=== PATIENT | female | born 1955 | race Caucasian/White ===

== ENCOUNTER 2016-07-03 05:57 | Inpatient (IN) | payer OTHER, MEDICARE ==
[2016-07-03] MEDS ORDERED: ONDANSETRON 4 MG/2 ML VIAL IVPB ONE ×2 (07:27→09:47)
[2016-07-03] MEDS ORDERED: HYDROmorphone HCL CARPU-JECT 1 MG/1 ML DISP.SYRIN IVPB ONE ×2 (07:29→09:48)
[2016-07-03] MEDS ORDERED: SODIUM CHLORIDE 1,000 ML IV STA (07:29)
[2016-07-03] MEDS ORDERED: HYDROmorphone HCL CARPU-JECT 1 MG/1 ML DISP.SYRIN ONE ×2 (07:50→09:49)
[2016-07-03] MEDS ORDERED: ONDANSETRON 4 MG/2 ML VIAL ONE ×2 (07:51→09:49)
--- NOTE | 2016-07-03 08:03 | PDOC ---
History of Present Illness - General Chief Complaint: Pain Stated Complaint: ABD PAIN Time Seen by Provider: 07/03/16 07:15 History Source: Patient Exam Limitations: No Limitations - History of Present Illness Initial Comments: 07/03/16 07:58 61-year-old female with history of chronic pancreatitis secondary to pancreatic divisum complains of worsening diffuse abdominal pain for the past 2 days, constant, nonradiating, moderate to severe, with anorexia and nausea. Patient reports that she is intermittently suffering from constipation alternating with diarrhea. Pain is intermittently relieved by Lortab. Patient denies fever/chills /melena/bright red blood per rectum/dysuria/hematuria. Patient was seen and evaluated by her primary care physician who referred her to the ER for further management. REVIEW OF SYSTEMS CONSTITUTIONAL: No fever, no chills, no fatigue EYES: No visual changes ENT: No ear pain, no sore throat CARDIOVASCULAR: No chest pain, no palpitations RESPIRATORY: No cough, no SOB GI: + abdominal pain, + nausea, no vomiting, +constipation, + diarrhea GENITOURINARY: No dysuria, no frequency, no hematuria MUSKULOSKELETAL: No backpain, no joint pain, no myalgias SKIN: No rash NEURO: No headache EXAMINATION CONSTITUTIONAL: Alert and awake; in mild distress HEAD: Normocephalic; atraumatic EYES: PERRL; EOM intact; no scleral icterus; conjunctiva are pink ENMT: External appears normal; mm-dry NECK: Supple; non-tender; no cervical lymphadenopathy CARD: Normal S1, S2; no murmurs, rubs, or gallops RESP: Normal chest excursion with respiration; breath sounds clear and equal bilaterally; no wheezes, rhonchi, or rales ABD: Soft, non-distended; + diffuse tender in all 4 quadrants ; bowel sounds are decreased in all 4 quadrants; no palpable organomegaly, no CVA tenderness bilaterally; EXT: Normal ROM in all four extremities; non-tender to palpation; distal pulses intact SKIN: Warm, dry, no rash NEURO: No focal neurological deficiencies. Past History - Past Medical History Allergies/Adverse Reactions: Allergies Allergy/AdvReac Type Severity Reaction Status Date / Time morphine Allergy Itching Verified 07/03/16 06:20 Sulfa (Sulfonamide Allergy Verified 07/03/16 06:20 Antibiotics) Home Medications: Ambulatory Orders Alprazolam 1 mg PO BID 05/17/14 Citalopram Hydrobromide [Celexa -] 20 mg PO BID 05/17/14 Lipase/Protease/Amylase [Chuon Dr 36,000 Units Capsule] 1 each PO TIDCM Ondansetron HCl [Zofran] 4 mg PO Q6H PRN #90 tablet 05/19/14 Polyethylene Glycol 3350 [Miralax 119 gm Btl -] 17 gm PO BID PRN 04/30/16 Ranitidine [Zantac -] 150 mg PO BID 04/30/16 Pantoprazole Sodium [Protonix -] 40 mg PO DAILY #30 tablet.ec 05/05/16 Anemia: No Asthma: No Cancer: No Cardiac Disorders: No CVA: No COPD: No CHF: No Dementia: No Diabetes: Yes GI Disorders: Yes (Pancreatitis, PANCREATIC DIVISUM) Disorders: No HTN: No Hypercholesterolemia: No Liver Disease: No Psychiatric Problems: Yes (ANXIETY) Suicide Attempt (Hx): No Seizures: No Thyroid Disease: No - Surgical History Abdominal Surgery: Yes (LAP ENDOMETRIOSIS, Pancreatic Surgery ) Appendectomy: No Cardiac Surgery: No Cholecystectomy: Yes Lung Surgery: No Neurologic Surgery: No Orthopedic Surgery: Yes (LAMENECTOMY 2004) - Immunization History Immunization Up to Date: No - Psycho/Social/Smoking Cessation Hx Anxiety: No Suicidal Ideation: No Smoking Status: No Smoking History: Never smoked Have you smoked in the past 12 months: No Number of Cigarettes Smoked Daily: 0 Information on smoking cessation initiated: No 'Breaking Loose' booklet given: 04/15/13 Hx Alcohol Use: No Drug/Substance Use Hx: No Substance Use Type: None Hx Substance Use Treatment: No *Physical Exam - Vital Signs Last Vital Signs Temp Pulse Resp BP Pulse Ox 97.5 F L 81 19 139/87 100 07/03/16 06:13 07/03/16 06:13 07/03/16 06:13 07/03/16 06:13 07/03/16 06:13 ED Treatment Course - LABORATORY CBC & Chemistry Diagram: 07/03/16 07:46 07/03/16 07:46 - RADIOLOGY Radiology Studies Ordered: Category Date Time Status ABDOMEN & PELVIS CT WITH CONTR [CT] Stat CT Scan 07/03/16 07:29 Ordered - Medications Given in the ED: ED Medications Discontinued Medications Generic Name Dose Route Start Last Admin Trade Name Gurpreet PRN Reason Stop Dose Admin Hydromorphone HCl 1 mg 07/03/16 07:29 07/03/16 07:52 Dilaudid Injection - IVPB 07/03/16 07:30 1 mg ONCE ONE Administration Ondansetron HCl 4 mg 07/03/16 07:27 07/03/16 07:52 Zofran Injection IVPB 07/03/16 07:28 4 mg ONCE ONE Administration Medical Decision Making - Medical Decision Making 07/03/16 08:02 Patient 61-year-old female with history of chronic pancreatitis due to pancreatic divisum who presents with diffuse abdominal pain. Differential diagnoses includes chronic pancreatitis versus pseudocyst formation versus small bowel obstruction versus colitis versus acute gastroenteritis. Will hydrate, we'll administer antiemetics and parenteral pain medication. Will obtain CT that and pelvis with by mouth and IV contrast. Will reassess. 07/03/16 09:59 Patient reassessed. Patient is resting comfortably, complaining of mild discomfort only and minimal nausea. Repeat exam reveals diffuse mild tenderness. CBC is within normal limit. CMP reveals increased BUN to creatinine ratio, normal LFTs and lipase. Urinalysis is unremarkable. We'll continue to hydrate, we'll administer additional doses of antiemetics and pain medication. Awaiting CT of abdomen and pelvis. 07/03/16 12:06 CT of abdomen and pelvis reveals mild distention of small bowel loops in the left upper and left lower quadrants as well as thickening of the wall of distal left colon. Differential diagnoses includes ileus versus partial versus early SBO versus enteritis/colitis. At this time, patient will be admitted further evaluation and treatment as well as GI consultation. Will keep nothing by mouth. Will switch to D5 half-normal NS for maintenance hydration. *DC/Admit/Observation/Transfer Diagnosis at time of Disposition: Small bowel obstruction, Dehydration Abdominal pain Qualifiers: Abdominal location: generalized Qualified Code(s): R10.84 - Generalized abdominal pain - Discharge Dispostion Condition at time of disposition: Fair Admit: Yes
[2016-07-03 08:48] LABS: BASOPHIL 0.6 % (0-2.0); EOSINOPHIL 3.2 % (0-4.5); MCH 29.3 pg (25.7-33.7); MCHC 33.2 g/dl (32.0-36.0); MEAN CELL VOLUME 88.3 fl (80-96); MEAN PLT VOLUME 6.7 fl (7.5-11.1); NEUTROPHILS 47.3 % (42.8-82.8); PLATELET COUNT 262 K/MM3 (134-434); RDW 12.6 % (11.6-15.6); WHITE BLOOD COUNT 5.4 K/mm3 (4.0-10.0)
[2016-07-03 08:51] LABS: URINE APPEARANCE CLEAR; URINE BILIRUBIN NEGATIVE (NEGATIVE); URINE BLOOD NEGATIVE (NEGATIVE); URINE COLOR LTYELLOW; URINE GLUCOSE (UA) NEGATIVE (NEGATIVE); URINE KETONE NEGATIVE (NEGATIVE); URINE LEUK ESTERASE NEGATIVE (NEGATIVE); URINE NITRITE NEGATIVE (NEGATIVE); URINE PROTEIN NEGATIVE (NEGATIVE); URINE UROBILINOGEN NEGATIVE E.U./dl (0.2-1.0)
[2016-07-03 09:05] LABS: INR 1.08 (0.82-1.09); PROTHROMBIN TIME (PATIENT) 11.9 SEC (9.98-11.88)
[2016-07-03 09:31] LABS: ALBUMIN 4.1 g/dl (3.4-5.0); ALK PHOS 87 U/L (45-117); ANION GAP 8 (8-16); BILIRUBIN,TOTAL 0.5 mg/dL (0.2-1.0); CO2 31 mmol/L (21-32); CREATININE 0.6 mg/dL (0.55-1.02); GLUCOSE,RANDOM 70 mg/dL (74-106); SGPT/ALT 35 U/L (12-78); TOT PROT 7.6 g/dl (6.4-8.2)
[2016-07-03 09:35] LABS: SGOT/AST 41 U/L (15-37)
[2016-07-03] MEDS ORDERED: SODIUM CHLORIDE 500 ML IV STA (09:47)
[2016-07-03] MEDS: DEXTROSE 5%-0.45% SALINE 1,000 ML IV SCH (12:11)
[2016-07-03] MEDS ORDERED: LORazepam 1 MG TABLET PO ONE (12:34)
[2016-07-03] MEDS ORDERED: CITALOPRAM HYDROBROMIDE 10 MG TABLET (FP) PO ONE (12:34)
[2016-07-03] MEDS ORDERED: ALPRAZolam 2 MG TABLET PO ONE (12:36)
[2016-07-03] MEDS ORDERED: CITALOPRAM HYDROBROMIDE 10 MG TABLET (FP) ONE (12:38)
[2016-07-03] MEDS ORDERED: ALPRAZolam 2 MG TABLET ONE (12:38)
--- NOTE | 2016-07-03 13:24 | HP ---
Admitting History and Physical - Primary Care Physician PCP: Joellen Smith - Admission Chief Complaint: SBO History Source: Medical Record - Past Medical History Gastrointestinal: Yes: Pancreatitis, Other (chronic abd pain s/p multiple celiac blocks, PANCREATIC DIVISUM, S/P 3 PANCREATIC SURGICAL PROCEDURES TWO BY DR WOLFE AT [facility] , SEES PANCREATIC SURGEONS AT [facility], NEW DIAGNOSIS OF POSSIBLE ACHALASIAHAS MANOMETRY APPT IN MAY, HER PAIN CONTROL MD IS EVARISTO LOWRY. RECENTLY WENT OFF HER PRESCRIBED DIET DUE TO HOLIDAYS AND STARTED TO HAVE PAIN, DOES TAKE PANCREATIC ENZYMES ) Hepatobiliary: Yes: Other (S/P WHIPPLE) Psych: Yes: Anxiety, Depression Musculoskeletal: Yes: Other (h/o patella fracture). 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 Travel: No Home Medications - Allergies Allergies/Adverse Reactions: Allergies Allergy/AdvReac Type Severity Reaction Status Date / Time morphine Allergy Itching Verified 07/03/16 06:20 Sulfa (Sulfonamide Allergy Verified 07/03/16 06:20 Antibiotics) - Home Medications Home Medications: Ambulatory Orders Alprazolam 1 mg PO BID 05/17/14 Citalopram Hydrobromide [Celexa -] 20 mg PO BID 05/17/14 Lipase/Protease/Amylase [Reji Torres 36,000 Units Capsule] 1 each PO TIDCM Ondansetron HCl [Zofran] 4 mg PO Q6H PRN #90 tablet 05/19/14 Polyethylene Glycol 3350 [Miralax 119 gm Btl -] 17 gm PO BID PRN 04/30/16 Ranitidine [Zantac -] 150 mg PO BID 04/30/16 Pantoprazole Sodium [Protonix -] 40 mg PO DAILY #30 tablet.ec 05/05/16 Review of Systems - Review of Systems Constitutional: denies: Chills, Fever Cardiovascular: denies: Chest Pain Respiratory: denies: SOB Gastrointestinal: reports: Abdominal Pain, Nausea Physical Examination Vital Signs: Vital Signs Temperature 97.5 F L 07/03/16 06:13 Pulse Rate 18 L 07/03/16 12:04 Respiratory Rate 18 07/03/16 12:04 Blood Pressure 116/73 07/03/16 12:04 O2 Sat by Pulse Oximetry (%) 98 07/03/16 12:04 Findings/Remarks: C/O PAIN & ANXIETY -> WANTS HOME Rx RESTARTED Constitutional: Yes: Anxious Cardiovascular: Yes: Regular Rate and Rhythm, S1, S2 Respiratory: Yes: CTA Bilaterally Gastrointestinal: Yes: Soft. No: Normal Bowel Sounds (LOW? BS) Edema: No Imaging - Results Cat Scan: Report Reviewed Problem List - Problems (1) Abdominal pain Code(s): R10.9 - UNSPECIFIED ABDOMINAL PAIN Qualifiers: Abdominal location: generalized Qualified Code(s): R10.84 - Generalized abdominal pain (2) Chronic pancreatitis Code(s): K86.1 - OTHER CHRONIC PANCREATITIS (3) Dehydration Code(s): E86.0 - DEHYDRATION (4) Small bowel obstruction Code(s): K56.69 - OTHER INTESTINAL OBSTRUCTION (5) Depression Code(s): F32.9 - MAJOR DEPRESSIVE DISORDER, SINGLE EPISODE, UNSPECIFIED (6) Opioid dependence Code(s): F11.20 - OPIOID DEPENDENCE, UNCOMPLICATED Assessment/Plan 61-year-old female with history of chronic pancreatitis secondary to pancreatic divisum complains of worsening diffuse abdominal pain for the past 2 days, constant, nonradiating, moderate to severe, with anorexia and nausea. Patient reports that she is intermittently suffering from constipation alternating with diarrhea. Pain is intermittently relieved by Lortab. Patient denies fever/chills /melena/bright red blood per rectum/dysuria/hematuria. Patient was seen and evaluated by her primary care physician who referred her to the ER for further management. (1) Abdominal pain Code(s): R10.9 - UNSPECIFIED ABDOMINAL PAIN Qualifiers: Abdominal location: generalized Qualified Code(s): R10.84 - Generalized abdominal pain + H/O LAP ENDOMETRIOSIS, Pancreatic Surgery CTAP NOTED GI & GEN SURG CONSULTED NPO IVF DILAUDID (2) Chronic pancreatitis Code(s): K86.1 - OTHER CHRONIC PANCREATITIS LIPASE NEG (3) Dehydration Code(s): E86.0 - DEHYDRATION ON IVF (4) Small bowel obstruction Code(s): K56.69 - OTHER INTESTINAL OBSTRUCTION (5) Depression Code(s): F32.9 - MAJOR DEPRESSIVE DISORDER, SINGLE EPISODE, UNSPECIFIED BENZO RESTARTED (6) Opioid dependence Code(s): F11.20 - OPIOID DEPENDENCE, UNCOMPLICATED SA CESSATION ED GIVEN PASTOR MORAES
[2016-07-03] MEDS ORDERED: HYDROmorphone HCL CARPU-JECT 1 MG/1 ML DISP.SYRIN IVPB PRN (13:51)
[2016-07-03] MEDS: ONDANSETRON 4 MG/2 ML VIAL IVPB PRN ×2 (14:35→21:40)
[2016-07-03] MEDS: ALPRAZolam 2 MG TABLET PO SCH ×2 (14:40→22:28)
[2016-07-03] MEDS: PANTOPRAZOLE SODIUM 100 ML IVPB SCH (14:40)
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
[2016-07-03 15:13] VITALS: BMI 22.3
[2016-07-03] MEDS ORDERED: HYDROmorphone HCL CARPU-JECT 2 MG/1 ML DISP.SYRIN IVPB ONE (16:30)
[2016-07-03] MEDS: LIPASE/PROTEASE/AMYLASE 6,000 UNIT CAPSULE PO SCH (17:55)
[2016-07-03] MEDS: HYDROmorphone HCL CARPU-JECT 2 MG/1 ML DISP.SYRIN IVPB PRN (20:28)
[2016-07-03] MEDS: POLYETHYLENE GLYCOL 3350 119 GM BTL PO PRN (22:28)
[2016-07-03] MEDS: CITALOPRAM HYDROBROMIDE 20 MG TABLET (FP) PO SCH (22:28)
[2016-07-04] MEDS: HYDROmorphone HCL CARPU-JECT 2 MG/1 ML DISP.SYRIN IVPB PRN ×4 (04:02→21:40)
[2016-07-04 07:57] LABS: AMYLASE 83 U/L (25-115); C-REACTIVE PROTEIN < 0.3 MG/DL (0.00-0.3)
[2016-07-04 08:00] LABS: ALBUMIN 3.3 g/dl (3.4-5.0); ANION GAP 9 (8-16); CALCIUM 8.6 mg/dL (8.5-10.1); CO2 30 mmol/L (21-32); GLUCOSE,RANDOM 113 mg/dL (74-106)
[2016-07-04 08:02] LABS: ALK PHOS 77 U/L (45-117); BILIRUBIN,TOTAL 0.8 mg/dL (0.2-1.0); CREATININE 0.7 mg/dL (0.55-1.02); LDH 154 U/L (84-246); SGOT/AST 31 U/L (15-37); SGPT/ALT 34 U/L (12-78); TOT PROT 6.1 g/dl (6.4-8.2)
[2016-07-04 08:38] LABS: BASOPHIL 0.5 % (0-2.0); EOSINOPHIL 4.7 % (0-4.5); MCH 29.5 pg (25.7-33.7); MCHC 33.1 g/dl (32.0-36.0); MEAN CELL VOLUME 88.9 fl (80-96); MEAN PLT VOLUME 6.5 fl (7.5-11.1); NEUTROPHILS 47.9 % (42.8-82.8); PLATELET COUNT 214 K/MM3 (134-434); RDW 12.6 % (11.6-15.6); WHITE BLOOD COUNT 4.1 K/mm3 (4.0-10.0)
[2016-07-04] MEDS ORDERED: PT OWN MED DRAWER 7, Y5N ONE (09:29)
[2016-07-04] MEDS: CITALOPRAM HYDROBROMIDE 20 MG TABLET (FP) PO SCH ×2 (09:31→21:39)
[2016-07-04] MEDS: PANTOPRAZOLE SODIUM 100 ML IVPB SCH (09:31)
[2016-07-04] MEDS: ALPRAZolam 2 MG TABLET PO SCH ×2 (09:31→21:39)
[2016-07-04] MEDS: LIPASE/PROTEASE/AMYLASE 6,000 UNIT CAPSULE PO SCH ×4 (09:32→17:33)
[2016-07-04] MEDS: DEXTROSE 5%-0.45% SALINE 1,000 ML IV SCH ×3 (09:33→21:41)
[2016-07-04] MEDS: ONDANSETRON 4 MG/2 ML VIAL IVPB PRN ×2 (09:45→16:21)
--- NOTE | 2016-07-04 10:19 | PN ---
Progress Note, Physician - Current Medication List Current Medications: Active Medications Alprazolam (Xanax -) 1 mg PO BID [facility] Last Admin: 07/04/16 09:31 Dose: 1 mg Citalopram Hydrobromide (Celexa -) 20 mg PO BID [facility] Last Admin: 07/04/16 09:31 Dose: 20 mg Hydromorphone HCl (Dilaudid Injection -) 2 mg IVPB Q4H PRN PRN Reason: PAIN Last Admin: 07/04/16 09:45 Dose: 2 mg Dextrose/Sodium Chloride (D5-1/2ns -) 1,000 mls @ 125 mls/hr IV ASDIR [facility] Last Admin: 07/04/16 09:33 Dose: 125 mls/hr Pantoprazole Sodium (Protonix 40mg Ivpb (Pre-Docked)) 100 mls @ 200 mls/hr IVPB DAILY [facility] Last Admin: 07/04/16 09:31 Dose: 200 mls/hr Ondansetron HCl (Zofran Injection) 4 mg IVPB Q6H PRN PRN Reason: NAUSEA Last Admin: 07/04/16 09:45 Dose: 4 mg Pancrelipase (Creon Dr 6,000 Units Capsule) 6 cap PO TIDCM [facility] Last Admin: 07/04/16 09:35 Dose: Not Given Polyethylene Glycol (Miralax (For Daily Use) -) 17 gm PO BID PRN PRN Reason: CONSTIPATION Last Admin: 07/03/16 22:28 Dose: 17 grams - Objective Vital Signs: Vital Signs Temperature 98.5 F 07/04/16 06:46 Pulse Rate 68 07/04/16 06:46 Respiratory Rate 20 07/04/16 06:46 Blood Pressure 99/56 07/04/16 06:46 O2 Sat by Pulse Oximetry (%) 95 07/03/16 21:00 Cardiovascular: Yes: Regular Rate and Rhythm, S1, S2 Respiratory: Yes: CTA Bilaterally Gastrointestinal: Yes: Normal Bowel Sounds, Soft, Tenderness Edema: No Labs: CBC, BMP 07/04/16 06:15 07/04/16 06:15 INR, PTT INR 1.08 (0.82-1.09) 07/03/16 07:46 Problem List - Problems (1) Abdominal pain Code(s): R10.9 - UNSPECIFIED ABDOMINAL PAIN Qualifiers: Abdominal location: generalized Qualified Code(s): R10.84 - Generalized abdominal pain (2) Chronic pancreatitis Code(s): K86.1 - OTHER CHRONIC PANCREATITIS Qualifiers: Pancreatitis type: unspecified pancreatitis type Qualified Code(s): K86.1 - Other chronic pancreatitis (3) Dehydration Code(s): E86.0 - DEHYDRATION (4) Small bowel obstruction Code(s): K56.69 - OTHER INTESTINAL OBSTRUCTION (5) Depression Code(s): F32.9 - MAJOR DEPRESSIVE DISORDER, SINGLE EPISODE, UNSPECIFIED (6) Opioid dependence Code(s): F11.20 - OPIOID DEPENDENCE, UNCOMPLICATED Assessment/Plan 61-year-old female with history of chronic pancreatitis secondary to pancreatic divisum complains of worsening diffuse abdominal pain for the past 2 days, constant, nonradiating, moderate to severe, with anorexia and nausea. Patient reports that she is intermittently suffering from constipation alternating with diarrhea. Pain is intermittently relieved by Lortab. Patient denies fever/chills /melena/bright red blood per rectum/dysuria/hematuria. Patient was seen and evaluated by her primary care physician who referred her to the ER for further management. (1) Abdominal pain Code(s): R10.9 - UNSPECIFIED ABDOMINAL PAIN Qualifiers: Abdominal location: generalized Qualified Code(s): R10.84 - Generalized abdominal pain + H/O LAP ENDOMETRIOSIS, Pancreatic Surgery CTAP NOTED GI CONSULT NOTED -> F/U W/U GEN SURG CONSULTED NPO -> WILL TRY PO IVF DILAUDID (2) Chronic pancreatitis Code(s): K86.1 - OTHER CHRONIC PANCREATITIS LIPASE NEG (3) Dehydration Code(s): E86.0 - DEHYDRATION ON IVF (4) Small bowel obstruction Code(s): K56.69 - OTHER INTESTINAL OBSTRUCTION (5) Depression Code(s): F32.9 - MAJOR DEPRESSIVE DISORDER, SINGLE EPISODE, UNSPECIFIED BENZO RESTARTED (6) Opioid dependence Code(s): F11.20 - OPIOID DEPENDENCE, UNCOMPLICATED SA CESSATION ED GIVEN PASTOR MORAES
--- NOTE | 2016-07-04 15:21 | PN ---
GI Progress Note Subjective: GI NOte: No vomiting. Pain subsiding. Tolerating liquids but reluctant to try solids. FUA reveals no obstruction and CT contrast has reached the colon. - Objective Vital Signs: Vital Signs Temperature 98.1 F 07/04/16 14:35 Pulse Rate 68 07/04/16 14:35 Respiratory Rate 18 07/04/16 14:35 Blood Pressure 106/62 07/04/16 08:00 O2 Sat by Pulse Oximetry (%) 98 07/04/16 09:00 CBC,CMP WBC 4.1 K/mm3 (4.0-10.0) 07/04/16 06:15 RBC 4.55 M/mm3 (3.60-5.2) 07/04/16 06:15 Hgb 13.4 GM/dL (10.7-15.3) D 07/04/16 06:15 Hct 40.5 % (32.4-45.2) 07/04/16 06:15 MCV 88.9 fl (80-96) 07/04/16 06:15 MCHC 33.1 g/dl (32.0-36.0) 07/04/16 06:15 RDW 12.6 % (11.6-15.6) 07/04/16 06:15 Plt Count 214 K/MM3 (134-434) 07/04/16 06:15 MPV 6.5 fl (7.5-11.1) L 07/04/16 06:15 Neutrophils % 47.9 % (42.8-82.8) 07/04/16 06:15 Lymphocytes % 34.7 % (8-40) 07/04/16 06:15 Monocytes % 12.2 % (3.8-10.2) H 07/04/16 06:15 Eosinophils % 4.7 % (0-4.5) H 07/04/16 06:15 Basophils % 0.5 % (0-2.0) 07/04/16 06:15 Sodium 144 mmol/L (136-145) 07/04/16 06:15 Potassium 4.4 mmol/L (3.5-5.1) 07/04/16 06:15 Chloride 105 mmol/L (98-107) 07/04/16 06:15 Carbon Dioxide 30 mmol/L (21-32) 07/04/16 06:15 Anion Gap 9 (8-16) 07/04/16 06:15 BUN 11 mg/dL (7-18) D 07/04/16 06:15 Creatinine 0.7 mg/dL (0.55-1.02) 07/04/16 06:15 Creat Clearance w eGFR > 60 (>60) 07/04/16 06:15 Random Glucose 113 mg/dL (74-106) H D 07/04/16 06:15 Calcium 8.6 mg/dL (8.5-10.1) 07/04/16 06:15 Total Bilirubin 0.8 mg/dL (0.2-1.0) D 07/04/16 06:15 AST 31 U/L (15-37) D 07/04/16 06:15 ALT 34 U/L (12-78) 07/04/16 06:15 Alkaline Phosphatase 77 U/L (45-117) 07/04/16 06:15 LD Total 154 U/L (84-246) 07/04/16 06:15 C-Reactive Protein < 0.3 MG/DL (0.00-0.3) 07/04/16 06:15 Total Protein 6.1 g/dl (6.4-8.2) L 07/04/16 06:15 Albumin 3.3 g/dl (3.4-5.0) L 07/04/16 06:15 Total Amylase 83 U/L (25-115) 07/04/16 06:15 Lipase 159 U/L (73-393) 07/04/16 06:15 Constitutional: Calm ...Auscultate: Yes: Normoactive Bowel Sounds ...Palpate: Yes: Soft, Other (nontender today) Labs: CBC, BMP 07/04/16 06:15 07/04/16 06:15 INR, PTT INR 1.08 (0.82-1.09) 07/03/16 07:46 Assessment/Plan Will advance to full liquids. Enterography pending. Dr Chavira will return tomorrow. Problem List - Problems (1) Pancreas divisum Code(s): Q45.3 - OTH CONGENITAL MALFORMATIONS OF PANCREAS AND PANCREATIC DUCT (2) History of partial pancreatectomy Code(s): Z90.411 - ACQUIRED PARTIAL ABSENCE OF PANCREAS (3) Hx of colonoscopy with polypectomy Code(s): Z98.89 - OTHER SPECIFIED POSTPROCEDURAL STATES * DO NOT USE * (4) History of Clostridium difficile colitis Code(s): Z86.19 - PERSONAL HISTORY OF OTHER INFECTIOUS AND PARASITIC DISEASES (5) Diverticula of colon Code(s): K57.30 - DVRTCLOS OF LG INT W/O PERFORATION OR ABSCESS W/O BLEEDING (6) Endometriosis Code(s): N80.9 - ENDOMETRIOSIS, UNSPECIFIED (7) History of cholecystectomy Code(s): Z90.49 - ACQUIRED ABSENCE OF OTHER SPECIFIED PARTS OF DIGESTIVE TRACT (

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
[2016-07-04] MEDS: POLYETHYLENE GLYCOL 3350 119 GM BTL PO PRN (21:39)
[2016-07-05] MEDS: LORAZEPAM CARPU-JECT 2 MG/ML DISP.SYRIN IVPUSH PRN ×3 (00:20→21:30)
[2016-07-05] MEDS: HYDROmorphone HCL CARPU-JECT 2 MG/1 ML DISP.SYRIN IVPB PRN ×5 (02:14→22:20)
[2016-07-05] MEDS: ONDANSETRON 4 MG/2 ML VIAL IVPB PRN (05:36)
[2016-07-05 07:58] LABS: BASOPHIL 0.7 % (0-2.0); EOSINOPHIL 4.2 % (0-4.5); MCH 29.5 pg (25.7-33.7); MCHC 33.5 g/dl (32.0-36.0); MEAN CELL VOLUME 88.1 fl (80-96); MEAN PLT VOLUME 6.4 fl (7.5-11.1); NEUTROPHILS 45.2 % (42.8-82.8); PLATELET COUNT 206 K/MM3 (134-434); RDW 12.3 % (11.6-15.6); WHITE BLOOD COUNT 4.4 K/mm3 (4.0-10.0)
[2016-07-05] MEDS: LIPASE/PROTEASE/AMYLASE 6,000 UNIT CAPSULE PO SCH ×3 (08:29→17:33)
[2016-07-05 08:35] LABS: ALBUMIN 3.7 g/dl (3.4-5.0); ALK PHOS 77 U/L (45-117); ANION GAP 9 (8-16); BILIRUBIN,TOTAL 0.7 mg/dL (0.2-1.0); CO2 30 mmol/L (21-32); CREATININE 0.7 mg/dL (0.55-1.02); GLUCOSE,RANDOM 96 mg/dL (74-106); SGOT/AST 32 U/L (15-37); SGPT/ALT 35 U/L (12-78); TOT PROT 6.5 g/dl (6.4-8.2)
[2016-07-05] MEDS: CITALOPRAM HYDROBROMIDE 20 MG TABLET (FP) PO SCH ×3 (09:28→22:13)
[2016-07-05] MEDS: ALPRAZolam 2 MG TABLET PO SCH ×3 (09:28→22:13)
[2016-07-05] MEDS: PANTOPRAZOLE SODIUM 100 ML IVPB SCH (09:43)
[2016-07-05] MEDS ORDERED: PT OWN MED DRAWER 7, Y5N ONE ×2 (12:18→20:46)
--- NOTE | 2016-07-05 12:43 | PN ---
Progress Note, Physician Chief Complaint: patient seen and examined back from CT scan says abdominal pain slight better had BM today - Current Medication List Current Medications: Active Medications Alprazolam (Xanax -) 1 mg PO BID [facility] Last Admin: 07/05/16 12:20 Dose: 1 mg Citalopram Hydrobromide (Celexa -) 20 mg PO BID [facility] Last Admin: 07/05/16 12:19 Dose: 20 mg Hydromorphone HCl (Dilaudid Injection -) 2 mg IVPB Q4H PRN PRN Reason: PAIN Last Admin: 07/05/16 12:20 Dose: 2 mg Dextrose/Sodium Chloride (D5-1/2ns -) 1,000 mls @ 125 mls/hr IV ASDIR [facility] Last Admin: 07/04/16 21:41 Dose: 125 mls/hr Pantoprazole Sodium (Protonix 40mg Ivpb (Pre-Docked)) 100 mls @ 200 mls/hr IVPB DAILY [facility] Last Admin: 07/05/16 09:43 Dose: 200 mls/hr Lorazepam (Ativan Injection -) 1 mg IVPUSH Q6H PRN Last Admin: 07/05/16 10:14 Dose: 1 mg Ondansetron HCl (Zofran Injection) 4 mg IVPB Q6H PRN PRN Reason: NAUSEA Last Admin: 07/05/16 05:36 Dose: 4 mg Pancrelipase (Creon Dr 6,000 Units Capsule) 6 cap PO TIDCM [facility] Last Admin: 07/05/16 12:19 Dose: 6 cap Polyethylene Glycol (Miralax (For Daily Use) -) 17 gm PO BID PRN PRN Reason: CONSTIPATION Last Admin: 07/04/16 21:39 Dose: 17 grams - Objective Vital Signs: Vital Signs Temperature 98.4 F 07/05/16 09:00 Pulse Rate 68 07/05/16 09:00 Respiratory Rate 18 07/05/16 09:00 Blood Pressure 111/67 07/05/16 09:00 O2 Sat by Pulse Oximetry (%) 98 07/05/16 09:00 Constitutional: Yes: Calm Neck: Yes: Trachea Midline Cardiovascular: Yes: Regular Rate and Rhythm, S1, S2 Respiratory: Yes: CTA Bilaterally Gastrointestinal: Yes: Normal Bowel Sounds, Tenderness (epigastric region) Edema: No Neurological: Yes: Alert, Oriented Labs: CBC, BMP 07/05/16 06:05 07/05/16 06:05 INR, PTT INR 1.08 (0.82-1.09) 07/03/16 07:46 Problem List - Problems (1) Abdominal pain Assessment/Plan: CT ENTEROGRAphy done results pending % HIAA 24 hr urine collection in progress to rule out small bowel carcinoid tumor dr clark Code(s): R10.9 - UNSPECIFIED ABDOMINAL PAIN Qualifiers: Abdominal location: generalized Qualified Code(s): R10.84 - Generalized abdominal pain (2) Chronic pancreatitis Assessment/Plan: see above Code(s): K86.1 - OTHER CHRONIC PANCREATITIS Qualifiers: Pancreatitis type: unspecified pancreatitis type Qualified Code(s): K86.1 - Other chronic pancreatitis (3) Dysphagia Assessment/Plan: schedule for testing at [facility] for mamometry full liquid diet Code(s): R13.10 - DYSPHAGIA, UNSPECIFIED (4) Anxiety Assessment/Plan: xaanax Code(s): F41.9 - ANXIETY DISORDER, UNSPECIFIED
--- NOTE | 2016-07-05 15:12 | PN ---
Progress Note, Physician - Current Medication List Current Medications: Active Medications Alprazolam (Xanax -) 1 mg PO BID [facility] Last Admin: 07/05/16 12:20 Dose: 1 mg Citalopram Hydrobromide (Celexa -) 20 mg PO BID [facility] Last Admin: 07/05/16 12:19 Dose: 20 mg Hydromorphone HCl (Dilaudid Injection -) 2 mg IVPB Q4H PRN PRN Reason: PAIN Last Admin: 07/05/16 12:20 Dose: 2 mg Dextrose/Sodium Chloride (D5-1/2ns -) 1,000 mls @ 125 mls/hr IV ASDIR [facility] Last Admin: 07/04/16 21:41 Dose: 125 mls/hr Pantoprazole Sodium (Protonix 40mg Ivpb (Pre-Docked)) 100 mls @ 200 mls/hr IVPB DAILY [facility] Last Admin: 07/05/16 09:43 Dose: 200 mls/hr Lorazepam (Ativan Injection -) 1 mg IVPUSH Q6H PRN Last Admin: 07/05/16 10:14 Dose: 1 mg Ondansetron HCl (Zofran Injection) 4 mg IVPB Q6H PRN PRN Reason: NAUSEA Last Admin: 07/05/16 05:36 Dose: 4 mg Pancrelipase (Creon Dr 6,000 Units Capsule) 6 cap PO TIDCM [facility] Last Admin: 07/05/16 12:19 Dose: 6 cap Polyethylene Glycol (Miralax (For Daily Use) -) 17 gm PO BID PRN PRN Reason: CONSTIPATION Last Admin: 07/04/16 21:39 Dose: 17 grams - Objective Vital Signs: Vital Signs Temperature 97.4 F L 07/05/16 14:27 Pulse Rate 72 07/05/16 14:27 Respiratory Rate 18 07/05/16 14:27 Blood Pressure 90/46 07/05/16 14:27 O2 Sat by Pulse Oximetry (%) 98 07/05/16 09:00 Labs: CBC, BMP 07/05/16 06:05 07/05/16 06:05 INR, PTT INR 1.08 (0.82-1.09) 07/03/16 07:46 Problem List - Problems (1) Abdominal pain Code(s): R10.9 - UNSPECIFIED ABDOMINAL PAIN Qualifiers: Abdominal location: generalized Qualified Code(s): R10.84 - Generalized abdominal pain (2) Chronic pancreatitis Code(s): K86.1 - OTHER CHRONIC PANCREATITIS Qualifiers: Pancreatitis type: unspecified pancreatitis type Qualified Code(s): K86.1 - Other chronic pancreatitis (3) Depression Code(s): F32.9 - MAJOR DEPRESSIVE DISORDER, SINGLE EPISODE, UNSPECIFIED (4) 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 She says her midabdominal pain is more disabling than the hernia. She has plans for upper abdominal surgery in [place]. CT enterography , has not been reported. No intestinal obstruction seen. Ventral hernia, / incisional . Will follow.
[2016-07-05] MEDS: DEXTROSE 5%-0.45% SALINE 1,000 ML IV SCH (15:39)
--- NOTE | 2016-07-05 18:27 | PN ---
GI Progress Note Subjective: GASTROENTEROLOGY FEELS A LITTLE BETTER, TOLERATES FULL LIQUID, CT SCAN /ENTEROGRAPHY IS PENDING 24 HOUR URINE FOR 5 HIAA PENDING ( I BELIEVE THIS WAS DONE BEFORE) - Objective Vital Signs: Vital Signs Temperature 98.1 F 07/05/16 17:18 Pulse Rate 16 L 07/05/16 17:18 Respiratory Rate 16 07/05/16 17:18 Blood Pressure 113/67 07/05/16 17:18 O2 Sat by Pulse Oximetry (%) 98 07/05/16 09:00 Constitutional: Calm, Other (OVERSEDATED) Eyes: Yes: Conjunctiva Clear HENT: Yes: WNL Cardiovascular: Yes: WNL Respiratory: Yes: WNL Gastrointestinal Inspection: Yes: Distention, Other (SCARS) ...Auscultate: Yes: Hypoactive Bowel Sounds ...Palpate: Yes: Soft Extremities: Yes: WNL Labs: CBC, BMP 07/05/16 06:05 07/05/16 06:05 INR, PTT INR 1.08 (0.82-1.09) 07/03/16 07:46 Problem List - Problems (1) Small bowel obstruction Assessment/Plan: RESOLVING PARTIAL SBO: CT ENTREROGRAPHY PERFORMED BUT NOT REPORTED OF YET , AWAIT 24 HOUR URINE FOR 5 HIAA. Code(s): K56.69 - OTHER INTESTINAL OBSTRUCTION (2) Chronic pancreatitis Assessment/Plan: CONTINUE SAME Rx Code(s): K86.1 - OTHER CHRONIC PANCREATITIS Qualifiers: Pancreatitis type: unspecified pancreatitis type Qualified Code(s): K86.1 - Other chronic pancreatitis (3) Diabetes mellitus associated with pancreatic disease Code(s): E11.69 - TYPE 2 DIABETES MELLITUS WITH OTHER SPECIFIED COMPLICATION K86.9 - DISEASE OF PANCREAS, UNSPECIFIED (4) Dysphagia Assessment/Plan: FOR OUTPATIENT MANOMETRY Code(s): R13.10 - DYSPHAGIA, UNSPECIFIED (5) Endometriosis Code(s): N80.9 - ENDOMETRIOSIS, UNSPECIFIED (6) History of Clostridium difficile colitis Code(s): Z86.19 - PERSONAL HISTORY OF OTHER INFECTIOUS AND PARASITIC DISEASES (7) History of partial pancreatectomy Code(s): Z90.411 - ACQUIRED PARTIAL ABSENCE OF PANCREAS (8) History of peptic ulcer disease Code(s): Z87.11 - PERSONAL HISTORY OF PEPTIC ULCER DISEASE (9) Opioid dependence Code(s): F11.20 - OPIOID DEPENDENCE, UNCOMPLICATED (10) Pancreas divisum Code(s): Q45.3 - OTH CONGENITAL MALFORMATIONS OF PANCREAS AND PANCREATIC DUCT
[2016-07-06] MEDS: HYDROmorphone HCL CARPU-JECT 2 MG/1 ML DISP.SYRIN IVPB PRN ×5 (03:33→22:59)
[2016-07-06] MEDS ORDERED: PT OWN MED DRAWER 7, Y5N ONE (07:51)
[2016-07-06] MEDS: LIPASE/PROTEASE/AMYLASE 6,000 UNIT CAPSULE PO SCH ×3 (08:00→17:14)
[2016-07-06 08:24] LABS: ALBUMIN 3.6 g/dl (3.4-5.0); ANION GAP 10 (8-16); CALCIUM 8.9 mg/dL (8.5-10.1); CO2 30 mmol/L (21-32); CREATININE 0.8 mg/dL (0.55-1.02); GLUCOSE,RANDOM 121 mg/dL (74-106); SGOT/AST 31 U/L (15-37); SGPT/ALT 33 U/L (12-78)
[2016-07-06 08:25] LABS: ALK PHOS 80 U/L (45-117); BILIRUBIN,TOTAL 0.7 mg/dL (0.2-1.0); TOT PROT 6.4 g/dl (6.4-8.2)
[2016-07-06] MEDS: CITALOPRAM HYDROBROMIDE 20 MG TABLET (FP) PO SCH ×2 (09:12→22:25)
[2016-07-06] MEDS: ALPRAZolam 2 MG TABLET PO SCH ×2 (09:12→22:26)
[2016-07-06] MEDS: PANTOPRAZOLE SODIUM 100 ML IVPB SCH (09:12)
--- NOTE | 2016-07-06 10:10 | PN ---
Progress Note, Physician - Current Medication List Current Medications: Active Medications Alprazolam (Xanax -) 1 mg PO BID [facility] Last Admin: 07/06/16 09:12 Dose: 1 mg Citalopram Hydrobromide (Celexa -) 20 mg PO BID [facility] Last Admin: 07/06/16 09:12 Dose: 20 mg Hydromorphone HCl (Dilaudid Injection -) 2 mg IVPB Q4H PRN PRN Reason: PAIN Last Admin: 07/06/16 07:57 Dose: 2 mg Dextrose/Sodium Chloride (D5-1/2ns -) 1,000 mls @ 125 mls/hr IV ASDIR [facility] Last Admin: 07/05/16 15:39 Dose: 125 mls/hr Pantoprazole Sodium (Protonix 40mg Ivpb (Pre-Docked)) 100 mls @ 200 mls/hr IVPB DAILY [facility] Last Admin: 07/06/16 09:12 Dose: 200 mls/hr Lorazepam (Ativan Injection -) 1 mg IVPUSH Q6H PRN Last Admin: 07/05/16 21:30 Dose: 1 mg Ondansetron HCl (Zofran Injection) 4 mg IVPB Q6H PRN PRN Reason: NAUSEA Last Admin: 07/05/16 05:36 Dose: 4 mg Pancrelipase (Creon Dr 6,000 Units Capsule) 6 cap PO TIDCM [facility] Last Admin: 07/06/16 08:00 Dose: 6 cap Polyethylene Glycol (Miralax (For Daily Use) -) 17 gm PO BID PRN PRN Reason: CONSTIPATION Last Admin: 07/04/16 21:39 Dose: 17 grams - Objective Vital Signs: Vital Signs Temperature 97.7 F 07/06/16 06:50 Pulse Rate 70 07/06/16 06:50 Respiratory Rate 18 07/06/16 06:50 Blood Pressure 111/74 07/06/16 06:50 O2 Sat by Pulse Oximetry (%) 98 07/05/16 21:00 Labs: CBC, BMP 07/05/16 06:05 07/06/16 06:45 INR, PTT INR 1.08 (0.82-1.09) 07/03/16 07:46 Problem List - Problems (1) Abdominal pain Code(s): R10.9 - UNSPECIFIED ABDOMINAL PAIN Qualifiers: Abdominal location: generalized Qualified Code(s): R10.84 - Generalized abdominal pain (2) Chronic pancreatitis Code(s): K86.1 - OTHER CHRONIC PANCREATITIS Qualifiers: Pancreatitis type: unspecified pancreatitis type Qualified Code(s): K86.1 - Other chronic pancreatitis (3) Depression Code(s): F32.9 - MAJOR DEPRESSIVE DISORDER, SINGLE EPISODE, UNSPECIFIED (4) 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 CT enterrography, shows a loop of jejunum in left upper quadrant that is dilated, but not obstructed. "This is at the site of an anstamosis" Is the loop of bowel that ia anastamosed to the pancreas, ? Pu[place]ow procedure. Abdomen is soft , with ventral/incisional hernia. The vomiting may be due to her " achalasia" , she myla, she has had work up and is scheduled to have pneumatic dilatation of her distal esophagus. There is no acute abdominal process , that requires emegency surgery at this time..
--- NOTE | 2016-07-06 10:17 | PN ---
Progress Note, Physician - Current Medication List Current Medications: Active Medications Alprazolam (Xanax -) 1 mg PO BID [facility] Last Admin: 07/06/16 09:12 Dose: 1 mg Citalopram Hydrobromide (Celexa -) 20 mg PO BID [facility] Last Admin: 07/06/16 09:12 Dose: 20 mg Hydromorphone HCl (Dilaudid Injection -) 2 mg IVPB Q4H PRN PRN Reason: PAIN Last Admin: 07/06/16 07:57 Dose: 2 mg Dextrose/Sodium Chloride (D5-1/2ns -) 1,000 mls @ 125 mls/hr IV ASDIR [facility] Last Admin: 07/05/16 15:39 Dose: 125 mls/hr Pantoprazole Sodium (Protonix 40mg Ivpb (Pre-Docked)) 100 mls @ 200 mls/hr IVPB DAILY [facility] Last Admin: 07/06/16 09:12 Dose: 200 mls/hr Lorazepam (Ativan Injection -) 1 mg IVPUSH Q6H PRN Last Admin: 07/05/16 21:30 Dose: 1 mg Ondansetron HCl (Zofran Injection) 4 mg IVPB Q6H PRN PRN Reason: NAUSEA Last Admin: 07/05/16 05:36 Dose: 4 mg Pancrelipase (Creon Dr 6,000 Units Capsule) 6 cap PO TIDCM [facility] Last Admin: 07/06/16 08:00 Dose: 6 cap Polyethylene Glycol (Miralax (For Daily Use) -) 17 gm PO BID PRN PRN Reason: CONSTIPATION Last Admin: 07/04/16 21:39 Dose: 17 grams - Objective Vital Signs: Vital Signs Temperature 97.7 F 07/06/16 06:50 Pulse Rate 70 07/06/16 06:50 Respiratory Rate 18 07/06/16 06:50 Blood Pressure 111/74 07/06/16 06:50 O2 Sat by Pulse Oximetry (%) 98 07/05/16 21:00 Labs: CBC, BMP 07/05/16 06:05 07/06/16 06:45 INR, PTT INR 1.08 (0.82-1.09) 07/03/16 07:46 Problem List - Problems (1) Abdominal pain Code(s): R10.9 - UNSPECIFIED ABDOMINAL PAIN Qualifiers: Abdominal location: generalized Qualified Code(s): R10.84 - Generalized abdominal pain (2) Chronic pancreatitis Code(s): K86.1 - OTHER CHRONIC PANCREATITIS Qualifiers: Pancreatitis type: unspecified pancreatitis type Qualified Code(s): K86.1 - Other chronic pancreatitis (3) Depression Code(s): F32.9 - MAJOR DEPRESSIVE DISORDER, SINGLE EPISODE, UNSPECIFIED (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
--- NOTE | 2016-07-06 11:35 | PN ---
Progress Note, Physician History of Present Illness: nausea - Current Medication List Current Medications: Active Medications Alprazolam (Xanax -) 1 mg PO BID [facility] Last Admin: 07/06/16 09:12 Dose: 1 mg Citalopram Hydrobromide (Celexa -) 20 mg PO BID [facility] Last Admin: 07/06/16 09:12 Dose: 20 mg Hydromorphone HCl (Dilaudid Injection -) 2 mg IVPB Q4H PRN PRN Reason: PAIN Last Admin: 07/06/16 07:57 Dose: 2 mg Dextrose/Sodium Chloride (D5-1/2ns -) 1,000 mls @ 125 mls/hr IV ASDIR [facility] Last Admin: 07/05/16 15:39 Dose: 125 mls/hr Pantoprazole Sodium (Protonix 40mg Ivpb (Pre-Docked)) 100 mls @ 200 mls/hr IVPB DAILY [facility] Last Admin: 07/06/16 09:12 Dose: 200 mls/hr Lorazepam (Ativan Injection -) 1 mg IVPUSH Q6H PRN Last Admin: 07/05/16 21:30 Dose: 1 mg Ondansetron HCl (Zofran Injection) 4 mg IVPB Q6H PRN PRN Reason: NAUSEA Last Admin: 07/05/16 05:36 Dose: 4 mg Pancrelipase (Creon Dr 6,000 Units Capsule) 6 cap PO TIDCM [facility] Last Admin: 07/06/16 08:00 Dose: 6 cap Polyethylene Glycol (Miralax (For Daily Use) -) 17 gm PO BID PRN PRN Reason: CONSTIPATION Last Admin: 07/04/16 21:39 Dose: 17 grams - Objective Vital Signs: Vital Signs Temperature 97.7 F 07/06/16 06:50 Pulse Rate 70 07/06/16 06:50 Respiratory Rate 18 07/06/16 06:50 Blood Pressure 111/74 07/06/16 06:50 O2 Sat by Pulse Oximetry (%) 98 07/05/16 21:00 Cardiovascular: Yes: Regular Rate and Rhythm Respiratory: Yes: Regular, CTA Bilaterally Gastrointestinal: Yes: Normal Bowel Sounds, Soft, Tenderness, Epigastrium Labs: CBC, BMP 07/05/16 06:05 07/06/16 06:45 INR, PTT INR 1.08 (0.82-1.09) 07/03/16 07:46 Assessment/Plan - Problems (1) Abdominal pain Assessment/Plan: CT ENTEROGRAphy done results pending % HIAA 24 hr urine collection in progress to rule out small bowel carcinoid tumor dr clark Code(s): R10.9 - UNSPECIFIED ABDOMINAL PAIN Qualifiers: Abdominal location: generalized Qualified Code(s): R10.84 - Generalized abdominal pain (2) Chronic pancreatitis Assessment/Plan: see above Code(s): K86.1 - OTHER CHRONIC PANCREATITIS Qualifiers: Pancreatitis type: unspecified pancreatitis type Qualified Code(s): K86.1 - Other chronic pancreatitis (3) Dysphagia Assessment/Plan: schedule for testing at [facility] for mamometry full liquid diet Code(s): R13.10 - DYSPHAGIA, UNSPECIFIED (4) Anxiety Assessment/Plan: Xanax Code(s): F41.9 - ANXIETY DISORDER, UNSPECIFIED
[2016-07-06] MEDS: DEXTROSE 5%-0.45% SALINE 1,000 ML IV SCH (12:42)
[2016-07-07] MEDS: HYDROmorphone HCL CARPU-JECT 2 MG/1 ML DISP.SYRIN IVPB PRN ×3 (04:44→22:15)
[2016-07-07] MEDS ORDERED: PT OWN MED DRAWER 7, Y5N ONE ×2 (07:53→17:44)
[2016-07-07] MEDS: ONDANSETRON 4 MG/2 ML VIAL IVPB PRN (07:57)
[2016-07-07] MEDS: LIPASE/PROTEASE/AMYLASE 6,000 UNIT CAPSULE PO SCH ×3 (07:57→17:45)
--- NOTE | 2016-07-07 08:51 | PN ---
Progress Note, Physician History of Present Illness: nausea - Current Medication List Current Medications: Active Medications Alprazolam (Xanax -) 1 mg PO BID [facility] Last Admin: 07/06/16 22:26 Dose: 1 mg Citalopram Hydrobromide (Celexa -) 20 mg PO BID [facility] Last Admin: 07/06/16 22:25 Dose: 20 mg Hydromorphone HCl (Dilaudid Injection -) 2 mg IVPB BID [facility] Ondansetron HCl (Zofran Injection) 4 mg IVPB Q6H PRN PRN Reason: NAUSEA Last Admin: 07/07/16 07:57 Dose: 4 mg Pancrelipase (Creon Dr 6,000 Units Capsule) 6 cap PO TIDCM [facility] Last Admin: 07/07/16 07:57 Dose: 6 cap Pantoprazole Sodium (Protonix -) 40 mg PO DAILY [facility] Polyethylene Glycol (Miralax (For Daily Use) -) 17 gm PO BID PRN PRN Reason: CONSTIPATION Last Admin: 07/04/16 21:39 Dose: 17 grams - Objective Vital Signs: Vital Signs Temperature 98.6 F 07/06/16 17:06 Pulse Rate 78 07/06/16 17:06 Respiratory Rate 20 07/06/16 21:00 Blood Pressure 100/54 07/06/16 17:06 O2 Sat by Pulse Oximetry (%) 98 07/06/16 21:00 Cardiovascular: Yes: Regular Rate and Rhythm Respiratory: Yes: Regular, CTA Bilaterally Gastrointestinal: Yes: Normal Bowel Sounds, Soft, Tenderness, Epigastrium (MILD) Labs: CBC, BMP 07/05/16 06:05 07/06/16 06:45 INR, PTT INR 1.08 (0.82-1.09) 07/03/16 07:46 Assessment/Plan - Problems (1) Abdominal pain Assessment/Plan: CT ENTEROGRAphy done results noted and discussed with pt % HIAA 24 hr urine collection in progress to rule out small bowel carcinoid tumor dr clark Code(s): R10.9 - UNSPECIFIED ABDOMINAL PAIN Qualifiers: Abdominal location: generalized Qualified Code(s): R10.84 - Generalized abdominal pain (2) Chronic pancreatitis Assessment/Plan: see above Code(s): K86.1 - OTHER CHRONIC PANCREATITIS Qualifiers: Pancreatitis type: unspecified pancreatitis type Qualified Code(s): K86.1 - Other chronic pancreatitis (3) Dysphagia Assessment/Plan: schedule for testing at [facility] for mamometry full liquid diet Code(s): R13.10 - DYSPHAGIA, UNSPECIFIED (4) Anxiety Assessment/Plan: Xanax Code(s): F41.9 - ANXIETY DISORDER, UNSPECIFIED
[2016-07-07] MEDS: CITALOPRAM HYDROBROMIDE 20 MG TABLET (FP) PO SCH ×2 (09:19→22:15)
[2016-07-07] MEDS: ALPRAZolam 2 MG TABLET PO SCH ×2 (09:19→23:21)
[2016-07-07] MEDS: PANTOPRAZOLE 40 MG TABLET (FP) PO SCH (10:46)
--- NOTE | 2016-07-07 16:10 | PN ---
Progress Note, Physician - Current Medication List Current Medications: Active Medications Alprazolam (Xanax -) 1 mg PO BID [facility] Last Admin: 07/07/16 09:19 Dose: 1 mg Citalopram Hydrobromide (Celexa -) 20 mg PO BID [facility] Last Admin: 07/07/16 09:19 Dose: 20 mg Hydromorphone HCl (Dilaudid Injection -) 2 mg IVPB BID PRN Last Admin: 07/07/16 10:45 Dose: 2 mg Ondansetron HCl (Zofran Injection) 4 mg IVPB Q6H PRN PRN Reason: NAUSEA Last Admin: 07/07/16 07:57 Dose: 4 mg Pancrelipase (Creon Dr 6,000 Units Capsule) 6 cap PO TIDCM [facility] Last Admin: 07/07/16 14:32 Dose: Not Given Pantoprazole Sodium (Protonix -) 40 mg PO DAILY [facility] Last Admin: 07/07/16 10:46 Dose: 40 mg Polyethylene Glycol (Miralax (For Daily Use) -) 17 gm PO BID PRN PRN Reason: CONSTIPATION Last Admin: 07/04/16 21:39 Dose: 17 grams - Objective Vital Signs: Vital Signs Temperature 97.9 F 07/07/16 14:01 Pulse Rate 65 07/07/16 14:01 Respiratory Rate 20 07/07/16 14:01 Blood Pressure 106/54 07/07/16 14:01 O2 Sat by Pulse Oximetry (%) 98 07/07/16 09:00 Labs: CBC, BMP 07/05/16 06:05 07/06/16 06:45 INR, PTT INR 1.08 (0.82-1.09) 07/03/16 07:46 Problem List - Problems (1) Abdominal pain Code(s): R10.9 - UNSPECIFIED ABDOMINAL PAIN Qualifiers: Abdominal location: generalized Qualified Code(s): R10.84 - Generalized abdominal pain (2) Chronic pancreatitis Code(s): K86.1 - OTHER CHRONIC PANCREATITIS Qualifiers: Pancreatitis type: unspecified pancreatitis type Qualified Code(s): K86.1 - Other chronic pancreatitis (3) Depression Code(s): F32.9 - MAJOR DEPRESSIVE DISORDER, SINGLE EPISODE, UNSPECIFIED (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 No acute events. Urine has not been sent for HIAA.
[2016-07-08 00:06] LABS: 5-HIAA, URINE 2.9 mg/L (Undefined)
[2016-07-08] MEDS ORDERED: PT OWN MED DRAWER 7, Y5N ONE (09:15)
[2016-07-08] MEDS: HYDROmorphone HCL CARPU-JECT 2 MG/1 ML DISP.SYRIN IVPB PRN (09:17)
[2016-07-08] MEDS: POLYETHYLENE GLYCOL 3350 119 GM BTL PO PRN ×2 (09:18→21:32)
[2016-07-08] MEDS: LIPASE/PROTEASE/AMYLASE 6,000 UNIT CAPSULE PO SCH ×3 (09:18→18:20)
[2016-07-08] MEDS: ALPRAZolam 2 MG TABLET PO SCH ×2 (11:20→21:32)
[2016-07-08] MEDS: CITALOPRAM HYDROBROMIDE 20 MG TABLET (FP) PO SCH ×2 (11:20→21:31)
[2016-07-08] MEDS: PANTOPRAZOLE 40 MG TABLET (FP) PO SCH (11:36)
--- NOTE | 2016-07-08 15:55 | PN ---
Progress Note, Physician History of Present Illness: FEELS BETTER - Current Medication List Current Medications: Active Medications Alprazolam (Xanax -) [address] [facility] Last Admin: 07/08/16 11:20 Dose: 1 mg Citalopram Hydrobromide (Celexa -) [address] [facility] Last Admin: 07/08/16 11:20 Dose: 20 mg Hydromorphone HCl (Dilaudid Injection -) 2 mg IVPB BID PRN Last Admin: 07/08/16 09:17 Dose: 2 mg Ondansetron HCl (Zofran Injection) 4 mg IVPB Q6H PRN PRN Reason: NAUSEA Last Admin: 07/07/16 07:57 Dose: 4 mg Pancrelipase (Creon Dr 6,000 Units Capsule) [address] [facility] Last Admin: 07/08/16 13:15 Dose: 6 cap Pantoprazole Sodium (Protonix -) [address] [facility] Last Admin: 07/08/16 11:36 Dose: 40 mg Polyethylene Glycol (Miralax (For Daily Use) -) 17 gm PO BID PRN PRN Reason: CONSTIPATION Last Admin: 07/08/16 09:18 Dose: 17 grams - Objective Vital Signs: Vital Signs Temperature 98.4 F 07/08/16 14:17 Pulse Rate 80 07/08/16 14:17 Respiratory Rate 16 07/08/16 14:17 Blood Pressure 100/77 07/08/16 14:17 O2 Sat by Pulse Oximetry (%) 98 07/08/16 09:00 Cardiovascular: Yes: Regular Rate and Rhythm Respiratory: Yes: Regular, CTA Bilaterally Gastrointestinal: Yes: Normal Bowel Sounds, Soft, Tenderness, Epigastrium Labs: CBC, BMP 07/05/16 06:05 07/06/16 06:45 INR, PTT INR 1.08 (0.82-1.09) 07/03/16 07:46 Assessment/Plan - Problems (1) Abdominal pain Assessment/Plan: CT ENTEROGRAphy done results noted and discussed with pt % HIAA 24 hr urine collection in progress to rule out small bowel carcinoid tumor dr eduardo oswald pain meds Code(s): R10.9 - UNSPECIFIED ABDOMINAL PAIN Qualifiers: Abdominal location: generalized Qualified Code(s): R10.84 - Generalized abdominal pain (2) Chronic pancreatitis Assessment/Plan: see above Code(s): K86.1 - OTHER CHRONIC PANCREATITIS Qualifiers: Pancreatitis type: unspecified pancreatitis type Qualified Code(s): K86.1 - Other chronic pancreatitis (3) Dysphagia Assessment/Plan: schedule for testing at [facility] for mamometry advance diet Code(s): R13.10 - DYSPHAGIA, UNSPECIFIED (4) Anxiety Assessment/Plan: Xanax Code(s): F41.9 - ANXIETY DISORDER, UNSPECIFIED
--- NOTE | 2016-07-09 08:52 | DS ---
Physical Examination Vital Signs: Vital Signs Temperature 97.5 F L 07/09/16 06:53 Pulse Rate 56 L 07/09/16 06:53 Respiratory Rate 16 07/09/16 06:53 Blood Pressure 130/71 07/09/16 06:53 O2 Sat by Pulse Oximetry (%) 98 07/08/16 21:00 Neck: Yes: Supple Cardiovascular: Yes: Regular Rate and Rhythm Respiratory: Yes: Regular, CTA Bilaterally Gastrointestinal: Yes: Normal Bowel Sounds, Soft Labs: CBC, BMP 07/05/16 06:05 07/06/16 06:45 Discharge Summary Reason For Visit: SMALL BOWEL OBSTRUCTION/ ABD PAIN Current Active Problems Abdominal pain (Acute) Chronic pancreatitis (Acute) Dehydration (Acute) Depression (Acute) Diabetes mellitus associated with pancreatic disease (Acute) 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 (Acute) Diverticula of colon (Acute) Dysphagia (Acute) Endometriosis (Acute) Hemangioma of liver (Acute) History of Clostridium difficile colitis (Acute) History of cholecystectomy (Acute) History of partial pancreatectomy (Acute) History of peptic ulcer disease (Acute) Hx of colonoscopy with polypectomy (Acute) Opioid dependence (Acute) Pain (Acute) Pancreas divisum (Acute) Small bowel obstruction (Acute) Hospital Course: - Problems (1) Abdominal pain Assessment/Plan: CT ENTEROGRAphy done results noted and discussed with pt % HIAA 24 hr urine collection in progress to rule out small bowel carcinoid tumor dr eduardo oswald pain meds Code(s): R10.9 - UNSPECIFIED ABDOMINAL PAIN Qualifiers: Abdominal location: generalized Qualified Code(s): R10.84 - Generalized abdominal pain (2) Chronic pancreatitis Assessment/Plan: see above Code(s): K86.1 - OTHER CHRONIC PANCREATITIS Qualifiers: Pancreatitis type: unspecified pancreatitis type Qualified Code(s): K86.1 - Other chronic pancreatitis (3) Dysphagia Assessment/Plan: schedule for testing at [facility] for mamometry advance diet Code(s): R13.10 - DYSPHAGIA, UNSPECIFIED (4) Anxiety Assessment/Plan: Xanax Code(s): F41.9 - ANXIETY DISORDER, UNSPECIFIED Condition: Improved - Instructions Referrals: Joellen Smith MD [Primary Care Provider] - 1 Week Carlos Chavira MD [Staff Physician] - Disposition: HOME - Home Medications Comprehensive Discharge Medication List: Ambulatory Orders Alprazolam 1 mg PO BID 05/17/14 Citalopram Hydrobromide [Celexa -] 20 mg PO BID 05/17/14 Lipase/Protease/Amylase [Chuon Dr 36,000 Units Capsule] 1 each PO TIDCM Polyethylene Glycol 3350 [Miralax 119 gm Btl -] 17 gm PO BID PRN 04/30/16 Ranitidine [Zantac -] 150 mg PO BID 04/30/16 Pantoprazole Sodium [Protonix -] 40 mg PO DAILY #30 tablet.ec 05/05/16 Ondansetron HCl [Zofran] 4 mg PO Q6H PRN #90 tablet 07/09/16
[2016-07-09] MEDS: CITALOPRAM HYDROBROMIDE 20 MG TABLET (FP) PO SCH (10:09)
[2016-07-09] MEDS: ALPRAZolam 2 MG TABLET PO SCH (10:09)
[2016-07-09] MEDS: PANTOPRAZOLE 40 MG TABLET (FP) PO SCH (10:09)
[2016-07-09] MEDS ORDERED: PT OWN MED DRAWER 7, Y5N ONE (10:10)
[2016-07-09] MEDS: LIPASE/PROTEASE/AMYLASE 6,000 UNIT CAPSULE PO SCH (10:14)
[2016-07-09 11:49] VITALS: BP 127/62; PULSE 88; TEMP 97.6
== END 2016-07-09 10:51 | disposition home or self-care (01) | DRG 389 ==
LOC: JER 05:57 → JERBED 12:12 → J8W 13:31
PROVIDERS: ADMIT Family Medicine; ATTEND Family Medicine
DX: K56.60 Unspecified intestinal obstruction (principal); K86.1 Other chronic pancreatitis; Q45.3 Other congenital malformations of pancreas and pancreatic duct; F11.20 Opioid dependence, uncomplicated; E08.8 Diabetes mellitus due to underlying condition with unspecified complications; F41.9 Anxiety disorder, unspecified; E86.0 Dehydration; F32.9 Major depressive disorder, single episode, unspecified; R13.10 Dysphagia, unspecified; K57.30 Diverticulosis of large intestine without perforation or abscess without bleeding; D18.03 Hemangioma of intra-abdominal structures; I34.1 Nonrheumatic mitral (valve) prolapse; R10.84 Generalized abdominal pain; K22.0 Achalasia of cardia; R11.2 Nausea with vomiting, unspecified
CPT/HCPCS: 36415; 74020-TC; 74177-TC; 80053; 81003; 82150; 82941; 83497; 83615; 83690; 85025; 85610; 86140; 87086; 99283-25

== ENCOUNTER 2017-02-08 13:25 | Inpatient (IN) | payer OTHER, MEDICARE ==
[2017-02-08] MEDS ORDERED: HYDROmorphone HCL CARPU-JECT 1 MG/1 ML DISP.SYRIN IVPUSH ONE ×2 (14:43→17:11)
[2017-02-08] MEDS ORDERED: ONDANSETRON 4 MG/2 ML VIAL IVPB ONE (14:43)
[2017-02-08] MEDS ORDERED: SODIUM CHLORIDE 1,000 ML IV ONE (14:43)
[2017-02-08] MEDS ORDERED: ONDANSETRON 4 MG/2 ML VIAL ONE ×2 (15:05→19:11)
[2017-02-08] MEDS ORDERED: HYDROmorphone HCL CARPU-JECT 1 MG/1 ML DISP.SYRIN ONE ×3 (15:05→19:11)
[2017-02-08 15:18] LABS: BASOPHIL 0.2 % (0-2.0); EOSINOPHIL 1.4 % (0-4.5); MCH 29.9 pg (25.7-33.7); MCHC 34.6 g/dl (32.0-36.0); MEAN CELL VOLUME 86.6 fl (80-96); NEUTROPHILS 74.4 % (42.8-82.8); PLATELET COUNT 254 K/MM3 (134-434); WHITE BLOOD COUNT 7.9 K/mm3 (4.0-10.0)
--- NOTE | 2017-02-08 15:46 | PDOC ---
History of Present Illness - General History Source: Patient Exam Limitations: No Limitations - History of Present Illness Initial Comments: 02/08/17 16:40 Patient is a 62 year old female with significant past medical history of chronic pancreatitis, chronic abdominal pain, pancreatic divisum and mitral valve prolapse who presents to the ED with epigastric pain for 2 days. Patient describes the pain as deep, twisting pain localized to the epigastric area radiating to the LUQ and left back. Patient notes that these symptoms are similar to her pancreatitis pain. Patient notes that she had chocolate cake on after which she started to experience the following symptoms intermittently that has became constant two days ago. She reports diarrhea, 2 episodes today, no vomiting. She reports SOB but denies any cough and difficulty breathing. She reports chills but denies any fever. SH - Vapes, non smoker, no alcohol use or IVDU. PCP - Dr. Luis AGUIRRE - Dr. Estrella <Dolores Lemus - Last Filed: 02/08/17 16:58> <Rajeev Parker - Last Filed: 02/08/17 17:08> - General Chief Complaint: Pain Stated Complaint: PAIN (PCP SENT) SOB, ABD PAIN Time Seen by Provider: 02/08/17 14:22 Past History <Dolores Lemus - Last Filed: 02/08/17 16:58> - Past Medical History Anemia: No Asthma: No Cancer: No Cardiac Disorders: Yes (mv prolapse) CVA: No COPD: No CHF: No Dementia: No Diabetes: Yes GI Disorders: Yes (pancreatic divisum, pancreatitis) Disorders: No HTN: No Hypercholesterolemia: Yes Liver Disease: No Psychiatric Problems: Yes (ANXIETY) Suicide Attempt (Hx): No Seizures: No Thyroid Disease: No - Surgical History Abdominal Surgery: Yes (LAP ENDOMETRIOSIS, Pancreatic Surgery ) Appendectomy: No Cardiac Surgery: No Cholecystectomy: Yes Lung Surgery: No Neurologic Surgery: No Orthopedic Surgery: Yes (LAMENECTOMY 2004) - Immunization History Immunization Up to Date: No - Psycho/Social/Smoking Cessation Hx Anxiety: No Suicidal Ideation: No Smoking Status: No Smoking History: Never smoked Have you smoked in the past 12 months: No Number of Cigarettes Smoked Daily: 0 Information on smoking cessation initiated: No 'Breaking Loose' booklet given: 04/15/13 Hx Alcohol Use: No Drug/Substance Use Hx: No Substance Use Type: None Hx Substance Use Treatment: No <Rajeev Parker - Last Filed: 02/08/17 17:08> - Past Medical History Allergies/Adverse Reactions: Allergies Allergy/AdvReac Type Severity Reaction Status Date / Time morphine Allergy Itching Verified 02/08/17 13:29 Sulfa (Sulfonamide Allergy Verified 02/08/17 13:29 Antibiotics) Home Medications: Ambulatory Orders Alprazolam 1 mg PO BID 05/17/14 Citalopram Hydrobromide [Celexa -] 20 mg PO BID 05/17/14 Lipase/Protease/Amylase [Creon Dr 36,000 Units Capsule] 1 each PO TIDCM Polyethylene Glycol 3350 [Miralax 119 gm Btl -] 17 gm PO BID PRN 04/30/16 Ranitidine [Zantac -] 150 mg PO BID 04/30/16 Pantoprazole Sodium [Protonix -] 40 mg PO DAILY #30 tablet.ec 05/05/16 Ondansetron HCl [Zofran] 4 mg PO Q6H PRN #90 tablet 07/09/16 Hydrocodone/Acetaminophen [Hydrocodon-Acetaminophn 10-325] 1 each PO Q8H Review of Systems - Review of Systems Constitutional: No: Chills, Fever Respiratory: Yes: Wheezing. No: Cough, Shortness of Breath Cardiac (ROS): No: Chest Pain, Palpitations, Syncope ABD/GI: Yes: See HPI, Diarrhea, Nausea. No: Vomiting : No: Dysuria, Frequency Neurological: No: Headache All Other Systems: Reviewed and Negative <Rajeev Parker - Last Filed: 02/08/17 17:08> *Physical Exam - Vital Signs Last Vital Signs Temp Pulse Resp BP Pulse Ox 98.9 F 99 H 19 131/98 94 L 02/08/17 13:27 02/08/17 13:27 02/08/17 13:27 02/08/17 13:27 02/08/17 13:27 - Physical Exam Comments: 02/08/17 16:40 GENERAL: The patient is awake, alert, and fully oriented, in no acute distress. HEAD: Normal with no signs of trauma. EYES: Pupils equal, round and reactive to light, extraocular movements intact, sclera anicteric, conjunctiva clear with no pallor. ENT: Ears normal, nares patent, oropharynx clear without exudates. Moist mucous membranes. NECK: Normal range of motion, supple without lymphadenopathy, JVD, or masses. LUNGS: +scant end expiratory wheezes, crackles at the left base. Breath sounds equal, clear to auscultation bilaterally. No wheeze/crackles. HEART: Regular rate and rhythm, normal S1 and S2 without murmur or rub. ABDOMEN: +epigastric tenderness upon palpation. Soft, nondistended. BS wnl. No guarding or rebound. No palpable masses. No hepatosplenomegaly. EXTREMITIES: Normal range of motion, no edema. No clubbing or cyanosis. No cords, erythema, or tenderness. NEUROLOGICAL: Cranial nerves II through XII grossly intact. Normal speech. PSYCH: Normal mood, normal affect. SKIN: Warm, Dry, normal turgor, no rashes or lesions noted. <Dolores Lemus - Last Filed: 02/08/17 16:58> - Vital Signs Last Vital Signs Temp Pulse Resp BP Pulse Ox 98.9 F 99 H 19 131/98 94 L 02/08/17 13:27 02/08/17 13:27 02/08/17 13:27 02/08/17 13:27 02/08/17 13:27 <Rajeev Parker - Last Filed: 02/08/17 17:08> Heart Score/ECG Review #1 ECG reviewed & interpreted by me at: 14:08 General ECG Interpretation: Sinus Rhythm, Normal Rate (89), Normal Intervals ( qtc 459), No acute ischemic changes <Rajeev Parker - Last Filed: 02/08/17 17:08> ED Treatment Course - LABORATORY CBC & Chemistry Diagram: 02/08/17 15:00 02/08/17 15:00 - ADDITIONAL ORDERS Additional order review: Laboratory Results 02/08/17 02/08/17 02/08/17 15:00 15:00 15:00 INR 1.12 Sodium 138 Potassium 4.2 Chloride 97 L Carbon Dioxide 30 Anion Gap 11 BUN 14 D Creatinine 0.5 L D Creat Clearance w eGFR > 60 Random Glucose 94 D Calcium 9.4 Magnesium 2.3 Total Bilirubin 0.6 AST 64 H D ALT 58 D Alkaline Phosphatase 110 D Creatine Kinase 781 H Creatine Kinase Index 1.5 CK-MB (CK-2) 12.395 H Troponin I < 0.02 Total Protein 7.0 Albumin 3.9 Lipase 79 02/08/17 15:00 RBC 4.42 MCV 86.6 MCHC 34.6 RDW 13.0 MPV 7.0 L Neutrophils % 74.4 D Lymphocytes % 16.3 D Monocytes % 7.7 Eosinophils % 1.4 Basophils % 0.2 - Medications Given in the ED: ED Medications Discontinued Medications Generic Name Dose Route Start Last Admin Trade Name Freq PRN Reason Stop Dose Admin Hydromorphone HCl 1 mg 02/08/17 14:43 02/08/17 15:10 Dilaudid Injection - IVPUSH 02/08/17 14:44 1 mg ONCE ONE Administration Sodium Chloride 1,000 mls @ 1,000 mls/hr 02/08/17 14:43 02/08/17 15:10 Normal Saline - IV 02/08/17 15:42 1,000 mls/hr ONCE ONE Administration Ondansetron HCl 4 mg 02/08/17 14:43 02/08/17 15:10 Zofran Injection IVPB 02/08/17 14:44 4 mg ONCE ONE Administration <Dolores Lemus - Last Filed: 02/08/17 16:58> - LABORATORY CBC & Chemistry Diagram: 02/08/17 15:00 02/08/17 15:00 - ADDITIONAL ORDERS Additional order review: 02/08/17 15:00 RBC 4.42 MCV 86.6 MCHC 34.6 RDW 13.0 MPV 7.0 L Neutrophils % 74.4 D Lymphocytes % 16.3 D Monocytes % 7.7 Eosinophils % 1.4 Basophils % 0.2 - RADIOLOGY Radiology Studies Ordered: Category Date Time Status CHEST X-RAY PORTABLE* [RAD] Stat Radiology 02/08/17 14:47 Completed - Medications Given in the ED: ED Medications Discontinued Medications Generic Name Dose Route Start Last Admin Trade Name Freq PRN Reason Stop Dose Admin Hydromorphone HCl 1 mg 02/08/17 14:43 02/08/17 15:10 Dilaudid Injection - IVPUSH 02/08/17 14:44 1 mg ONCE ONE Administration Ondansetron HCl 4 mg 02/08/17 14:43 02/08/17 15:10 Zofran Injection IVPB 02/08/17 14:44 4 mg ONCE ONE Administration <Rajeev Parker - Last Filed: 02/08/17 17:08> Medical Decision Making - Medical Decision Making 02/08/17 16:45 A call was placed to MARIO Figueroa covering for Dr. Smith. Awaiting a call back. 02/08/17 16:58 Case discussed with MARIO Figueroa. <Dolores Lemus - Last Filed: 02/08/17 16:58> - Medical Decision Making 02/08/17 15:38 62y/o F h/o recurring pancreatitis and SBO p/w epigastric pain/nausea/diarrhea for about 2 weeks, worsened over last 2 days. Feels similar to past pancreatitis , presumably triggered by diet noncompliance after eating birthday cake on . Also noting some wheezing and very slight cough, but no cp/fever/chills/ dyspnea. VS as noted, O2 notably 94% alert, slight pallor s1s2 rrr, no m slight end-expiratory wheeze bilaterally at bases, epigastric ttp 62y/o F with sxs consistent with past pancreatitis, new wheezing ? infectious v. effusion. r/o cardiac etiology. labs, ua ekg, CXR ivf, pain control, nausea control reassess 02/08/17 17:06 labs wnl, including lipase - lipase has been normal in the past as well. cxr without acute pathology. O2 sat improves with deep breaths to 100%. ? atelectasis. still requiring dilaudid for pain control. Discussed with MARIO Figueroa, covering Luis. Accepts for inpatient med/surg, requests consult with Dr. Dejesus and CTAP, which was ordered. <Rajeev Parker - Last Filed: 02/08/17 17:08> *DC/Admit/Observation/Transfer - Attestations Scribe Attestion: 02/08/17 16:41 Documentation prepared by ASHWINI Olmedo, acting as medical assistant instructor for Rajeev Parker MD. <Dolores Lemus - Last Filed: 02/08/17 16:58> - Discharge Dispostion Admit: Yes <Rajeev Parker - Last Filed: 02/08/17 17:08> Diagnosis at time of Disposition: Abdominal pain Qualifiers: Abdominal location: epigastric Qualified Code(s): R10.13 - Epigastric pain Chronic pancreatitis Qualifiers: Pancreatitis type: unspecified pancreatitis type Qualified Code(s): K86.1 - Other chronic pancreatitis - Discharge Dispostion Condition at time of disposition: Fair - Referrals Referrals: Joellen Smith MD [Primary Care Provider] -
[2017-02-08 15:55] LABS: ALBUMIN 3.9 g/dl (3.4-5.0); ANION GAP 11 (8-16); CALCIUM 9.4 mg/dL (8.5-10.1); CO2 30 mmol/L (21-32); GLUCOSE,RANDOM 94 mg/dL (74-106)
[2017-02-08 15:56] LABS: INR 1.12 (0.82-1.09); PROTHROMBIN TIME (PATIENT) 12.3 SEC (9.98-11.88)
[2017-02-08 15:57] LABS: CPK 781 IU/L (26-192); TROPONIN I < 0.02 ng/ml (0.00-0.05)
[2017-02-08 15:58] LABS: ALK PHOS 110 U/L (45-117); BILIRUBIN,TOTAL 0.6 mg/dL (0.2-1.0); CREATININE 0.5 mg/dL (0.55-1.02); MAGNESIUM 2.3 mg/dL (1.8-2.4); SGOT/AST 64 U/L (15-37); SGPT/ALT 58 U/L (12-78)
[2017-02-08] MEDS ORDERED: POLYETHYLENE GLYCOL 3350 119 GM BTL PO PRN ×2 (18:22→23:51)
[2017-02-08] MEDS ORDERED: ACETAMINOPHEN 325 MG TABLET (FP) PO PRN (18:22)
[2017-02-08] MEDS: HYDROmorphone HCL CARPU-JECT 1 MG/1 ML DISP.SYRIN IVPUSH PRN (19:14)
[2017-02-08] MEDS: ONDANSETRON 4 MG/2 ML VIAL IVPB PRN (19:15)
[2017-02-08] MEDS: ALPRAZolam 2 MG TABLET PO SCH (21:23)
[2017-02-08] MEDS: D5-1/2NS+20 MEQ KCL - 1,000 ML IV SCH (21:26)
[2017-02-08 21:53] VITALS: BMI 25.2
[2017-02-08] MEDS ORDERED: OLANZapine 5 MG TABLET PO SCH (22:00)
[2017-02-08] MEDS ORDERED: CITALOPRAM HYDROBROMIDE 20 MG TABLET (FP) PO SCH (22:00)
[2017-02-08] MEDS ORDERED: CITALOPRAM HYDROBROMIDE 10 MG TABLET (FP) PO SCH (22:00)
[2017-02-08] MEDS: HEPARIN NA (PORCINE) 5,000 UNITS/ML 1ML VIAL SQ SCH (22:07)
[2017-02-09] MEDS: ALBUTEROL SO4 0.083% IH SOL 2.5 MG/3 ML VIAL.NEB. NEB SCH ×3 (00:16→11:05)
[2017-02-09] MEDS: HYDROmorphone HCL CARPU-JECT 1 MG/1 ML DISP.SYRIN IVPUSH PRN ×2 (03:05→08:21)
[2017-02-09 06:06] VITALS: BP 98/61; PULSE 74; TEMP 97.6
[2017-02-09 08:07] LABS: BASOPHIL 0.2 % (0-2.0); EOSINOPHIL 3.3 % (0-4.5); MCH 29.4 pg (25.7-33.7); MCHC 33.7 g/dl (32.0-36.0); MEAN CELL VOLUME 87.2 fl (80-96); MEAN PLT VOLUME 6.4 fl (7.5-11.1); NEUTROPHILS 54.2 % (42.8-82.8); PLATELET COUNT 229 K/MM3 (134-434); RDW 13.4 % (11.6-15.6); WHITE BLOOD COUNT 4.2 K/mm3 (4.0-10.0)
[2017-02-09 08:15] LABS: AMYLASE 48 U/L (25-115); ANION GAP 7 (8-16); BILIRUBIN,TOTAL 0.4 mg/dL (0.2-1.0); CALCIUM 8.3 mg/dL (8.5-10.1); CO2 30 mmol/L (21-32); CREATININE 0.5 mg/dL (0.55-1.02); GLUCOSE,RANDOM 121 mg/dL (74-106); SGOT/AST 49 U/L (15-37); SGPT/ALT 46 U/L (12-78); TOT PROT 5.7 g/dl (6.4-8.2)
[2017-02-09 08:17] LABS: ALK PHOS 92 U/L (45-117); TROPONIN I < 0.02 ng/ml (0.00-0.05)
[2017-02-09] MEDS: ONDANSETRON 4 MG/2 ML VIAL IVPB PRN (08:21)
[2017-02-09] MEDS: D5-1/2NS+20 MEQ KCL - 1,000 ML IV SCH (08:24)
[2017-02-09] MEDS: LIPASE/PROTEASE/AMYLASE 36,000 UNIT CAPSULE PO SCH ×2 (09:01→10:35)
[2017-02-09] MEDS: CITALOPRAM HYDROBROMIDE 20 MG TABLET (FP) PO SCH ×2 (09:01→10:35)
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
[2017-02-09] MEDS: ALPRAZolam 2 MG TABLET PO SCH (10:34)
[2017-02-09] MEDS: HEPARIN NA (PORCINE) 5,000 UNITS/ML 1ML VIAL SQ SCH (10:36)
[2017-02-09] MEDS ORDERED: KETOROLAC TROMETHAMINE 10 MG TABLET PO PRN (11:01)
--- NOTE | 2017-02-09 11:09 | EKG ---
Test Reason : Blood Pressure : / mmHG Vent. Rate : 082 BPM Atrial Rate : 082 BPM P-R Int : 124 ms QRS Dur : 066 ms QT Int : 406 ms P-R-T Axes : 045 018 017 degrees QTc Int : 474 ms NORMAL SINUS RHYTHM NORMAL ECG WHEN COMPARED WITH ECG OF 08-FEB-2017 19:22, NO SIGNIFICANT CHANGE WAS FOUND Confirmed by HALEY CALI MD ([id number]) on 02/09/2017 11:08:39 AM Referred By: Aristides KOENIG Confirmed By:HALEY CALI MD
--- NOTE | 2017-02-09 11:10 | EKG ---
Test Reason : Blood Pressure : / mmHG Vent. Rate : 068 BPM Atrial Rate : 068 BPM P-R Int : 120 ms QRS Dur : 070 ms QT Int : 434 ms P-R-T Axes : 056 045 037 degrees QTc Int : 461 ms NORMAL SINUS RHYTHM NORMAL ECG WHEN COMPARED WITH ECG OF 08-FEB-2017 14:08, NO SIGNIFICANT CHANGE WAS FOUND Confirmed by HALEY CALI MD ([id number]) on 02/09/2017 11:10:03 AM Referred By: Confirmed By:HALEY CALI MD
--- NOTE | 2017-02-09 11:22 | PN ---
Teaching Attending Note Name of Resident: Rahul Up ATTENDING PHYSICIAN STATEMENT I saw and evaluated the patient. I reviewed the resident's note and discussed the case with the resident. I agree with the resident's findings and plan as documented. Please see full GI consultation note.
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
--- NOTE | 2017-02-11 09:50 | EKG ---
Test Reason : Blood Pressure : / mmHG Vent. Rate : 089 BPM Atrial Rate : 089 BPM P-R Int : 118 ms QRS Dur : 062 ms QT Int : 378 ms P-R-T Axes : 050 031 026 degrees QTc Int : 459 ms NORMAL SINUS RHYTHM NORMAL ECG WHEN COMPARED WITH ECG OF 09-MAY-2012 16:13, NO SIGNIFICANT CHANGE WAS FOUND Confirmed by SAMUEL ESCALANTE MD ([id number]) on 02/11/2017 9:50:20 AM Referred By: Confirmed By:SAMUEL ESCALANTE MD
== END 2017-02-09 12:50 | disposition left against medical advice (07) | DRG 389 ==
LOC: JER 13:25 → JERBED 17:08 → J6S 20:58
PROVIDERS: ADMIT Family Medicine; ATTEND Family Medicine
DX: K56.41 Fecal impaction (principal); K86.1 Other chronic pancreatitis; F11.20 Opioid dependence, uncomplicated; I34.1 Nonrheumatic mitral (valve) prolapse; K27.9 Peptic ulcer, site unspecified, unspecified as acute or chronic, without hemorrhage or perforation; D18.03 Hemangioma of intra-abdominal structures; R19.7 Diarrhea, unspecified; J44.9 Chronic obstructive pulmonary disease, unspecified
CPT/HCPCS: 36415; 71010-TC; 71275-TC; 74177-TC; 80053; 82150; 82553; 83690; 83735; 84484; 85025; 85610; 87040; 93005; 93010; 94640; 99285-25; J1644

== ENCOUNTER 2017-09-21 03:25 | Emergency (ER) | payer OTHER, MEDICARE ==
[2017-09-21 03:34] VITALS: BMI 25.4
[2017-09-21] MEDS ORDERED: SODIUM CHLORIDE 1,000 ML IV STA ×2 (03:41→03:42)
[2017-09-21] MEDS ORDERED: ONDANSETRON 4 MG/2 ML VIAL IVPUSH STA ×2 (03:41→05:34)
[2017-09-21] MEDS ORDERED: HYDROmorphone HCL CARPU-JECT 1 MG/1 ML DISP.SYRIN IVPUSH ONE (03:41)
[2017-09-21] MEDS ORDERED: PANTOPRAZOLE SODIUM 40 MG in SODIUM CHLORIDE 100 ML IVPB ONE (03:42)
--- NOTE | 2017-09-21 03:42 | PDOC ---
History of Present Illness - General History Source: Patient <AdalidAiden - Last Filed: 09/21/17 03:39> - General History Source: Patient Exam Limitations: No Limitations - History of Present Illness Initial Comments: 09/21/17 03:47 The patient is a 62 year old female with a significant PMH of chronic pancreatitis who presents to the emergency department with nausea, vomiting, and diarrhea beginning approximately 3 days ago. The patient reports she has been unable to tolerate PO secondary to her vomiting and diarrhea. She also notes decreased urine production over the past 3 days. The patient states her symptoms today feel very similar to her acute pancreatitis episodes of the past. The patient denies fevers or chills. The patient denies chest pain, shortness of breath, headache and dizziness. Denies dysuria, frequency, urgency and hematuria. Allergies: Morphine, Sulfonamide antibiotics. Past surgical history: Cholecystectomy. Social history: No reported cigarette, alcohol, or drug use. PCP: Dr. Smith GI: Dr. Dejesus Hand Stapler: Dr. Nunez <Eric Sandy - Last Filed: 09/21/17 03:47> <Jones Brennan - Last Filed: 09/21/17 09:10> - General Chief Complaint: Vomiting/Diarrhea Stated Complaint: NAUSEA/DIARRHEA Time Seen by Provider: 09/21/17 03:35 Past History - Past Medical History Anemia: No Asthma: No Cancer: No Cardiac Disorders: Yes (mv prolapse) CVA: No COPD: No CHF: No Dementia: No Diabetes: Yes GI Disorders: Yes (pancreatic divisum, pancreatitis) Disorders: No HTN: No Hypercholesterolemia: Yes Liver Disease: No Psychiatric Problems: Yes (ANXIETY) Seizures: No Thyroid Disease: No - Surgical History Abdominal Surgery: Yes (LAP ENDOMETRIOSIS, Pancreatic Surgery ) Appendectomy: No Cardiac Surgery: No Cholecystectomy: Yes Lung Surgery: No Neurologic Surgery: No Orthopedic Surgery: Yes (LAMENECTOMY 2004) - Immunization History Immunization Up to Date: No - Suicide/Smoking/Psychosocial Hx Smoking Status: No Smoking History: Unknown if ever smoked Have you smoked in the past 12 months: No Number of Cigarettes Smoked Daily: 0 Information on smoking cessation initiated: No 'Breaking Loose' booklet given: 04/15/13 Hx Alcohol Use: No Drug/Substance Use Hx: No Substance Use Type: None Hx Substance Use Treatment: No <Aiden Whitehead - Last Filed: 09/21/17 03:39> <Eric Sandy - Last Filed: 09/21/17 03:47> <Jones Brennan - Last Filed: 09/21/17 09:10> - Past Medical History Allergies/Adverse Reactions: Allergies Allergy/AdvReac Type Severity Reaction Status Date / Time ketorolac [From Toradol] Allergy Verified 09/21/17 03:44 morphine Allergy Itching Verified 09/21/17 03:28 Sulfa (Sulfonamide Allergy Verified 09/21/17 03:28 Antibiotics) Home Medications: Ambulatory Orders Alprazolam [Xanax] 1 mg PO BID 09/21/17 Citalopram Hydrobromide [Celexa -] 10 mg PO HS 09/21/17 Citalopram Hydrobromide [Celexa -] 20 mg PO DAILY 09/21/17 Hydrocodone/Acetaminophen [Hydrocodone-Acetamin 10-300 mg] 1 each PO TID Lipase/Protease/Amylase [Creon Dr 24,000 Units Capsule] 1 each PO DAILY Olanzapine [Zyprexa] 5 mg PO HS 09/21/17 Omeprazole Magnesium [Prilosec Otc] 20 mg PO DAILY 09/21/17 Pregabalin [Lyrica] 100 mg PO DAILY 09/21/17 Review of Systems - Review of Systems Able to Perform ROS?: Yes Comments:: 09/21/17 03:47 CONSTITUTIONAL: (+) Decreased appetite Absent: fever, chills, diaphoresis, generalized weakness, malaise HEENT: Absent: rhinorrhea, nasal congestion, throat pain, throat swelling, difficulty swallowing, mouth swelling, ear pain, eye pain, visual Changes CARDIOVASCULAR: Absent: chest pain, syncope, palpitations, irregular heart rate, lightheadedness , peripheral edema RESPIRATORY: Absent: cough, shortness of breath, dyspnea with exertion, orthopnea, wheezing, stridor, hemoptysis GASTROINTESTINAL: (+) Nausea (+) Vomiting (+) Diarrhea. Absent: abdominal pain, abdominal distension, constipation, melena, hematochezia GENITOURINARY: Absent: dysuria, frequency, urgency, hesitancy, hematuria, flank pain, genital pain MUSCULOSKELETAL: Absent: myalgia, arthralgia, joint swelling SKIN: Absent: rash, itching, pallor HEMATOLOGIC/IMMUNOLOGIC: Absent: easy bleeding, easy bruising, lymphadenopathy, frequent infections ENDOCRINE: Absent: unexplained weight gain, unexplained weight loss, heat intolerance, cold intolerance NEUROLOGIC: Absent: headache, focal weakness or paresthesias, dizziness, unsteady gait, seizure, mental status changes, bladder or bowel incontinence PSYCHIATRIC: Absent: anxiety, depression, suicidal or homicidal ideation, hallucinations. <Eric Sandy - Last Filed: 09/21/17 03:47> *Physical Exam - Vital Signs Last Vital Signs Temp Pulse Resp BP Pulse Ox 97.9 F 74 20 127/71 98 09/21/17 03:28 09/21/17 03:28 09/21/17 03:28 09/21/17 03:28 09/21/17 03:28 <Aiden Whitehead - Last Filed: 09/21/17 03:39> - Vital Signs Last Vital Signs Temp Pulse Resp BP Pulse Ox 97.9 F 74 20 127/71 98 09/21/17 03:28 09/21/17 03:28 09/21/17 03:28 09/21/17 03:28 09/21/17 03:28 - Physical Exam Comments: 09/21/17 03:47 GENERAL: (+) Mild distress. Well developed, well nourished. Awake and alert. HEENT: (+) Dry mucosa. Normocephalic, atraumatic. PERRLA, EOMI. No conjunctival pallor. Sclera are non- icteric. Oropharynx is clear. NECK: Supple. Full ROM. No JVD. Carotid pulses 2+ and symmetric, without bruits. No thyromegaly. No lymphadenopathy. CARDIOVASCULAR: (+) Slightly tachycardic. Regular rhythm. No murmurs, rubs, or gallops. Distal pulses are 2+ and symmetric. PULMONARY: No evidence of respiratory distress. Lungs clear to auscultation bilaterally. No wheezing, rales or rhonchi. ABDOMINAL: (+) Moderate epigastric tenderness. Soft. Non-distended. No rebound or guarding. No organomegaly. Normoactive bowel sounds. MUSCULOSKELETAL Normal range of motion at all joints. No bony deformities or tenderness. No CVA tenderness. EXTREMITIES: No cyanosis. No clubbing. No edema. No calf tenderness. SKIN: Warm and dry. Normal capillary refill. No rashes. No jaundice. NEUROLOGICAL: Alert, awake, appropriate. Cranial nerves 2-12 intact. No deficits to light touch and temperature in face, upper extremities and lower extremities. No motor deficits in the in face, upper extremities and lower extremities. Normoreflexic in the upper and lower extremities. Normal speech. Toes are downgoing bilaterally. Gait is normal without ataxia. <Eric Sandy - Last Filed: 09/21/17 03:47> - Vital Signs Last Vital Signs Temp Pulse Resp BP Pulse Ox 97.6 F 71 18 119/79 97 09/21/17 07:15 09/21/17 07:15 09/21/17 07:15 09/21/17 07:15 09/21/17 07:15 <Jones Brennan - Last Filed: 09/21/17 09:10> ED Treatment Course - LABORATORY CBC & Chemistry Diagram: 09/21/17 02:45 09/21/17 02:45 - ADDITIONAL ORDERS Additional order review: Laboratory Results 09/21/17 09/21/17 09/21/17 06:00 02:45 02:45 PT with INR 12.00 INR 1.06 Sodium 146 H Potassium 3.8 Chloride 112 H Carbon Dioxide 27 Anion Gap 7 L BUN 27 H Creatinine 0.9 Creat Clearance w eGFR > 60 Random Glucose 135 H Calcium 8.5 Magnesium 2.1 Total Bilirubin 0.2 D AST 53 H ALT 57 Alkaline Phosphatase 78 Creatine Kinase 64 Troponin I < 0.02 B-Natriuretic Peptide 18.39 Total Protein 6.7 Albumin 3.6 Lipase 231 Urine Color Straw Urine Appearance Clear Urine pH 6.0 Ur Specific [place] 1.054 H Urine Protein Negative Urine Glucose (UA) Negative Urine Ketones Negative Urine Blood Negative Urine Nitrite Negative Urine Bilirubin Negative Urine Urobilinogen Negative Ur Leukocyte Esterase 2+ H Urine WBC (Auto) 6 Urine RBC (Auto) 2 Ur Epithelial Cells Rare 09/21/17 02:45 RBC 4.28 MCV 87.4 MCHC 33.8 RDW 13.8 MPV 6.5 L Neutrophils % 57.5 Lymphocytes % 27.8 Monocytes % 10.9 H Eosinophils % 3.1 Basophils % 0.7 D - Medications Given in the ED: ED Medications Discontinued Medications Generic Name Dose Route Start Last Admin Trade Name Freq PRN Reason Stop Dose Admin Hydromorphone HCl 1 mg 09/21/17 03:41 09/21/17 04:12 Dilaudid Injection - IVPUSH 09/21/17 03:42 Not Given ONCE ONE Hydromorphone HCl 2 mg 09/21/17 03:58 09/21/17 04:10 Dilaudid - PO 09/21/17 03:59 2 mg ONCE ONE Administration Hydromorphone HCl 2 mg 09/21/17 05:34 09/21/17 05:39 Dilaudid - PO 09/21/17 05:35 2 mg ONCE ONE Administration Sodium Chloride 1,000 mls @ 1,000 mls/hr 09/21/17 03:41 09/21/17 04:02 Normal Saline - IV 09/21/17 04:40 1,000 mls/hr ASDIR STA Administration Sodium Chloride 1,000 mls @ 1,000 mls/hr 09/21/17 03:42 09/21/17 06:19 Normal Saline - IV 09/21/17 04:41 1,000 mls/hr ASDIR STA Administration Pantoprazole Sodium 40 mg/ 100 mls @ 200 mls/hr 09/21/17 03:42 09/21/17 04:10 Sodium Chloride IVPB 09/21/17 04:11 200 mls/hr ONCE ONE Administration Ondansetron HCl 4 mg 09/21/17 03:41 09/21/17 04:02 Zofran Injection IVPUSH 09/21/17 03:42 4 mg ONCE STA Administration Ondansetron HCl 4 mg 09/21/17 05:34 09/21/17 05:39 Zofran Injection IVPUSH 09/21/17 05:35 4 mg ONCE STA Administration <Jones Brennan - Last Filed: 09/21/17 09:10> Medical Decision Making - Medical Decision Making 09/21/17 09:00 pt endorsed to me by Dr. Jacobs. pt is a 62 y/o female with hx/.o chronic pancreatitis who presented with abd pain, n/v/d. pt is currently resting comfortbaly, bennie po, wants to be released. cbc/cmp/lipase-wnl. ct of abd- pelvis shows no evidence of acute pancreatitis. mildlly thickened gastric wall is noted-gastritis?). will d/c with gi f/u. <Jones Brennan - Last Filed: 09/21/17 09:10> *DC/Admit/Observation/Transfer <Aiden Whitehead - Last Filed: 09/21/17 03:39> - Attestations Scribe Attestion: 09/21/17 03:48 Documentation prepared by Eric Sandy, acting as medical cost consultant for Aiden Whitehead DO. <Eric Sandy - Last Filed: 09/21/17 03:47> <Jones Brennan - Last Filed: 09/21/17 09:10> Diagnosis at time of Disposition: Abdominal pain Qualifiers: Abdominal location: unspecified location Qualified Code(s): R10.9 - Unspecified abdominal pain Nausea & vomiting Qualifiers: Vomiting type: unspecified Vomiting Intractability: non-intractable Qualified Code(s): R11.2 - Nausea with vomiting, unspecified - Discharge Dispostion Disposition: HOME Condition at time of disposition: Stable - Referrals Referrals: Bandar Dejesus MD [Staff Physician] - - Patient Instructions Printed Discharge Instructions: DI for Abdominal Pain-Adult
[2017-09-21] MEDS ORDERED: PANTOPRAZOLE SODIUM 40 MG VIAL ONE (03:56)
[2017-09-21] MEDS ORDERED: ONDANSETRON 4 MG/2 ML VIAL ONE ×2 (03:56→05:36)
[2017-09-21] MEDS ORDERED: HYDROmorphone HCL 2 MG TABLET PO ONE ×2 (03:58→05:34)
[2017-09-21 04:00] LABS: BASO % 0.7 % (0-2.0); EOS % 3.1 % (0-4.5); HEMATOCRIT 37.4 % (32.4-45.2); HEMOGLOBIN 12.7 GM/dL (10.7-15.3); LYMPH % 27.8 % (8-40); MCH 29.6 pg (25.7-33.7); MCHC 33.8 g/dl (32.0-36.0); MEAN CELL VOLUME 87.4 fl (80-96); MEAN PLT VOLUME 6.5 fl (7.5-11.1); MONO % 10.9 % (3.8-10.2); NEUT % 57.5 % (42.8-82.8); PLATELET COUNT 240 K/MM3 (134-434); RBC 4.28 M/mm3 (3.60-5.2); RDW 13.8 % (11.6-15.6); WHITE BLOOD COUNT 4.9 K/mm3 (4.0-10.0)
[2017-09-21] MEDS ORDERED: HYDROmorphone HCL 2 MG TABLET ONE ×2 (04:03→05:36)
[2017-09-21 04:11] LABS: INR 1.06 (0.82-1.09)
[2017-09-21 04:22] LABS: ALBUMIN 3.6 g/dl (3.4-5.0); ANION GAP 7 (8-16); BILIRUBIN,TOTAL 0.2 mg/dL (0.2-1.0); BLOOD UREA NITROGEN 27 mg/dL (7-18); CALCIUM 8.5 mg/dL (8.5-10.1); CHLORIDE 112 mmol/L (98-107); CO2 27 mmol/L (21-32); CREATININE 0.9 mg/dL (0.55-1.02); GLUCOSE,RANDOM 135 mg/dL (74-106); MAGNESIUM 2.1 mg/dL (1.8-2.4); POTASSIUM 3.8 mmol/L (3.5-5.1); SGOT/AST 53 U/L (15-37); SGPT/ALT 57 U/L (12-78); SODIUM 146 mmol/L (136-145); TOT PROT 6.7 g/dl (6.4-8.2)
[2017-09-21 04:25] LABS: ALK PHOS 78 U/L (45-117); N-TERMINAL BNP 18.39 pg/ml (5-125)
[2017-09-21 04:44] LABS: LIPASE 231 U/L (73-393)
[2017-09-21 06:39] LABS: URINE APPEARANCE CLEAR; URINE BILIRUBIN NEGATIVE (<2.0 mg/dL); URINE BLOOD NEGATIVE (NEGATIVE); URINE COLOR STRAW; URINE GLUCOSE (UA) NEGATIVE (NEGATIVE); URINE KETONE NEGATIVE (NEGATIVE); URINE NITRITE NEGATIVE (NEGATIVE); URINE PROTEIN NEGATIVE (NEGATIVE); URINE UROBILINOGEN NEGATIVE mg/dL (0.2-1.0)
[2017-09-21 06:55] LABS: URINE LEUK ESTERASE 2+ (NEGATIVE)
[2017-09-21 07:02] LABS: EPI CELLS RARE /HPF (FEW)
[2017-09-21 08:18] VITALS: BP 119/79; PULSE 71; TEMP 97.6
--- NOTE | 2017-09-21 12:04 | EKG ---
Test Reason : Blood Pressure : / mmHG Vent. Rate : 070 BPM Atrial Rate : 070 BPM P-R Int : 118 ms QRS Dur : 066 ms QT Int : 422 ms P-R-T Axes : 054 062 051 degrees QTc Int : 455 ms NORMAL SINUS RHYTHM NORMAL ECG WHEN COMPARED WITH ECG OF 09-FEB-2017 09:12, NO SIGNIFICANT CHANGE WAS FOUND Confirmed by HALEY CALI MD ([id number]) on 09/21/2017 12:04:08 PM Referred By: Confirmed By:HALEY CALI MD
== END 2017-09-21 09:39 | disposition home or self-care (01) ==
LOC: JER 03:25
PROC: 3E033GC Introduction of Other Therapeutic Substance into Peripheral Vein, Percutaneous Approach (ICD-10-PCS; principal; 2017-09-21)
PROC: 3E0337Z Introduction of Electrolytic and Water Balance Substance into Peripheral Vein, Percutaneous Approach (ICD-10-PCS; 2017-09-21)
DX: R11.2 Nausea with vomiting, unspecified (principal); R10.9 Unspecified abdominal pain; F32.9 Major depressive disorder, single episode, unspecified; E11.9 Type 2 diabetes mellitus without complications
CPT/HCPCS: 36415; 71045-TC-FY; 74177-TC; 80053; 81003; 81015; 82550; 83690; 83735; 83880; 84484; 85025; 85610; 87040; 87086; 93005; 93010; 99284-25; J7030

== ENCOUNTER 2017-12-14 06:58 | Day surgery (SDC) | payer OTHER, MEDICARE ==
[2017-12-14] MEDS ORDERED: LIDOCAINE HCL 2% (20ML MULTI-DOSE VIAL) NR ONE (07:50)
[2017-12-14] MEDS ORDERED: PROPOFOL 20 ML ONE ×4 (07:50)
[2017-12-14 07:59] VITALS: BMI 22.3
[2017-12-14 10:25] VITALS: BP 124/59; PULSE 54; TEMP 98.8
--- NOTE | 2017-12-15 19:30 | PATH ---
Surgical Pathology Report Patient Name: KINGA MADRIGAL [facility]. Rec. #: [id number] /Age/Gender: 1955 (Age: 62) / F Account: [id number] Location: [facility]-ENDOSCOPY Taken: 12/14/2017 Received: 12/14/2017 Reported: 12/15/2017 Physicians: Bandar Dejesus M.D. Specimen(s) Received A: BX 2ND PORTION DUODENUM AND BULB B: BX DUODENAL POLYP C: BX OF FUNDUS POLYP D: BX GASTRIC ANTRUM E: BX GASTRIC BODY F: RECTAL POLYP G: BX CECAL POLYP H: POLYP SIGMOID Clinical History Abnormal CT scan, screening colonoscopy Postoperative diagnosis: Duodenal polyp, gastric fundus polyp, hypertrophic gastropathy, rectal and sigmoid polyps, diverticulosis Final Diagnosis A. SECOND PORTION DUODENUM AND BULB, BIOPSY: DUODENAL MUCOSA WITH MILD CHRONIC DUODENITIS. B. DUODENAL POLYP, BIOPSY: DUODENAL MUCOSA WITH CHRONIC DUODENITIS AND FOCAL DILATED GLANDS. C. GASTRIC FUNDUS POLYP, BIOPSY: FUNDIC GLAND POLYP. SPECIAL STAIN DIFF-QUIK IS NEGATIVE FOR H. PYLORI ORGANISMS. D. GASTRIC ANTRUM, BIOPSY: GASTRIC MUCOSA WITH MILD CHRONIC GASTRITIS. SPECIAL STAIN DIFF-QUIK IS NEGATIVE FOR H. PYLORI ORGANISMS. E. GASTRIC BODY, BIOPSY: GASTRIC MUCOSA WITH NO DIAGNOSTIC ABNORMALITIES. SPECIAL STAIN DIFF-QUIK IS NEGATIVE FOR H. PYLORI ORGANISMS. F. RECTAL POLYP, BIOPSY: CONSISTENT WITH INFLAMMATORY POLYP. G. CECAL POLYP, BIOPSY: COLONIC MUCOSA WITH MILD CHRONIC INFLAMMATION. H. SIGMOID POLYP, POLYPECTOMY: HYPERPLASTIC POLYP. Electronically Signed Bj Rodriguez M.D. Gross Description A. Received in formalin, labeled "biopsy second portion of duodenum and bulb" are 3 pantoja, irregular portions of soft tissue ranging from 0.3-0.4 cm. in greatest dimension. The specimens are submitted in toto in one cassette. B. Received in formalin, labeled "biopsy duodenal polyp" are 3 pantoja, irregular portions of soft tissue ranging from 0.3-0.5 cm. in greatest dimension. The specimens are submitted in toto in one cassette. C. Received in formalin, labeled "biopsy gastric fundus polyp" are 5 pantoja, irregular portions of soft tissue ranging from 0.2-0.4 cm. in greatest dimension. The specimens are submitted in toto in one cassette. D. Received in formalin, labeled "biopsy gastric antrum" are 4 pantoja, irregular portions of soft tissue ranging from 0.2-0.6 cm. in greatest dimension. The specimens are submitted in toto in one cassette. E. Received in formalin, labeled "biopsy gastric body rugae" are 3 pantoja, irregular portions of soft tissue ranging from 0.2-0.5 cm. in greatest dimension. The specimens are submitted in toto in one cassette. F. Received in formalin, labeled "polyp from rectum" is a pantoja, irregular portion of soft tissue measuring 0.4 cm. in greatest dimension. The specimen is submitted in toto in one cassette. G. Received in formalin, labeled "biopsy cecal polyp" is a pantoja, irregular portion of soft tissue measuring 0.5 cm. in greatest dimension. The specimen is submitted in toto in one cassette. H. Received in formalin, labeled "polyp from sigmoid" is a pantoja, irregular portion of soft tissue measuring 0.5 cm. in greatest dimension. The specimen is submitted in toto in one cassette. 12/14/2017 [facility]12/14/2017
== END 2017-12-14 10:30 | disposition home or self-care (01) ==
LOC: JASU-ENDO 06:58
PROVIDERS: ATTEND Internal Medicine Gastroenterology
PROC: 0DBN8ZX Excision of Sigmoid Colon, Via Natural or Artificial Opening Endoscopic, Diagnostic (ICD-10-PCS; 2017-12-14)
PROC: 0DBH8ZX Excision of Cecum, Via Natural or Artificial Opening Endoscopic, Diagnostic (ICD-10-PCS; 2017-12-14)
PROC: 0DB98ZX Excision of Duodenum, Via Natural or Artificial Opening Endoscopic, Diagnostic (ICD-10-PCS; 2017-12-14)
PROC: 0DB68ZX Excision of Stomach, Via Natural or Artificial Opening Endoscopic, Diagnostic (ICD-10-PCS; 2017-12-14)
PROC: 0DBP8ZX Excision of Rectum, Via Natural or Artificial Opening Endoscopic, Diagnostic (ICD-10-PCS; principal; 2017-12-14 08:00)
DX: Z12.11 Encounter for screening for malignant neoplasm of colon (principal); K62.1 Rectal polyp; D12.0 Benign neoplasm of cecum; D12.5 Benign neoplasm of sigmoid colon; K57.30 Diverticulosis of large intestine without perforation or abscess without bleeding; K31.7 Polyp of stomach and duodenum; K29.70 Gastritis, unspecified, without bleeding
CPT/HCPCS: 82962; 88305-TC; 88313-TC

== ENCOUNTER 2018-03-14 23:41 | Inpatient (IN) | payer OTHER, MEDICARE ==
--- NOTE | 2018-03-15 00:01 | PDOC ---
History of Present Illness - General Stated Complaint: ABDOMINAL PAIN, NAUSEA, SOB Time Seen by Provider: 03/14/18 23:55 - History of Present Illness Initial Comments: 03/14/18 23:58 62 yo F with h/o DM, Anixety, Depression, PUD, chronic pancreatitis who p/w abdominal pain. Patient reports 1 week of worsening, sharp, spasmodic epigastric pain, worse with PO intake. Also endorses decreased PO intake, and nausea without vomiting. Decreased bowel movements. Symptoms not improved with OTC Hydrocodone, and Zofran. Pain consistent with pancreatitis in past. Chronic pancreatitis related to pancreas divisum, which failed stenting, and a puestow partial pancreaectomy (1997), with 2 revisions, and multiple celiac axis blocks. [address] Sena at [facility]. Patient denies F,C, CP, Palpitations, SOB, urinary complaints, hematuria, BPR, diarrhea, constipation, lightheadedness, weakness, sensory changes. PMHx: as noted above Surgical: Cholecystectomy (1989), appendectomy, R sided oophorectomy ROS: as noted SHx: Denies Etoh, IVDA, Tobacco use. Allergies: Morphine, Sulfonamide antibiotics. PCP: Dr. Smith GI: Dr. Dejesus Laminated Plastics Assembler And Gluer: Dr. Nunez Past History - Past Medical History Allergies/Adverse Reactions: Allergies Allergy/AdvReac Type Severity Reaction Status Date / Time ketorolac [From Toradol] Allergy Verified 03/15/18 01:12 morphine Allergy Itching Verified 03/15/18 01:12 Sulfa (Sulfonamide Allergy Verified 03/15/18 01:12 Antibiotics) Home Medications: Ambulatory Orders Alprazolam [Xanax] 1 mg PO BID 09/21/17 Citalopram Hydrobromide [Celexa -] 40 mg PO DAILY 09/21/17 Hydrocodone/Acetaminophen [Hydrocodone-Acetamin 10-300 mg] 1 each PO BID PRN Lipase/Protease/Amylase [Reji Torres 24,000 Units Capsule] 1 each PO DAILY Pregabalin [Lyrica] 100 mg PO DAILY 09/21/17 Cholecalciferol (Vitamin D3) [Vitamin D -] 1,000 unit PO DAILY 12/14/17 Ondansetron HCl [Zofran] 4 mg PO DAILY PRN 12/14/17 Polyethylene Glycol 3350 [Miralax 119 gm Btl -] 17 gm PO DAILY PRN 12/14/17 Ranitidine [Zantac -] 150 mg PO DAILY 12/14/17 Rosuvastatin Calcium 10 mg PO DAILY 12/14/17 Anemia: No Asthma: No Cancer: No Cardiac Disorders: Yes (MVP) CVA: No COPD: No CHF: No Dementia: No Diabetes: Yes GI Disorders: Yes Disorders: No HTN: No Hypercholesterolemia: Yes (HYPERLIPIDEMIA) Liver Disease: Yes (LIVER HEMANGIOMA) Psychiatric Problems: Yes (ANXIETY) Seizures: No Thyroid Disease: Yes (HYPOTHYROIDISM W/ THYROID NODULE,HIATAL HERNIA,GASTRITIS, IBS) - Surgical History Abdominal Surgery: Yes (LAP ENDOMETRIOSIS, Pancreatic Surgery ) Appendectomy: No Cardiac Surgery: No Cholecystectomy: Yes (OPEN) Lung Surgery: No Neurologic Surgery: No Orthopedic Surgery: Yes (LAMENECTOMY 2004) - Immunization History Immunization Up to Date: No - Suicide/Smoking/Psychosocial Hx Smoking Status: No Smoking History: Never smoked Have you smoked in the past 12 months: No Number of Cigarettes Smoked Daily: 0 'Breaking Loose' booklet given: 04/15/13 Hx Alcohol Use: No Drug/Substance Use Hx: No Substance Use Type: None Hx Substance Use Treatment: No Review of Systems - Review of Systems Comments:: 03/14/18 23:59 GENERAL/CONSTITUTIONAL: No fever or chills. No weakness. HEAD, EYES, EARS, NOSE AND THROAT: No change in vision. No ear pain or discharge. No sore throat. CARDIOVASCULAR: No chest pain or shortness of breath RESPIRATORY: No cough, wheezing, or hemoptysis. GASTROINTESTINAL:+ Abdominal pain, nausea. No diarrhea or constipation. GENITOURINARY: No dysuria, frequency, or change in urination. MUSCULOSKELETAL: No joint or muscle swelling or pain. No neck or back pain. SKIN: No rash NEUROLOGIC: No headache, vertigo, loss of consciousness, or change in strength/ sensation. ENDOCRINE: No increased thirst. No abnormal weight change HEMATOLOGIC/LYMPHATIC: No anemia, easy bleeding, or history of blood clots. ALLERGIC/IMMUNOLOGIC: No hives or skin allergy. = *Physical Exam - Physical Exam Comments: 03/14/18 23:59 GENERAL: Awake, alert, and fully oriented, in no acute distress HEAD: No signs of trauma, normocephalic, atraumatic EYES: PERRLA, EOMI, sclera anicteric, conjunctiva clear ENT: + Dry mucous membranes. Hearing grossly normal, nares patent, oropharynx clear without exudates. NECK: Normal ROM, supple, no lymphadenopathy, JVD, or masses LUNGS: No distress, speaks full sentences, clear to auscultation bilaterally HEART: Regular rate and rhythm, normal S1 and S2, no murmurs, rubs or gallops, peripheral pulses normal and equal bilaterally. ABDOMEN: + Epigastric ttp. Soft, normoactive bowel sounds. No guarding, no rebound. No masses EXTREMITIES : Normal inspection, Normal range of motion, no edema. No clubbing or cyanosis. SKIN: Warm, Dry, normal turgor, no rashes or lesions noted ED Treatment Course - LABORATORY CBC & Chemistry Diagram: 03/15/18 02:10 03/15/18 02:10 Medical Decision Making - Medical Decision Making 03/15/18 01:14 62 yo F with h/o DM, Anixety, Depression, PUD, chronic pancreatitis who p/w abdominal pain. ACS/TN r/o. + epigatsirc ttp. Differential includes pancreatitis , gastritis, biliary dz. Low suspicion AAA, Ao dissection, mesenteric ischemia. Ed Course: CBC,CMP, Lipase, EKG Famotidine, Zofran, NS 03/15/18 01:18 EKG: NSR with absent KATE, STD, TWI. Normal axis and interval duration. Rate 60 BPM. 03/15/18 04:08 CBC,CMP: Unremarkable 03/15/18 06:[address] to [address] Smith for intractable abdominal pain, nausea and vomiting. Called Dr. Smith answering service. Awaiting call back. *DC/Admit/Observation/Transfer Diagnosis at time of Disposition: Abdominal pain, chronic, epigastric - Discharge Dispostion Condition at time of disposition: Stable Decision to Admit order: Yes - Referrals Referrals: Joellen Smith MD [Primary Care Provider] - - Patient Instructions Printed Discharge Instructions: DI for Abdominal Pain-Adult Additional Instructions: Please return to the emergency department with any new or worsening symptoms or concerns. Please follow up with your primary care physician within 72 hours. - Post Discharge Activity - Attestations Physician Attestion: 03/15/18 00:00 I attest to the information provided in this note.
[2018-03-15] MEDS ORDERED: SODIUM CHLORIDE 1,000 ML IV STA (01:08)
[2018-03-15] MEDS ORDERED: ONDANSETRON 4 MG/2 ML VIAL IVPUSH ONE ×3 (01:08→08:27)
[2018-03-15] MEDS ORDERED: FAMOTIDINE 20 MG/50 ML IVPB 20 MG/50 ML MG IVPB ONE ×2 (01:10→02:08)
--- NOTE | 2018-03-15 01:47 | PDOC ---
Attending Attestation - HPI HPI: 03/15/18 03:39 The patient is a 62 year old femal with a significant past medical history of DM, Anixety, Depression, PUD, chronic pancreatitis who presents to the ED with abdominal pain for 1 week. the patient reports that her abdominal pain has been worsening, sharp, spasmodic and worse with PO intake. she reports having decreased PO intake, and nausea without vomiting. she also reports decreased bowel movements. the patient reports that her pain is pain consistent with pancreatitis in past. The patient denies any other symptoms. or complaints. Documentation prepared by Elieser Pinto, acting as medical laboratory technician for Elsa Ford MD. <Elieser Pinto - Last Filed: 03/15/18 03:39> - Resident Resident Name: Scott Marsh - ED Attending Attestation I have performed the following: I have examined & evaluated the patient, The case was reviewed & discussed with the resident, I agree w/resident's findings & plan, Exceptions are as noted - Physicial Exam PE: 03/16/18 05:47 GENERAL: Awake, alert, and fully oriented, in no acute distress, repeatedly approaching the nurses station for pain medications HEAD: No signs of trauma, normocephalic EYES: PERRLA, EOMI, sclera anicteric, conjunctiva clear LUNGS: No distress, speaks full sentences, clear to auscultation bilaterally HEART: Regular rate and rhythm, normal S1 and S2, no murmurs, rubs or gallops, peripheral pulses normal and equal bilaterally. ABDOMEN: + Epigastric ttp. Soft, normoactive bowel sounds. No guarding, no rebound. EXTREMITIES : Normal inspection, Normal range of motion SKIN: Warm, Dry, normal turgor, no rashes or lesions noted - Medical Decision Making 03/16/18 05:48 Laboratory Tests 03/15/18 03/15/18 03/15/18 02:10 02:10 02:10 WBC 6.5 Hgb 15.6 H Hct 46.8 H D Plt Count 234 BUN 14 Creatinine 0.6 AST 34 ALT 41 Lipase 149 Pt has required multiple rounds of narcotic pain medications Unclear if this is related to pt pancreatitis vs. IBS Will place on observation as pt is saying she does not feel that medications have helped her Clinical Impression: abdominal pain, initial presentation <Elsa Ford - Last Filed: 03/16/18 05:50>
[2018-03-15] MEDS ORDERED: ONDANSETRON 4 MG/2 ML VIAL ONE ×4 (02:08→13:29)
[2018-03-15] MEDS ORDERED: ACETAMINOPHEN 1000 MG/100 ML VIAL (NON FORMULARY) IVPB ONE (02:32)
[2018-03-15] MEDS ORDERED: ACETAMINOPHEN INJECTION 100 ML IVPB ONE (02:41)
[2018-03-15 03:02] LABS: BASO % 0.6 % (0-2.0); EOS % 1.3 % (0-4.5); HEMATOCRIT 46.8 % (32.4-45.2); HEMOGLOBIN 15.6 GM/dL (10.7-15.3); LYMPH % 27.2 % (8-40); MCH 29.5 pg (25.7-33.7); MCHC 33.3 g/dl (32.0-36.0); MEAN CELL VOLUME 88.5 fl (80-96); MEAN PLT VOLUME 7.5 fl (7.5-11.1); NEUT % 61.9 % (42.8-82.8); PLATELET COUNT 234 K/MM3 (134-434); RBC 5.29 M/mm3 (3.60-5.2); RDW 14.1 % (11.6-15.6); WHITE BLOOD COUNT 6.5 K/mm3 (4.0-10.0)
[2018-03-15 03:25] LABS: LIPASE 149 U/L (73-393); TRIGLYCERIDES 59 mg/dL (0-150)
[2018-03-15 04:06] LABS: ALBUMIN 4.4 g/dl (3.4-5.0); ALK PHOS 93 U/L (45-117); ANION GAP 7 MMOL/L (8-16); BILIRUBIN,TOTAL 1.3 mg/dL (0.2-1); BLOOD UREA NITROGEN 14 mg/dL (7-18); CALCIUM 9.7 mg/dL (8.5-10.1); CHLORIDE 95 mmol/L (98-107); CO2 30 mmol/L (21-32); CREATININE 0.6 mg/dL (0.55-1.3); GLUCOSE,RANDOM 84 mg/dL (74-106); POTASSIUM 4.5 mmol/L (3.5-5.1); SGOT/AST 34 U/L (15-37); SGPT/ALT 41 U/L (13-61); SODIUM 132 mmol/L (136-145)
[2018-03-15] MEDS ORDERED: HYDROmorphone HCL CARPU-JECT 2 MG/1 ML DISP.SYRIN IVPB ONE ×2 (04:16→08:28)
[2018-03-15] MEDS ORDERED: HYDROmorphone HCl 2 MG/ML VIAL ONE ×2 (04:29→08:33)
[2018-03-15] MEDS ORDERED: PANTOPRAZOLE SODIUM 40 MG VIAL IVPUSH ONE (08:55)
[2018-03-15] MEDS ORDERED: SUCRALFATE 1 GM TABLET (FP) PO ONE (08:55)
[2018-03-15] MEDS ORDERED: SODIUM CHLORIDE 0.9% 1000 ML INFUS.BAG IV ONE (08:58)
--- NOTE | 2018-03-15 09:00 | PDOC ---
*Physical Exam - Vital Signs Last Vital Signs Temp Pulse Resp BP Pulse Ox 98.1 F 56 L 17 106/56 L 99 03/15/18 06:00 03/15/18 07:39 03/15/18 07:39 03/15/18 07:39 03/15/18 07:39 - Physical Exam Comments: 03/15/18 08:56 gen: aaox3, uncomfortable, holding her stomach heart: +s1s2 reg Lungs: cta b/l abd: soft, mild diffusely ttp, no rebound or guarding ext: no c/c/e ED Treatment Course - LABORATORY CBC & Chemistry Diagram: 03/15/18 02:10 03/15/18 02:10 - ADDITIONAL ORDERS Additional order review: Laboratory Results 03/15/18 03/15/18 02:10 02:10 Sodium 132 L Potassium 4.5 Chloride 95 L Carbon Dioxide 30 Anion Gap 7 L BUN 14 Creatinine 0.6 Creat Clearance w eGFR > 60 Random Glucose 84 Calcium 9.7 Total Bilirubin 1.3 H AST 34 ALT 41 Alkaline Phosphatase 93 Total Protein 8.0 Albumin 4.4 Triglycerides 59 Lipase 149 03/15/18 02:10 RBC 5.29 H MCV 88.5 MCHC 33.3 RDW 14.1 MPV 7.5 D Neutrophils % 61.9 Lymphocytes % 27.2 Monocytes % 9.0 Eosinophils % 1.3 Basophils % 0.6 - Medications Given in the ED: ED Medications Discontinued Medications Generic Name Dose Route Start Last Admin Trade Name Freq PRN Reason Stop Dose Admin Acetaminophen 1,000 mg 03/15/18 02:32 03/15/18 02:55 Ofirmev Injection - IVPB 03/15/18 02:33 1,000 mg ONCE ONE Administration Hydromorphone HCl 1 mg 03/15/18 04:16 03/15/18 04:38 Dilaudid Injection - IVPB 03/15/18 04:17 1 mg ONCE ONE Administration Hydromorphone HCl 1 mg 03/15/18 08:28 03/15/18 08:41 Dilaudid Injection - IVPB 03/15/18 08:29 1 mg ONCE ONE Administration Sodium Chloride 1,000 mls @ 1,000 mls/hr 03/15/18 01:08 03/15/18 02:24 Normal Saline - IV 03/15/18 02:07 1,000 mls/hr ASDIR STA Administration Famotidine/Sodium Chloride 20 mg in 50 mls @ 100 mls/hr 03/15/18 01:10 02:25 Pepcid 20 Mg Premixed Ivpb - IVPB 03/15/18 01:39 100 mls/hr ONCE ONE Administration Ondansetron HCl 4 mg 03/15/18 01:08 03/15/18 02:25 Zofran Injection IVPUSH 03/15/18 01:09 4 mg ONCE ONE Administration Ondansetron HCl 4 mg 03/15/18 04:17 03/15/18 04:42 Zofran Injection IVPUSH 03/15/18 04:18 4 mg ONCE ONE Administration Ondansetron HCl 4 mg 03/15/18 08:27 03/15/18 08:41 Zofran Injection IVPUSH 03/15/18 08:28 4 mg ONCE ONE Administration Medical Decision Making - Medical Decision Making 03/15/18 08:57 a/p: 63yo female signed out pending labs, pain control, and re-eval -pt with n/v, inability to tolerate PO intake -pt with epigastric and diffuse abd pain -pt unable to tolerate sips of water in the ED and still with nausea -GI is Dr. Dejesus -PMD is Dr. Smith -labs reviewed and stable 03/15/18 08:58 pt requiring multiple doses of IV medication for pain and nausea control will place in obs pending nausea control and further eval. call placed to Dr. Smith - pending call back 03/15/18 09:[address] Smith who accepts pt to service *DC/Admit/Observation/Transfer Diagnosis at time of Disposition: Abdominal pain, chronic, epigastric, Nausea & vomiting - Discharge Dispostion Condition at time of disposition: Stable Decision to Admit order: Yes - Referrals Referrals: Joellen Smith MD [Primary Care Provider] - - Patient Instructions Printed Discharge Instructions: DI for Abdominal Pain-Adult Additional Instructions: Please return to the emergency department with any new or worsening symptoms or concerns. Please follow up with your primary care physician within 72 hours. - Post Discharge Activity - Attestations Physician Attestion: 03/15/18 08:59 I, Dr. Saskia Kurkowski, DO, attest that this document has been prepared under my direction and personally reviewed by me in its entirety. I further attest, that it accurately reflects all work, treatment, procedures and medical decision -making performed by me.
[2018-03-15] MEDS ORDERED: SUCRALFATE 1 GM TABLET (FP) ONE (09:14)
[2018-03-15] MEDS ORDERED: PANTOPRAZOLE SODIUM 40 MG/100 ML BAG IVPB ONE (09:14)
[2018-03-15] MEDS ORDERED: ONDANSETRON 4 MG/2 ML VIAL IVPUSH PRN (11:16)
[2018-03-15] MEDS ORDERED: D5-1/2NS+20 MEQ KCL - 20 MEQ/1,000 ML INFUS.BAG IV SCH (11:30)
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
[2018-03-15 14:31] LABS: AMYLASE 54 U/L (25-115); LIPASE 104 U/L (73-393)
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
[2018-03-15 15:59] VITALS: BMI 21.7
[2018-03-15] MEDS ORDERED: ACETAMINOPHEN 1000 MG/100 ML VIAL (NON FORMULARY) IVPB PRN (16:45)
[2018-03-15] MEDS ORDERED: HYDROmorphone HCl 2 MG/ML VIAL IVPUSH PRN (16:45)
[2018-03-15] MEDS ORDERED: SODIUM CHLORIDE 250 ML IV STA (16:46)
[2018-03-15] MEDS: SODIUM CHLORIDE 1,000 ML IV SCH (19:10)
[2018-03-15] MEDS: PANTOPRAZOLE SODIUM 40 MG VIAL IVPUSH SCH (21:28)
[2018-03-15] MEDS: ALPRAZolam 2 MG TABLET PO SCH (21:30)
[2018-03-15] MEDS: HEPARIN NA (PORCINE) 5,000 UNITS/ML 1ML VIAL SQ SCH (21:30)
[2018-03-15] MEDS: ONDANSETRON 4 MG/2 ML VIAL IVPUSH PRN (23:06)
[2018-03-15] MEDS: HYDROmorphone HCl 2 MG/ML VIAL IVPB PRN (23:07)
[2018-03-16] MEDS: SODIUM CHLORIDE 1,000 ML IV SCH ×3 (02:13→16:25)
[2018-03-16] MEDS: ONDANSETRON 4 MG/2 ML VIAL IVPUSH PRN ×3 (05:56→18:39)
[2018-03-16 07:07] LABS: BASO % 0.7 % (0-2.0); EOS % 3.1 % (0-4.5); HEMATOCRIT 36.9 % (32.4-45.2); HEMOGLOBIN 12.2 GM/dL (10.7-15.3); MCH 29.8 pg (25.7-33.7); MEAN CELL VOLUME 90.4 fl (80-96); MEAN PLT VOLUME 6.8 fl (7.5-11.1); MONO % 12.3 % (3.8-10.2); NEUT % 54.9 % (42.8-82.8); PLATELET COUNT 135 K/MM3 (134-434); RBC 4.09 M/mm3 (3.60-5.2)
[2018-03-16 07:14] LABS: ALBUMIN 3.2 g/dl (3.4-5.0); ALK PHOS 67 U/L (45-117); ANION GAP 7 MMOL/L (8-16); BILIRUBIN,TOTAL 0.7 mg/dL (0.2-1); BLOOD UREA NITROGEN 7 mg/dL (7-18); CALCIUM 8.4 mg/dL (8.5-10.1); CHLORIDE 112 mmol/L (98-107); CO2 24 mmol/L (21-32); CREATININE 0.5 mg/dL (0.55-1.3); GLUCOSE,RANDOM 75 mg/dL (74-106); POTASSIUM 3.8 mmol/L (3.5-5.1); SGOT/AST 29 U/L (15-37); SGPT/ALT 33 U/L (13-61); SODIUM 143 mmol/L (136-145); TOT PROT 5.5 g/dl (6.4-8.2)
[2018-03-16] MEDS: HYDROmorphone HCl 2 MG/ML VIAL IVPB PRN ×3 (07:23→19:03)
--- NOTE | 2018-03-16 09:21 | EKG ---
Test Reason : Blood Pressure : / mmHG Vent. Rate : 054 BPM Atrial Rate : 054 BPM P-R Int : 124 ms QRS Dur : 070 ms QT Int : 462 ms P-R-T Axes : 057 047 036 degrees QTc Int : 438 ms SINUS BRADYCARDIA OTHERWISE NORMAL ECG WHEN COMPARED WITH ECG OF 14-MAR-2018 23:46, NO SIGNIFICANT CHANGE WAS FOUND Confirmed by JUAN A ROJO MD ([id number]) on 03/16/2018 9:21:23 AM Referred By: Confirmed By:JUAN A ROJO MD
--- NOTE | 2018-03-16 09:22 | EKG ---
Test Reason : Blood Pressure : / mmHG Vent. Rate : 060 BPM Atrial Rate : 060 BPM P-R Int : 122 ms QRS Dur : 068 ms QT Int : 442 ms P-R-T Axes : 048 049 043 degrees QTc Int : 442 ms NORMAL SINUS RHYTHM NORMAL ECG WHEN COMPARED WITH ECG OF 21-SEP-2017 03:59, NO SIGNIFICANT CHANGE WAS FOUND Confirmed by JUAN A ROJO MD ([id number]) on 03/16/2018 9:22:09 AM Referred By: Confirmed By:JUAN A ROJO MD
[2018-03-16] MEDS ORDERED: CITALOPRAM HYDROBROMIDE 20 MG TABLET (FP) ONE (09:25)
[2018-03-16] MEDS ORDERED: CITALOPRAM HYDROBROMIDE 10 MG TABLET (FP) ONE (09:25)
[2018-03-16] MEDS: PANTOPRAZOLE SODIUM 40 MG VIAL IVPUSH SCH (09:47)
[2018-03-16] MEDS: HEPARIN NA (PORCINE) 5,000 UNITS/ML 1ML VIAL SQ SCH ×2 (09:48→21:42)
[2018-03-16] MEDS: ALPRAZolam 2 MG TABLET PO SCH ×2 (09:48→21:42)
[2018-03-16] MEDS ORDERED: CITALOPRAM HYDROBROMIDE 20 MG TABLET (FP) PO SCH (10:00)
[2018-03-16] MEDS ORDERED: CITALOPRAM HYDROBROMIDE PO SCH (10:00)
--- NOTE | 2018-03-16 10:19 | PN ---
Progress Note, Physician Chief Complaint: patient admitted with abdominal pain, nausea and diarrhea- h//o IBS CT scan pending to evaluate pancreas today 3 loose BM and complaining of abdominal pain- - Current Medication List Current Medications: Active Medications Acetaminophen (Ofirmev Injection -) 1,000 mg IVPB Q6H PRN PRN Reason: PAIN LEVEL 1-5 Last Admin: 03/16/18 02:45 Dose: 1,000 mg Alprazolam (Xanax -) 1 mg PO BID [facility] Last Admin: 03/16/18 09:48 Dose: 1 mg Citalopram Hydrobromide 10 mg/ (Citalopram Hydrobromide 20 mg) 30 mg PO DAILY [facility] Last Admin: 03/16/18 09:47 Dose: 20 mg Heparin Sodium (Porcine) (Heparin -) 5,000 unit SQ BID [facility] Last Admin: 03/16/18 09:48 Dose: 5,000 unit Hydromorphone HCl (Dilaudid Vial -) 1 mg IVPB Q8H PRN PRN Reason: PAIN 7-10 Last Admin: 03/16/18 07:23 Dose: 1 mg Sodium Chloride (Normal Saline -) 1,000 mls @ 150 mls/hr IV ASDIR [facility] Last Admin: 03/16/18 09:14 Dose: 150 mls/hr Ondansetron HCl (Zofran Injection) 4 mg IVPUSH Q4H PRN PRN Reason: NAUSEA Last Admin: 03/16/18 05:56 Dose: 4 mg Pantoprazole Sodium (Protonix Iv) 40 mg IVPUSH BID [facility] Last Admin: 03/16/18 09:47 Dose: 40 mg - Objective Vital Signs: Vital Signs Temperature 98.1 F 03/16/18 09:35 Pulse Rate 50 L 03/16/18 09:35 Respiratory Rate 18 03/16/18 09:35 Blood Pressure 115/61 03/16/18 09:35 O2 Sat by Pulse Oximetry (%) 97 03/15/18 20:00 Constitutional: Yes: Anxious, Thin Cardiovascular: Yes: Regular Rate and Rhythm, S1, S2 Respiratory: Yes: CTA Bilaterally Gastrointestinal: Yes: Hypoactive Bowel Sounds, Tenderness, Epigastrium, Other ( surgical scars) Edema: No Neurological: Yes: Alert, Oriented Labs: CBC, BMP 03/16/18 06:15 03/16/18 06:15 Problem List - Problems (1) Abdominal pain, chronic, epigastric Assessment/Plan: ct scan today to evaluate pancreas ivf NPO except meds until ct scan is done pain control will adjust medications zofran prn protonix appreciate consult Code(s): R10.13 - EPIGASTRIC PAIN; G89.29 - OTHER CHRONIC PAIN (2) Irritable bowel syndrome (IBS) Assessment/Plan: check stool cultures Code(s): K58.9 - IRRITABLE BOWEL SYNDROME WITHOUT DIARRHEA Qualifiers: Irritable bowel syndrome type: with diarrhea Qualified Code(s): K58.0 - Irritable bowel syndrome with diarrhea (3) Depression Assessment/Plan: celexa 20mg in am and 10mg a night Code(s): F32.9 - MAJOR DEPRESSIVE DISORDER, SINGLE EPISODE, UNSPECIFIED (4) Anxiety Assessment/Plan: xanax bid Code(s): F41.9 - ANXIETY DISORDER, UNSPECIFIED
[2018-03-16] MEDS: CITALOPRAM HYDROBROMIDE 20 MG TABLET (FP) PO SCH (13:11)
[2018-03-16] MEDS ORDERED: HYDROmorphone HCl 2 MG/ML VIAL IVPB SCH (15:00)
[2018-03-16] MEDS ORDERED: ACETAMINOPHEN 325 MG TABLET (FP) PO PRN (18:34)
--- NOTE | 2018-03-16 20:33 | PN ---
GI Progress Note Subjective: GI NOte: Still having loose BMs but pain is improved. Wants food. No vomiting. - Objective Vital Signs: Vital Signs Temperature 98.2 F 03/16/18 14:37 Pulse Rate 60 03/16/18 14:37 Respiratory Rate 20 03/16/18 14:37 Blood Pressure 117/59 L 03/16/18 14:37 O2 Sat by Pulse Oximetry (%) 97 03/16/18 09:35 Laboratory Tests 03/15/18 03/15/18 03/15/18 02:10 02:10 13:35 WBC 6.5 Total Bilirubin Total Amylase 54 Lipase 149 104 03/16/18 03/16/18 03/16/18 06:15 06:15 06:15 WBC 4.0 Total Bilirubin 0.7 Total Amylase Lipase 108 Constitutional: Anxious ...Auscultate: Yes: Normoactive Bowel Sounds ...Palpate: Yes: Soft, Other (nontender) Labs: CBC, BMP 03/16/18 06:15 03/16/18 06:15 Assessment/Plan Stop parenteral narcotics Trial of clear liquids Problem List - Problems (1) Irritable bowel syndrome (IBS) Assessment/Plan: Gastroenteritis vs flare of her IBS more likely than pancreatitis. I see no obvious pancreatic inflammation on the CT imaging of the pancreas but await official reading. Will stop parenteral analgesics and start clear liquids. 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 Code(s): E11.69 - TYPE 2 DIABETES MELLITUS WITH OTHER SPECIFIED COMPLICATION; K86.9 - DISEASE OF PANCREAS, UNSPECIFIED (5) Diverticula of colon Code(s): K57.30 - DVRTCLOS OF LG INT W/O PERFORATION OR ABSCESS W/O BLEEDING (6) Hemangioma of liver Code(s): D18.03 - HEMANGIOMA OF INTRA-ABDOMINAL STRUCTURES (7) History of Clostridium difficile colitis Code(s): Z86.19 - PERSONAL HISTORY OF OTHER INFECTIOUS AND PARASITIC DISEASES (8) History of cholecystectomy Code(s): Z90.49 - ACQUIRED ABSENCE OF OTHER SPECIFIED PARTS OF DIGESTIVE TRACT (9) History of partial pancreatectomy Code(s): Z90.411 - ACQUIRED PARTIAL ABSENCE OF PANCREAS (10) History of peptic ulcer disease Code(s): Z87.11 - PERSONAL HISTORY OF PEPTIC ULCER DISEASE (11) Hx of colonoscopy with polypectomy Code(s): Z98.89 - OTHER SPECIFIED POSTPROCEDURAL STATES * DO NOT USE * (12) Opioid dependence Code(s): F11.20 - OPIOID DEPENDENCE, UNCOMPLICATED (13) Pancreas divisum Code(s): Q45.3 - OTH CONGENITAL MALFORMATIONS OF PANCREAS AND PANCREATIC DUCT
[2018-03-16] MEDS: CITALOPRAM HYDROBROMIDE 10 MG TABLET (FP) PO SCH (21:42)
[2018-03-17] MEDS: oxyCODONE HCL 5 MG TABLET PO PRN ×4 (00:11→19:03)
[2018-03-17] MEDS: ACETAMINOPHEN 325 MG TABLET (FP) PO PRN ×2 (00:12→04:23)
[2018-03-17] MEDS: SODIUM CHLORIDE 1,000 ML IV SCH ×2 (01:31→10:22)
[2018-03-17] MEDS: ONDANSETRON 4 MG/2 ML VIAL IVPUSH PRN ×3 (04:23→19:03)
[2018-03-17 07:08] LABS: BASO % 0.5 % (0-2.0); EOS % 4.3 % (0-4.5); HEMATOCRIT 36.5 % (32.4-45.2); HEMOGLOBIN 12.1 GM/dL (10.7-15.3); LYMPH % 27.6 % (8-40); MCH 29.4 pg (25.7-33.7); MCHC 33.1 g/dl (32.0-36.0); MEAN CELL VOLUME 88.9 fl (80-96); MEAN PLT VOLUME 6.4 fl (7.5-11.1); MONO % 11.8 % (3.8-10.2); NEUT % 55.8 % (42.8-82.8); PLATELET COUNT 158 K/MM3 (134-434); RBC 4.11 M/mm3 (3.60-5.2); RDW 13.8 % (11.6-15.6); WHITE BLOOD COUNT 4.3 K/mm3 (4.0-10.0)
[2018-03-17 07:26] LABS: INR 1.15 (0.83-1.09); PROTHROMBIN TIME (PATIENT) 13.6 SEC (9.7-13.0)
[2018-03-17 08:14] LABS: ALBUMIN 3.1 g/dl (3.4-5.0); ALK PHOS 68 U/L (45-117); AMYLASE 83 U/L (25-115); ANION GAP 8 MMOL/L (8-16); BILIRUBIN,TOTAL 0.5 mg/dL (0.2-1); BLOOD UREA NITROGEN 7 mg/dL (7-18); CALCIUM 8.6 mg/dL (8.5-10.1); CHLORIDE 110 mmol/L (98-107); CHOLESTEROL 88 mg/dL (50-200); CO2 26 mmol/L (21-32); CREATININE 0.6 mg/dL (0.55-1.3); GLUCOSE,RANDOM 91 mg/dL (74-106); HDL CHOLESTEROL 39 mg/dL (40-60); POTASSIUM 3.9 mmol/L (3.5-5.1); SGOT/AST 29 U/L (15-37); SGPT/ALT 37 U/L (13-61); SODIUM 144 mmol/L (136-145); TOT PROT 5.5 g/dl (6.4-8.2); TRIGLYCERIDES 46 mg/dL (0-150)
[2018-03-17] MEDS: PANTOPRAZOLE 40 MG TABLET (FP) PO SCH (10:22)
[2018-03-17] MEDS: CITALOPRAM HYDROBROMIDE 20 MG TABLET (FP) PO SCH (10:22)
[2018-03-17] MEDS: ALPRAZolam 2 MG TABLET PO SCH ×2 (10:22→21:39)
[2018-03-17] MEDS: HEPARIN NA (PORCINE) 5,000 UNITS/ML 1ML VIAL SQ SCH ×2 (10:23→21:39)
--- NOTE | 2018-03-17 11:01 | PN ---
Progress Note, Physician Chief Complaint: patient seen and examined complaining of nausea after trying to eat jello last night did not try clear liquids - Current Medication List Current Medications: Active Medications Acetaminophen (Tylenol -) 650 mg PO Q4H PRN PRN Reason: PAIN LEVEL 1-5 Acetaminophen (Tylenol -) 325 mg PO Q4H PRN PRN Reason: PAIN 4-6 Stop: 03/19/18 20:51 Last Admin: 03/17/18 04:23 Dose: 325 mg Alprazolam (Xanax -) 1 mg PO BID [facility] Last Admin: 03/17/18 10:22 Dose: 1 mg Citalopram Hydrobromide (Celexa -) 20 mg PO DAILY [facility] Last Admin: 03/17/18 10:22 Dose: 20 mg Citalopram Hydrobromide (Celexa -) 10 mg PO DAILY@2100 [facility] Last Admin: 03/16/18 21:42 Dose: 10 mg Heparin Sodium (Porcine) (Heparin -) 5,000 unit SQ BID [facility] Last Admin: 03/17/18 10:23 Dose: Not Given Sodium Chloride (Normal Saline -) 1,000 mls @ 150 mls/hr IV ASDIR [facility] Last Admin: 03/17/18 10:22 Dose: 150 mls/hr Ondansetron HCl (Zofran Injection) 4 mg IVPUSH Q4H PRN PRN Reason: NAUSEA Last Admin: 03/17/18 10:50 Dose: 4 mg Oxycodone HCl (Roxicodone -) 5 mg PO Q4H PRN PRN Reason: PAIN 4-6 Last Admin: 03/17/18 04:22 Dose: 5 mg Pantoprazole Sodium (Protonix -) 40 mg PO DAILY [facility] Last Admin: 03/17/18 10:22 Dose: 40 mg - Objective Vital Signs: Vital Signs Temperature 98 F 03/17/18 10:34 Pulse Rate 60 03/17/18 10:34 Respiratory Rate 18 03/17/18 10:34 Blood Pressure 110/68 03/17/18 10:34 O2 Sat by Pulse Oximetry (%) 97 03/17/18 09:00 Constitutional: Yes: Mild Distress Cardiovascular: Yes: Regular Rate and Rhythm, S1, S2 Respiratory: Yes: CTA Bilaterally Gastrointestinal: Yes: Hypoactive Bowel Sounds, Tenderness, Epigastrium Edema: No Neurological: Yes: Alert, Oriented Labs: CBC, BMP 03/17/18 06:30 03/17/18 06:30 INR, PTT INR 1.15 (0.83-1.09) H 03/17/18 06:30 Problem List - Problems (1) Abdominal pain, chronic, epigastric Assessment/Plan: ct scan today to evaluate pancreas- awaiting report ivf restart not able to tolerate clear liquids- NPO again pain control will adjust medications zofran prn protonix GI on board Code(s): R10.13 - EPIGASTRIC PAIN; G89.29 - OTHER CHRONIC PAIN (2) Irritable bowel syndrome (IBS) Assessment/Plan: check stool cultures currently NPO ivf Code(s): K58.9 - IRRITABLE BOWEL SYNDROME WITHOUT DIARRHEA Qualifiers: Irritable bowel syndrome type: with diarrhea Qualified Code(s): K58.0 - Irritable bowel syndrome with diarrhea (3) Depression Assessment/Plan: celexa 20mg in am and 10mg a night Code(s): F32.9 - MAJOR DEPRESSIVE DISORDER, SINGLE EPISODE, UNSPECIFIED (4) Anxiety Assessment/Plan: xanax bid Code(s): F41.9 - ANXIETY DISORDER, UNSPECIFIED
[2018-03-17] MEDS: DEXTROSE 5%-0.45% SALINE 1,000 ML IV SCH ×2 (11:28→21:42)
--- NOTE | 2018-03-17 12:43 | PN ---
GI Progress Note Subjective: GI NOte: Had nausea with clear liquids so back to NPO status. CT scan reveals no acute pancreatic inflammation or other focus for abdominal symptoms. Janeth tells me that she cannot tolerate Dale. I discussed the situation with Dr. Jane. Dr Gutierrez will be covering this weekend. - Objective Vital Signs: Vital Signs Temperature 98 F 03/17/18 10:34 Pulse Rate 60 03/17/18 10:34 Respiratory Rate 18 03/17/18 10:34 Blood Pressure 110/68 03/17/18 10:34 O2 Sat by Pulse Oximetry (%) 97 03/17/18 09:00 Laboratory Tests 03/17/18 03/17/18 06:30 06:30 C-Reactive Protein 0.3 Total Amylase 83 Constitutional: Calm ...Auscultate: Yes: Normoactive Bowel Sounds ...Palpate: Yes: Soft, Other (nontender) Labs: CBC, BMP 03/17/18 06:30 03/17/18 06:30 INR, PTT INR 1.15 (0.83-1.09) H 03/17/18 06:30 Problem List - Problems (1) Irritable bowel syndrome (IBS) Assessment/Plan: Chronic abdominal pain without evidence of pancreatitis by imaging or chemistries. Suspect viral gastroenteritis vs IBS flare. Once pain and nausea remit and parenteral analgesics can be stopped would resume trial of clear liquids. I explained to Janeth that the narcotics may be the source of her nausea. Dr Gutierrez will be covering . Please call him if his help is needed. 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 Code(s): E11.69 - TYPE 2 DIABETES MELLITUS WITH OTHER SPECIFIED COMPLICATION; K86.9 - DISEASE OF PANCREAS, UNSPECIFIED (5) Diverticula of colon Code(s): K57.30 - DVRTCLOS OF LG INT W/O PERFORATION OR ABSCESS W/O BLEEDING (6) Hemangioma of liver Code(s): D18.03 - HEMANGIOMA OF INTRA-ABDOMINAL STRUCTURES (7) History of Clostridium difficile colitis Code(s): Z86.19 - PERSONAL HISTORY OF OTHER INFECTIOUS AND PARASITIC DISEASES (8) History of cholecystectomy Code(s): Z90.49 - ACQUIRED ABSENCE OF OTHER SPECIFIED PARTS OF DIGESTIVE TRACT (9) History of partial pancreatectomy Code(s): Z90.411 - ACQUIRED PARTIAL ABSENCE OF PANCREAS (10) History of peptic ulcer disease Code(s): Z87.11 - PERSONAL HISTORY OF PEPTIC ULCER DISEASE (11) Hx of colonoscopy with polypectomy Code(s): Z98.89 - OTHER SPECIFIED POSTPROCEDURAL STATES * DO NOT USE * (12) Opioid dependence Code(s): F11.20 - OPIOID DEPENDENCE, UNCOMPLICATED (13) Pancreas divisum Code(s): Q45.3 - OTH CONGENITAL MALFORMATIONS OF PANCREAS AND PANCREATIC DUCT
[2018-03-17] MEDS: HYDROmorphone HCl 2 MG/ML VIAL IVPB PRN ×2 (14:47→20:37)
[2018-03-17] MEDS: CITALOPRAM HYDROBROMIDE 10 MG TABLET (FP) PO SCH (21:39)
[2018-03-18] MEDS ORDERED: HYDROmorphone HCl 2 MG/ML VIAL IVPUSH ONE ×2 (02:15→20:11)
[2018-03-18] MEDS: HYDROmorphone HCl 2 MG/ML VIAL IVPB PRN ×2 (06:41→13:19)
[2018-03-18] MEDS: DEXTROSE 5%-0.45% SALINE 1,000 ML IV SCH ×3 (09:08→18:50)
[2018-03-18] MEDS: HEPARIN NA (PORCINE) 5,000 UNITS/ML 1ML VIAL SQ SCH ×2 (10:37→21:32)
[2018-03-18] MEDS: CITALOPRAM HYDROBROMIDE 20 MG TABLET (FP) PO SCH (10:38)
[2018-03-18] MEDS: PANTOPRAZOLE 40 MG TABLET (FP) PO SCH (10:38)
[2018-03-18] MEDS: ALPRAZolam 2 MG TABLET PO SCH ×2 (10:38→21:31)
--- NOTE | 2018-03-18 11:19 | PN ---
Progress Note, Physician Chief Complaint: AWAKE ALERT C/O PAIN POOR APPETITE DIARRHEA - Current Medication List Current Medications: Active Medications Acetaminophen (Tylenol -) 650 mg PO Q4H PRN PRN Reason: PAIN LEVEL 1-5 Acetaminophen (Tylenol -) 325 mg PO Q4H PRN PRN Reason: PAIN 4-6 Stop: 03/19/18 20:51 Last Admin: 03/17/18 04:23 Dose: 325 mg Alprazolam (Xanax -) 1 mg PO BID [facility] Last Admin: 03/18/18 10:38 Dose: 1 mg Citalopram Hydrobromide (Celexa -) 20 mg PO DAILY [facility] Last Admin: 03/18/18 10:38 Dose: 20 mg Citalopram Hydrobromide (Celexa -) 10 mg PO DAILY@2100 [facility] Last Admin: 03/17/18 21:39 Dose: 10 mg Heparin Sodium (Porcine) (Heparin -) 5,000 unit SQ BID [facility] Last Admin: 03/18/18 10:37 Dose: 5,000 unit Hydromorphone HCl (Dilaudid Vial -) 1 mg IVPB Q6H PRN PRN Reason: PAIN LEVEL 7 - 10 Last Admin: 03/18/18 06:41 Dose: 1 mg Dextrose/Sodium Chloride (D5-1/2ns -) 1,000 mls @ 100 mls/hr IV ASDIR [facility] Last Admin: 03/18/18 09:08 Dose: 100 mls/hr Ondansetron HCl (Zofran Injection) 4 mg IVPUSH Q4H PRN PRN Reason: NAUSEA Last Admin: 03/17/18 19:03 Dose: 4 mg Oxycodone HCl (Roxicodone -) 5 mg PO Q4H PRN PRN Reason: PAIN 4-6 Last Admin: 03/17/18 19:03 Dose: 5 mg Pantoprazole Sodium (Protonix -) 40 mg PO DAILY [facility] Last Admin: 03/18/18 10:38 Dose: 40 mg - Objective Vital Signs: Vital Signs Temperature 97.9 F 03/18/18 05:22 Pulse Rate 50 L 03/18/18 05:22 Respiratory Rate 20 03/18/18 05:22 Blood Pressure 133/68 03/18/18 05:22 O2 Sat by Pulse Oximetry (%) 96 03/17/18 21:00 Constitutional: Yes: Moderate Distress Eyes: Yes: WNL HENT: Yes: WNL Neck: Yes: WNL Cardiovascular: Yes: WNL Respiratory: Yes: WNL Gastrointestinal: Yes: Tenderness Genitourinary: Yes: WNL Musculoskeletal: Yes: WNL Extremities: Yes: WNL Edema: No Peripheral Pulses WNL: Yes Integumentary: Yes: WNL Wound/Incision: Yes: Clean/Dry Neurological: Yes: WNL ...Motor Strength: LLE Psychiatric: Yes: Other Labs: CBC, BMP 03/17/18 06:30 03/17/18 06:30 INR, PTT INR 1.15 (0.83-1.09) H 03/17/18 06:30 Problem List - Problems (1) Abdominal pain, chronic, epigastric Code(s): R10.13 - EPIGASTRIC PAIN; G89.29 - OTHER CHRONIC PAIN (2) Irritable bowel syndrome (IBS) Code(s): K58.9 - IRRITABLE BOWEL SYNDROME WITHOUT DIARRHEA Qualifiers: Irritable bowel syndrome type: with diarrhea Qualified Code(s): K58.0 - Irritable bowel syndrome with diarrhea (3) Nausea & vomiting Code(s): R11.2 - NAUSEA WITH VOMITING, UNSPECIFIED (4) Abdominal pain Code(s): R10.9 - UNSPECIFIED ABDOMINAL PAIN Qualifiers: Abdominal location: unspecified location Qualified Code(s): R10.9 - Unspecified abdominal pain (5) Anxiety Code(s): F41.9 - ANXIETY DISORDER, UNSPECIFIED (6) Chronic pancreatitis Code(s): K86.1 - OTHER CHRONIC PANCREATITIS Qualifiers: Pancreatitis type: unspecified pancreatitis type Qualified Code(s): K86.1 - Other chronic pancreatitis (7) Diabetes mellitus associated with pancreatic disease Code(s): E11.69 - TYPE 2 DIABETES MELLITUS WITH OTHER SPECIFIED COMPLICATION; K86.9 - DISEASE OF PANCREAS, UNSPECIFIED Assessment/Plan GI EVAL APPRECIATED NPO/IVF/ANTIEMETICS PAIN CONTROL ZOFRAN IV NPO TODAY OOB TO CHAIR DVT PROPHYLAXIS
--- NOTE | 2018-03-18 16:12 | PN ---
GI Progress Note Subjective: GI NOte: The pain has improved enough that Janeth wants to try to eat. - Objective Vital Signs: Vital Signs Temperature 97.4 F L 03/18/18 14:08 Pulse Rate 53 L 03/18/18 14:08 Respiratory Rate 20 03/18/18 14:08 Blood Pressure 121/58 L 03/18/18 14:08 O2 Sat by Pulse Oximetry (%) 96 03/17/18 21:00 Laboratory Tests 03/17/18 06:30 C-Reactive Protein 0.3 Constitutional: Anxious ...Auscultate: Yes: Normoactive Bowel Sounds ...Palpate: Yes: Soft, Other (mild LLQ tenderness, no peritoneal signs) Labs: CBC, BMP 03/17/18 06:30 03/17/18 06:30 INR, PTT INR 1.15 (0.83-1.09) H 03/17/18 06:30 Assessment/Plan Stop Dilaudid Trial of liquids If tolerated will try solids in AM. If tolerated can discharge Problem List - Problems (1) Irritable bowel syndrome (IBS) Assessment/Plan: Chronic abdominal pain without evidence of pancreatitis by imaging or chemistries. Suspect viral gastroenteritis vs IBS flare. Will start trial of clear liquids and stop parenteral analgesic. Dr Gutierrez is covering this weekend but I am temporarily covering him. Please call him if his help is needed. 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 Code(s): E11.69 - TYPE 2 DIABETES MELLITUS WITH OTHER SPECIFIED COMPLICATION; K86.9 - DISEASE OF PANCREAS, UNSPECIFIED (5) Diverticula of colon Code(s): K57.30 - DVRTCLOS OF LG INT W/O PERFORATION OR ABSCESS W/O BLEEDING (6) Hemangioma of liver Code(s): D18.03 - HEMANGIOMA OF INTRA-ABDOMINAL STRUCTURES (7) History of Clostridium difficile colitis Code(s): Z86.19 - PERSONAL HISTORY OF OTHER INFECTIOUS AND PARASITIC DISEASES (8) History of cholecystectomy Code(s): Z90.49 - ACQUIRED ABSENCE OF OTHER SPECIFIED PARTS OF DIGESTIVE TRACT (9) History of partial pancreatectomy Code(s): Z90.411 - ACQUIRED PARTIAL ABSENCE OF PANCREAS (10) History of peptic ulcer disease Code(s): Z87.11 - PERSONAL HISTORY OF PEPTIC ULCER DISEASE (11) Hx of colonoscopy with polypectomy Code(s): Z98.89 - OTHER SPECIFIED POSTPROCEDURAL STATES * DO NOT USE * (12) Opioid dependence Code(s): F11.20 - OPIOID DEPENDENCE, UNCOMPLICATED (13) Pancreas divisum Code(s): Q45.3 - OTH CONGENITAL MALFORMATIONS OF PANCREAS AND PANCREATIC DUCT
[2018-03-18] MEDS ORDERED: ACETAMINOPHEN 325 MG TABLET (FP) PO PRN (16:24)
[2018-03-18] MEDS: ONDANSETRON 4 MG/2 ML VIAL IVPUSH PRN (19:24)
[2018-03-18] MEDS: CITALOPRAM HYDROBROMIDE 10 MG TABLET (FP) PO SCH (20:58)
[2018-03-19] MEDS: oxyCODONE HCL 5 MG TABLET PO PRN ×6 (02:08→20:37)
[2018-03-19] MEDS: DEXTROSE 5%-0.45% SALINE 1,000 ML IV SCH ×3 (05:49→16:03)
[2018-03-19] MEDS: ACETAMINOPHEN 325 MG TABLET (FP) PO PRN ×3 (06:18→20:38)
[2018-03-19] MEDS: ONDANSETRON 4 MG/2 ML VIAL IVPUSH PRN ×2 (06:24→17:21)
[2018-03-19 07:24] LABS: BASO % 0.4 % (0-2.0); EOS % 3.4 % (0-4.5); HEMATOCRIT 39.4 % (32.4-45.2); HEMOGLOBIN 12.9 GM/dL (10.7-15.3); LYMPH % 21.7 % (8-40); MCH 29.4 pg (25.7-33.7); MCHC 32.9 g/dl (32.0-36.0); MEAN CELL VOLUME 89.5 fl (80-96); MEAN PLT VOLUME 6.7 fl (7.5-11.1); MONO % 9.4 % (3.8-10.2); NEUT % 65.1 % (42.8-82.8); PLATELET COUNT 196 K/MM3 (134-434); WHITE BLOOD COUNT 5.9 K/mm3 (4.0-10.0)
[2018-03-19 07:56] LABS: ALBUMIN 3.3 g/dl (3.4-5.0); ALK PHOS 80 U/L (45-117); ANION GAP 4 MMOL/L (8-16); BILIRUBIN,TOTAL 0.5 mg/dL (0.2-1); BLOOD UREA NITROGEN 5 mg/dL (7-18); CALCIUM 8.5 mg/dL (8.5-10.1); CHLORIDE 107 mmol/L (98-107); CO2 32 mmol/L (21-32); CREATININE 0.7 mg/dL (0.55-1.3); GLUCOSE,RANDOM 108 mg/dL (74-106); POTASSIUM 3.8 mmol/L (3.5-5.1); SGOT/AST 39 U/L (15-37); SGPT/ALT 44 U/L (13-61); SODIUM 143 mmol/L (136-145)
[2018-03-19] MEDS: PANTOPRAZOLE 40 MG TABLET (FP) PO SCH (09:31)
[2018-03-19] MEDS: HEPARIN NA (PORCINE) 5,000 UNITS/ML 1ML VIAL SQ SCH ×2 (09:31→21:27)
[2018-03-19] MEDS: CITALOPRAM HYDROBROMIDE 20 MG TABLET (FP) PO SCH (09:31)
[2018-03-19] MEDS: ALPRAZolam 2 MG TABLET PO SCH ×2 (09:31→21:27)
--- NOTE | 2018-03-19 13:40 | PN ---
Progress Note, Physician Chief Complaint: AWAKE ALERT FEELING BETTER - Current Medication List Current Medications: Active Medications Acetaminophen (Tylenol -) 325 mg PO Q4H PRN PRN Reason: PAIN 4-6 Stop: 03/19/18 20:51 Last Admin: 03/19/18 06:18 Dose: 325 mg Acetaminophen (Tylenol -) 650 mg PO Q4H PRN PRN Reason: PAIN LEVEL 7-10 Alprazolam (Xanax -) 1 mg PO BID [facility] Last Admin: 03/19/18 09:31 Dose: 1 mg Citalopram Hydrobromide (Celexa -) 20 mg PO DAILY [facility] Last Admin: 03/19/18 09:31 Dose: 20 mg Citalopram Hydrobromide (Celexa -) 10 mg PO DAILY@2100 [facility] Last Admin: 03/18/18 20:58 Dose: 10 mg Heparin Sodium (Porcine) (Heparin -) 5,000 unit SQ BID [facility] Last Admin: 03/19/18 09:31 Dose: 5,000 unit Dextrose/Sodium Chloride (D5-1/2ns -) 1,000 mls @ 100 mls/hr IV ASDIR [facility] Last Admin: 03/19/18 05:49 Dose: 100 mls/hr Ondansetron HCl (Zofran Injection) 4 mg IVPUSH Q4H PRN PRN Reason: NAUSEA Last Admin: 03/19/18 06:24 Dose: 4 mg Oxycodone HCl (Roxicodone -) 5 mg PO Q4H PRN PRN Reason: PAIN 4-6 Last Admin: 03/17/18 19:03 Dose: 5 mg Oxycodone HCl (Roxicodone -) 10 mg PO Q4H PRN PRN Reason: PAIN 7-10 Last Admin: 03/19/18 06:18 Dose: 10 mg Pantoprazole Sodium (Protonix -) 40 mg PO DAILY [facility] Last Admin: 03/19/18 09:31 Dose: 40 mg - Objective Vital Signs: Vital Signs Temperature 97.9 F 03/18/18 18:41 Pulse Rate 51 L 03/19/18 05:22 Respiratory Rate 18 03/19/18 05:22 Blood Pressure 128/69 03/19/18 05:22 O2 Sat by Pulse Oximetry (%) 99 03/18/18 09:00 Constitutional: Yes: Mild Distress Eyes: Yes: WNL HENT: Yes: WNL Neck: Yes: WNL Cardiovascular: Yes: WNL Respiratory: Yes: WNL Gastrointestinal: Yes: Tenderness Genitourinary: Yes: WNL Musculoskeletal: Yes: Muscle Weakness Extremities: Yes: WNL Edema: No Peripheral Pulses WNL: Yes Integumentary: Yes: WNL Wound/Incision: Yes: Clean/Dry Neurological: Yes: WNL ...Motor Strength: WNL Psychiatric: Yes: Other Labs: CBC, BMP 03/19/18 06:00 03/19/18 06:00 INR, PTT INR 1.15 (0.83-1.09) H 03/17/18 06:30 Problem List - Problems (1) Abdominal pain, chronic, epigastric Code(s): R10.13 - EPIGASTRIC PAIN; G89.29 - OTHER CHRONIC PAIN (2) Irritable bowel syndrome (IBS) Code(s): K58.9 - IRRITABLE BOWEL SYNDROME WITHOUT DIARRHEA Qualifiers: Irritable bowel syndrome type: with diarrhea Qualified Code(s): K58.0 - Irritable bowel syndrome with diarrhea (3) Nausea & vomiting Code(s): R11.2 - NAUSEA WITH VOMITING, UNSPECIFIED (4) Abdominal pain Code(s): R10.9 - UNSPECIFIED ABDOMINAL PAIN Qualifiers: Abdominal location: unspecified location Qualified Code(s): R10.9 - Unspecified abdominal pain (5) Anxiety Code(s): F41.9 - ANXIETY DISORDER, UNSPECIFIED (6) Chronic pancreatitis Code(s): K86.1 - OTHER CHRONIC PANCREATITIS Qualifiers: Pancreatitis type: unspecified pancreatitis type Qualified Code(s): K86.1 - Other chronic pancreatitis (7) Diabetes mellitus associated with pancreatic disease Code(s): E11.69 - TYPE 2 DIABETES MELLITUS WITH OTHER SPECIFIED COMPLICATION; K86.9 - DISEASE OF PANCREAS, UNSPECIFIED Assessment/Plan FEELING BETTER READY FOR DISCHARGE TOMORROW TOLERATING MEALS PROSOURCE ADDED MVI OOB TO CHAIR PT PPI/ZOFRAN
[2018-03-19] MEDS: AMINO ACIDS/PROTEIN HYDROLYS 30 ML LIQUID.PKT PO SCH (17:21)
[2018-03-19] MEDS: CITALOPRAM HYDROBROMIDE 10 MG TABLET (FP) PO SCH (20:37)
[2018-03-20] MEDS: DEXTROSE 5%-0.45% SALINE 1,000 ML IV SCH ×2 (01:10→12:38)
[2018-03-20] MEDS: oxyCODONE HCL 5 MG TABLET PO PRN ×3 (01:10→10:22)
[2018-03-20] MEDS ORDERED: MULTIVITAMINS (DAILY MVI) TABLET (FP) PO SCH (10:00)
[2018-03-20] MEDS: ALPRAZolam 2 MG TABLET PO SCH (10:21)
[2018-03-20] MEDS: AMINO ACIDS/PROTEIN HYDROLYS 30 ML LIQUID.PKT PO SCH ×2 (10:21→17:03)
[2018-03-20] MEDS: HEPARIN NA (PORCINE) 5,000 UNITS/ML 1ML VIAL SQ SCH (10:22)
[2018-03-20] MEDS: PANTOPRAZOLE 40 MG TABLET (FP) PO SCH (10:22)
[2018-03-20] MEDS: CITALOPRAM HYDROBROMIDE 20 MG TABLET (FP) PO SCH (10:22)
--- NOTE | 2018-03-20 11:32 | PN ---
Progress Note, Physician Chief Complaint: patient seen ambulating hallway with PT to give trial of soft food today - Current Medication List Current Medications: Active Medications Acetaminophen (Tylenol -) 650 mg PO Q4H PRN PRN Reason: PAIN LEVEL 7-10 Alprazolam (Xanax -) 1 mg PO BID [facility] Last Admin: 03/20/18 10:21 Dose: 1 mg Amino Acids (Prosource No Carb Liquid Pkt) 30 ml PO BID@0800,1730 [facility] Last Admin: 03/20/18 10:21 Dose: 30 ml Citalopram Hydrobromide (Celexa -) 20 mg PO DAILY [facility] Last Admin: 03/20/18 10:22 Dose: 20 mg Citalopram Hydrobromide (Celexa -) 10 mg PO DAILY@2100 [facility] Last Admin: 03/19/18 20:37 Dose: 10 mg Heparin Sodium (Porcine) (Heparin -) 5,000 unit SQ BID [facility] Last Admin: 03/20/18 10:22 Dose: 5,000 unit Dextrose/Sodium Chloride (D5-1/2ns -) 1,000 mls @ 100 mls/hr IV ASDIR [facility] Last Admin: 03/20/18 01:10 Dose: 100 mls/hr Multivitamins/Minerals/Vitamin C (Tab-A-Vit -) 1 tab PO DAILY [facility] Last Admin: 03/20/18 10:21 Dose: 1 tab Ondansetron HCl (Zofran Injection) 4 mg IVPUSH Q4H PRN PRN Reason: NAUSEA Last Admin: 03/19/18 17:21 Dose: 4 mg Oxycodone HCl (Roxicodone -) 5 mg PO Q4H PRN PRN Reason: PAIN 4-6 Last Admin: 03/19/18 20:37 Dose: 5 mg Oxycodone HCl (Roxicodone -) 10 mg PO Q4H PRN PRN Reason: PAIN 7-10 Last Admin: 03/20/18 10:22 Dose: 10 mg Pantoprazole Sodium (Protonix -) 40 mg PO DAILY [facility] Last Admin: 03/20/18 10:22 Dose: 40 mg - Objective Vital Signs: Vital Signs Temperature 97.8 F 03/20/18 06:00 Pulse Rate 55 L 03/20/18 06:00 Respiratory Rate 18 03/20/18 06:00 Blood Pressure 133/55 L 03/20/18 06:00 O2 Sat by Pulse Oximetry (%) 99 03/18/18 09:00 Constitutional: Yes: Calm, Thin Cardiovascular: Yes: Regular Rate and Rhythm, S1, S2 Respiratory: Yes: CTA Bilaterally Gastrointestinal: Yes: Tenderness (mild tenderness) Edema: No Neurological: Yes: Alert, Oriented Labs: CBC, BMP 03/19/18 06:00 03/19/18 06:00 INR, PTT INR 1.15 (0.83-1.09) H 03/17/18 06:30 Problem List - Problems (1) Abdominal pain, chronic, epigastric Assessment/Plan: ct scan today to evaluate pancreas- no evidence of acute or chronic pancreatitis tolerated clear diet to advance to soft diet today po pain meds Code(s): R10.13 - EPIGASTRIC PAIN; G89.29 - OTHER CHRONIC PAIN (2) Irritable bowel syndrome (IBS) Assessment/Plan: soft diet today Code(s): K58.9 - IRRITABLE BOWEL SYNDROME WITHOUT DIARRHEA Qualifiers: Irritable bowel syndrome type: with diarrhea Qualified Code(s): K58.0 - Irritable bowel syndrome with diarrhea (3) Depression Assessment/Plan: celexa 20mg in am and 10mg a night Code(s): F32.9 - MAJOR DEPRESSIVE DISORDER, SINGLE EPISODE, UNSPECIFIED (4) Anxiety Assessment/Plan: xanax bid Code(s): F41.9 - ANXIETY DISORDER, UNSPECIFIED
--- NOTE | 2018-03-20 12:47 | DS ---
Physical Examination Vital Signs: Vital Signs Temperature 97.8 F 03/20/18 06:00 Pulse Rate 55 L 03/20/18 06:00 Respiratory Rate 18 03/20/18 06:00 Blood Pressure 133/55 L 03/20/18 06:00 O2 Sat by Pulse Oximetry (%) 99 03/18/18 09:00 patient ate soft diet and now has no pain Constitutional: Yes: Calm Cardiovascular: Yes: Regular Rate and Rhythm, S1, S2 Respiratory: Yes: CTA Bilaterally Gastrointestinal: Yes: Normal Bowel Sounds, Soft, Tenderness (mild tenderness when seen earlier in day) Edema: No Labs: CBC, BMP 03/19/18 06:00 03/19/18 06:00 Discharge Summary Reason For Visit: ABDOMINAL PAIN Current Active Problems Abdominal pain, chronic, epigastric (Acute) Irritable bowel syndrome (IBS) (Acute) Nausea & vomiting (Acute) Other Procedures: ct scan of abdomen and pelvis Hospital Course: - Primary Care Physician PCP: Preeti Chen - Admission Chief Complaint: ABD PAIN, NAUSEA AND VOMITING History of Present Illness: 62 yo F with h/o DM, Anixety, Depression, PUD, chronic pancreatitis who p/w abdominal pain. Patient reports 1 week of worsening, sharp, spasmodic epigastric pain, worse with PO intake. Also endorses decreased PO intake, and nausea without vomiting. Decreased bowel movements. Symptoms not improved with OTC Hydrocodone, and Zofran. Pain consistent with pancreatitis in past. Chronic pancreatitis related to pancreas divisum, which failed stenting, and a puestow partial pancreaectomy (1997), with 2 revisions, and multiple celiac axis blocks. [address] Sena at [facility]. in hospital scan showed no acute or chronic pancreatitis was NPO on iv fluids then trial of clears and then soft diet amlase lipase normal followed by GI in hospital ready to go home Condition: Stable - Instructions Diet, Activity, Other Instructions: Please return to the emergency department with any new or worsening symptoms or concerns. Please follow up with your primary care physician within 72 hours. Referrals: Joellen Smith MD [Primary Care Provider] - Disposition: HOME - Home Medications Comprehensive Discharge Medication List: Ambulatory Orders Alprazolam [Xanax] 1 mg PO BID 09/21/17 Citalopram Hydrobromide [Celexa -] 30 mg PO DAILY 09/21/17 Hydrocodone/Acetaminophen [Hydrocodone-Acetamin 10-300 mg] 1 each PO BID PRN Pregabalin [Lyrica] 150 mg PO HS 09/21/17 Cholecalciferol (Vitamin D3) [Vitamin D -] 1,000 unit PO DAILY 12/14/17 Ondansetron HCl [Zofran] 4 mg PO DAILY PRN 12/14/17 Polyethylene Glycol 3350 [Miralax 119 gm Btl -] 17 gm PO DAILY PRN 12/14/17 Ranitidine [Zantac -] 150 mg PO DAILY 12/14/17 Rosuvastatin Calcium 10 mg PO DAILY 12/14/17
[2018-03-20 15:10] VITALS: BP 129/71; PULSE 57; TEMP 98.2
== END 2018-03-20 18:04 | disposition home or self-care (01) | DRG 392 ==
LOC: JER 23:41 → JERBED 03-15 06:56 → J5S 03-15 15:51 → OBSVTOIN 03-15 16:42
PROVIDERS: ADMIT Family Medicine; ATTEND Family Medicine
DX: K58.9 Irritable bowel syndrome, unspecified (principal); K86.1 Other chronic pancreatitis; Q45.3 Other congenital malformations of pancreas and pancreatic duct; F11.20 Opioid dependence, uncomplicated; R11.2 Nausea with vomiting, unspecified; F41.8 Other specified anxiety disorders; R10.13 Epigastric pain; I34.1 Nonrheumatic mitral (valve) prolapse; E03.9 Hypothyroidism, unspecified; D18.03 Hemangioma of intra-abdominal structures; E04.1 Nontoxic single thyroid nodule; K44.9 Diaphragmatic hernia without obstruction or gangrene; K29.70 Gastritis, unspecified, without bleeding; G89.29 Other chronic pain; E11.69 Type 2 diabetes mellitus with other specified complication; Z87.11 Personal history of peptic ulcer disease; Z86.19 Personal history of other infectious and parasitic diseases; Z90.49 Acquired absence of other specified parts of digestive tract
CPT/HCPCS: 36415; 71045-TC-FY; 74019-TC-FY; 74178-TC; 76700-TC; 80048; 80053; 80061; 82150; 83690; 83721; 84478; 85025; 85610; 86140; 87045; 87046; 87186; 87324; 87449; 93005; 93010; 97116-GP; 97161-GP; 99283-25; G0378; J0131; J1644; J7030

== ENCOUNTER 2019-06-21 14:08 | Inpatient (IN) | payer OTHER, MEDICARE ==
--- NOTE | 2019-06-21 14:24 | PDOC ---
Rapid Medical Evaluation Time Seen by Provider: 06/21/19 14:20 Medical Evaluation: Allergies Allergy/AdvReac Type Severity Reaction Status Date / Time ketorolac [From Toradol] Allergy Verified 03/15/18 01:12 morphine Allergy Itching Verified 03/15/18 01:12 Sulfa (Sulfonamide Allergy Verified 03/15/18 01:12 Antibiotics) 06/21/19 14:21 CC: palpitaions and SOB PE: accessory muscle use noted. RRR. No m/r/g. Orders: cardiac w/u Patient will proceed to ER for complete evaluation. 06/21/19 14:22 Discharge Disposition - Diagnosis Palpitations - Referrals - Patient Instructions - Post Discharge Activity
[2019-06-21 14:25] VITALS: BMI 18.5
[2019-06-21] MEDS ORDERED: ACETAMINOPHEN 1000 MG/100 ML VIAL (NON FORMULARY) IVPB ONE ×3 (15:54→22:43)
[2019-06-21] MEDS ORDERED: ONDANSETRON 4 MG/2 ML VIAL IVPUSH ONE (15:54)
[2019-06-21] MEDS ORDERED: SODIUM CHLORIDE 0.9% 500 ML INFUS.BAG IV ONE (15:54)
--- NOTE | 2019-06-21 16:03 | PDOC ---
Attending Attestation - Resident Resident Name: JinSheylaShlomo - ED Attending Attestation I have performed the following: I have examined & evaluated the patient, The case was reviewed & discussed with the resident, I agree w/resident's findings & plan, Exceptions are as noted - HPI HPI: 06/21/19 15:58 64 F with h/o DM, Anixety, Depression, PUD, chronic pancreatitis, presenting to ED with abdominal pain, nausea, and palpitations. Pt states that she was admitted to [facility] last week for a pancreatitis flare. She was discharged home a few days ago but has since had recurrence of her pain with associated nausea and PO intolerance. In addition, pt has been having palpitations, which she describes as a heart pounding sensation. She denies any CP/SOB. States that she feels her palpitations with any exertion. - Physicial Exam PE: 06/21/19 16:04 "GENERAL: Awake, alert, and fully oriented, in no acute distress. HEAD: No signs of trauma EYES: PERRLA, EOMI, sclera anicteric, conjunctiva clear ENT: Auricles normal inspection, hearing grossly normal, nares patent, oropharynx clear without exudates. Moist mucosa NECK: Nontender, no stepoffs, Normal ROM, supple, no lymphadenopathy, JVD, or masses LUNGS: Breath sounds equal, clear to auscultation bilaterally. No wheezes, and no crackles HEART: Regular rate and rhythm, normal S1 and S2, no murmurs, rubs or gallops ABDOMEN: + epigastric and LUQ TTP, normoactive bowel sounds. No guarding, no rebound. No masses EXTREMITIES: Normal range of motion, no edema. No clubbing or cyanosis. No cords, erythema, or tenderness NEUROLOGICAL: Cranial nerves II through XII intact. 5/5 strength and sensation in all extremities, Normal speech, normal gait, normal cerebellar function SKIN: Warm, Dry, normal turgor, no rashes or lesions noted. - Medical Decision Making 06/21/19 16:04 64 F with abdominal pain, nausea, and palpitations. Pt likely with recurrent pancreatitis. Pt's palpitations likely 2/2 dehydration. EKG shows sinus tach. - Labs, lipase, cardiac enzymes - IVF, pain control - Admit
--- NOTE | 2019-06-21 16:08 | PDOC ---
History of Present Illness - General Chief Complaint: Pain, Acute Stated Complaint: SENT BY PCP/INES PALPITATIONS Time Seen by Provider: 06/21/19 14:20 History Source: Patient Exam Limitations: No Limitations - History of Present Illness Initial Comments: 06/21/19 16:02 Janeth Spann is a 64F with PMH pancreatic divisum s/p 3x surgeries including cholecystectomy, chronic pancreatitis, presents with 3 days of intermittent palpitations, epigastric/abdominal pain, and nausea and diarrhea. Patient has longstanding history of pancreatic disease due to pancreatic divisum , has had multiple surgeries to correct this, last 2004. Multiple episodes of pancreatitis in her lifetime, last at [place] for pancreatitis and discharged last week. [place] okay for a few days but then 3 days ago began having epigastric pain, nausea, non-bloody diarrhea, poor PO intake. Was formerly on hydrocodone for pain control for pancreatitis, has pain doctor who wants to wean her off. Also having palpitations that occur intermittently and randomly. No other cardiac history, denies chest pain, no prior history of palpitations, had MVP in 1980s that was not treated and improved over time. Takes Xanax in the AM and PM for anxiety related to her chronic pancreatitis, does not take any pancreas medications, no DM. Past History - Past Medical History Allergies/Adverse Reactions: Allergies Allergy/AdvReac Type Severity Reaction Status Date / Time ketorolac [From Toradol] Allergy Verified 06/21/19 14:25 morphine Allergy Itching Verified 06/21/19 14:25 Sulfa (Sulfonamide Allergy Verified 06/21/19 14:25 Antibiotics) Home Medications: Ambulatory Orders Alprazolam [Xanax] 1 mg PO BID 09/21/17 Citalopram Hydrobromide [Celexa -] 30 mg PO DAILY 09/21/17 Pregabalin [Lyrica] 150 mg PO HS 09/21/17 Cholecalciferol (Vitamin D3) [Vitamin D -] 1,000 unit PO DAILY 12/14/17 Polyethylene Glycol 3350 [Miralax 119 gm Btl -] 17 gm PO DAILY PRN 12/14/17 Ranitidine [Zantac -] 150 mg PO DAILY 12/14/17 Rosuvastatin Calcium 10 mg PO DAILY 12/14/17 Anemia: No Asthma: No Cancer: No Cardiac Disorders: Yes (MITRAL VALVE PROLAPSE , PALPITATIONS) CVA: No COPD: No CHF: No Dementia: No Diabetes: Yes GI Disorders: Yes (pancreatits,pancreatic divisium which failed stenting,) Disorders: No HTN: No Hypercholesterolemia: Yes (HYPERLIPIDEMIA) Liver Disease: Yes (LIVER HEMANGIOMA) Psychiatric Problems: Yes (ANXIETY) Seizures: No Thyroid Disease: Yes (HYPOTHYROIDISM W/ THYROID NODULE,HIATAL HERNIA,GASTRITIS, IBS) - Surgical History Abdominal Surgery: Yes (LAP ENDOMETRIOSIS, Pancreatic Surgery ) Appendectomy: Yes Cardiac Surgery: No Cholecystectomy: Yes (OPEN) Lung Surgery: No Neurologic Surgery: No Orthopedic Surgery: Yes (LAMENECTOMY 2004) - Immunization History Immunization Up to Date: No - Psycho Social/Smoking Cessation Hx Smoking Status: No Smoking History: Never smoked Have you smoked in the past 12 months: No Number of Cigarettes Smoked Daily: 0 If you are a former smoker, when did you quit?: 2009 Cigars Per Day: 0 Information on smoking cessation initiated: No 'Breaking Loose' booklet given: 04/15/13 Hx Alcohol Use: No Drug/Substance Use Hx: No Substance Use Type: None Hx Substance Use Treatment: No Review of Systems - Review of Systems Able to Perform ROS?: Yes Constitutional: No: Chills, Fever, Weakness HEENTM: No: Symptoms Reported Respiratory: No: Cough, Shortness of Breath, Wheezing Cardiac (ROS): Yes: Palpitations. No: Chest Pain, Edema, Irregular Heart Rate, Syncope ABD/GI: Yes: Diarrhea, Nausea. No: Constipated, Vomiting : No: Symptoms Reported Musculoskeletal: No: Symptoms Reported Integumentary: Yes: Bruising Neurological: No: Symptoms reported Endocrine: No: Symptoms Reported Hematologic/Lymphatic: No: Symptoms Reported All Other Systems: Reviewed and Negative *Physical Exam - Vital Signs Last Vital Signs Temp Pulse Resp BP Pulse Ox 97.9 F 118 H 20 112/73 99 06/21/19 14:22 06/21/19 14:22 06/21/19 14:22 06/21/19 14:22 06/21/19 14:22 - Physical Exam General Appearance: Yes: Nourished, Appropriately Dressed. No: Apparent Distress HEENT: positive: EOMI, TALAT, Normal ENT Inspection, Normal Voice, Symmetrical, Pharynx Normal, Hearing Grossly Normal. negative: Scleral Icterus (R), Scleral Icterus (L), Pharyngeal Erythema, Tonsillar Exudate, Tonsillar Erythema Neck: positive: Trachea midline, Supple. negative: Tender, Rigid, Lymphadenopathy (R), Lymphadenopathy (L), Tender lateral, Tender midline Respiratory/Chest: positive: Lungs Clear, Normal Breath Sounds. negative: Chest Tender, Respiratory Distress, Accessory Muscle Use, Crackles, Rales, Rhonchi, Stridor, Wheezing, Hyperresonant Cardiovascular: positive: Regular Rhythm, Regular Rate. negative: Murmur Gastrointestinal/Abdominal: positive: Normal Bowel Sounds, Tender (epigastric, negative Antoine's), Flat, Soft. negative: Guarding, Rebound Musculoskeletal: positive: Normal Inspection. negative: CVA Tenderness, Vertebral Tenderness Extremity: positive: Normal Capillary Refill, Normal Inspection, Normal Range of Motion, Pelvis Stable. negative: Tender Integumentary: positive: Normal Color, Dry, Warm, Bruising (multiple bruises to arms and legs). negative: Diaphoresis, Rash, Swelling Neurologic: positive: treatment specialist II-XII NML intact, Fully Oriented, Alert, Normal Mood/ Affect, Normal Response, Motor Strength 5/ ED Treatment Course - LABORATORY CBC & Chemistry Diagram: 06/21/19 15:25 06/21/19 15:25 Medical Decision Making - Medical Decision Making 06/21/19 16:46 Patient presents with epigastric pain, diarrhea, palpitations with known history of pancreatic disease and surgeries and no cardiac history. Presentation is concerning for pancreatitis vs. gastroenteritis given diarrhea. Palpitations concerning for dehydration given poor PO vs. new cardiac disease. Lower concern for SBO despite known history of multiple abdominal surgeries given has been having diarrhea. - CMP for eval lytes - CBC for eval infection - Coags for eval bleeding risk - ECG for palpitations - CP for ACS eval - CXR for cardiac eval - Zofran for nausea, 1L IVF for dehydration, Ofirmev for abdominal pain 06/21/19 16:52 Labs notable for: - CMP WNL - trop negative - CBC WNL - AST/ALT WNL - lipase 229, low concern for pancreatitis - BNP WNL - Cr 0.8 06/21/19 16:54 Discussed case with BUS CLEANER vaishali Daniels for admission to [facility] with cards consult Dr. Padron. 06/21/19 17:58 Patient refuses Toradol due to "allergy," makes her jittery. On chronic hydrocodone at home, safe to give her 1mg Dilaudid for pain. Discharge - Discharge Information Problems reviewed: Yes Clinical Impression/Diagnosis: Palpitations, Epigastric pain Condition: Stable Disposition: HOME - Admission Yes - Follow up/Referral Referrals: Joellen Smith MD [Primary Care Provider] - - Patient Discharge Instructions - Post Discharge Activity
[2019-06-21 16:09] LABS: BASO % 0.3 % (0-2.0); EOS % 0.9 % (0-4.5); HEMATOCRIT 50.3 % (32.4-45.2); HEMOGLOBIN 17.2 GM/dL (10.7-15.3); LYMPH % 18.2 % (8-40); MCH 29.8 pg (25.7-33.7); MCHC 34.3 g/dl (32.0-36.0); MEAN CELL VOLUME 87.1 fl (80-96); MEAN PLT VOLUME 6.5 fl (7.5-11.1); MONO % 8.4 % (3.8-10.2); NEUT % 72.2 % (42.8-82.8); PLATELET COUNT 346 K/MM3 (134-434); RBC 5.77 M/mm3 (3.60-5.2); RDW 12.6 % (11.6-15.6); WHITE BLOOD COUNT 9.5 K/mm3 (4.0-10.0)
[2019-06-21] MEDS ORDERED: ACETAMINOPHEN INJECTION 100 ML IVPB ONE (16:24)
[2019-06-21] MEDS ORDERED: ONDANSETRON 4 MG/2 ML VIAL ONE (16:24)
[2019-06-21 16:29] LABS: INR 1.11 (0.83-1.09); PROTHROMBIN TIME (PATIENT) 13.1 SEC (9.7-13.0)
[2019-06-21 16:32] LABS: ACTIVATED PTT 37.1 SECONDS (25.2-36.5)
[2019-06-21 16:44] LABS: ALBUMIN 4.8 g/dl (3.4-5.0); ALK PHOS 99 U/L (45-117); ANION GAP 13 MMOL/L (8-16); BILIRUBIN,TOTAL 1.3 mg/dL (0.2-1); BLOOD UREA NITROGEN 17.3 mg/dL (7-18); CALCIUM 10.5 mg/dL (8.5-10.1); CHLORIDE 102 mmol/L (98-107); CO2 23 mmol/L (21-32); CREATININE 0.8 mg/dL (0.55-1.3); GLUCOSE,RANDOM 83 mg/dL (74-106); LIPASE 229 U/L (73-393); MAGNESIUM 2.4 mg/dL (1.8-2.4); POTASSIUM 3.8 mmol/L (3.5-5.1); SGOT/AST 37 U/L (15-37); SGPT/ALT 57 U/L (13-61); SODIUM 137 mmol/L (136-145); TOT PROT 8.4 g/dl (6.4-8.2)
[2019-06-21] MEDS ORDERED: POLYETHYLENE GLYCOL 3350 119 GM BTL PO PRN (16:54)
[2019-06-21] MEDS ORDERED: KETOROLAC TROMETHAMINE 30 MG/1 ML VIAL IVPUSH ONE (17:47)
[2019-06-21] MEDS ORDERED: HYDROmorphone HCL CARPU-JECT 2 MG/1 ML DISP.SYRIN IVPUSH ONE (17:57)
[2019-06-21 18:12] LABS: EPI CELLS 4.3 /HPF (0-5/HPF); HYALINE CASTS 29 /lpf (0-8); PH,URINE 5.5 (5.0-8.0); URINE APPEARANCE CLEAR; URINE BACTERIA 28.9 /hpf (NEGATIVE); URINE BILIRUBIN NEGATIVE (NEGATIVE); URINE COLOR YELLOW; URINE GLUCOSE (UA) NEGATIVE (NEGATIVE); URINE KETONE 1+ (NEGATIVE); URINE LEUK ESTERASE 1+ (NEGATIVE); URINE NITRITE NEGATIVE (NEGATIVE); URINE PROTEIN TRACE (NEGATIVE); URINE RBC 2 /hpf (0-4); URINE UROBILINOGEN 0.2 mg/dL (0.2-1.0); URINE WBC 12 /hpf (0-5)
[2019-06-21] MEDS ORDERED: HYDROmorphone HCl 2 MG/ML VIAL ONE (18:16)
[2019-06-21] MEDS ORDERED: ALPRAZolam 1 MG TABLET ONE (22:14)
[2019-06-21] MEDS ORDERED: PREGABALIN 50 MG CAPSULE ONE (22:14)
[2019-06-21] MEDS ORDERED: PREGABALIN 100 MG CAPSULE ONE (22:15)
[2019-06-21] MEDS ORDERED: HEPARIN NA (PORCINE) 5,000 UNITS/ML 1ML VIAL ONE (22:15)
[2019-06-21] MEDS: HEPARIN NA (PORCINE) 5,000 UNITS/ML 1ML VIAL SQ SCH (22:22)
[2019-06-21] MEDS: ALPRAZolam 1 MG TABLET PO SCH (22:22)
[2019-06-21] MEDS: PREGABALIN 75 MG CAPSULE PO SCH (22:23)
[2019-06-22] MEDS ORDERED: oxyCODONE HCL 5 MG TABLET PO ONE (00:19)
[2019-06-22] MEDS ORDERED: TEMAZEPAM 15 MG CAPSULE PO ONE (01:00)
[2019-06-22 07:19] LABS: BASO % 0.3 % (0-2.0); EOS % 2.1 % (0-4.5); HEMATOCRIT 40.2 % (32.4-45.2); HEMOGLOBIN 13.9 GM/dL (10.7-15.3); LYMPH % 22.9 % (8-40); MCH 29.8 pg (25.7-33.7); MCHC 34.6 g/dl (32.0-36.0); MEAN CELL VOLUME 86.3 fl (80-96); MEAN PLT VOLUME 6.3 fl (7.5-11.1); NEUT % 64.7 % (42.8-82.8); PLATELET COUNT 215 K/MM3 (134-434); RBC 4.66 M/mm3 (3.60-5.2); RDW 12.5 % (11.6-15.6); WHITE BLOOD COUNT 6.8 K/mm3 (4.0-10.0)
[2019-06-22 07:50] LABS: ALBUMIN 3.5 g/dl (3.4-5.0); ALK PHOS 73 U/L (45-117); ANION GAP 7 MMOL/L (8-16); BILIRUBIN,TOTAL 1.1 mg/dL (0.2-1); BLOOD UREA NITROGEN 11.7 mg/dL (7-18); CALCIUM 9.1 mg/dL (8.5-10.1); CHLORIDE 109 mmol/L (98-107); CHOLESTEROL 144 mg/dL (50-200); CO2 24 mmol/L (21-32); CREATININE 0.6 mg/dL (0.55-1.3); GLUCOSE,RANDOM 76 mg/dL (74-106); HDL CHOLESTEROL 41 mg/dL (40-60); LDL CHOLESTEROL (ONLY SJRH) 88 mg/dL (5-100); MAGNESIUM 2.1 mg/dL (1.8-2.4); SGOT/AST 31 U/L (15-37); SGPT/ALT 42 U/L (13-61); SODIUM 140 mmol/L (136-145); TOT PROT 6.3 g/dl (6.4-8.2); TRIGLYCERIDES 81 mg/dL (0-150)
[2019-06-22] MEDS ORDERED: PT OWN MED DRAWER 7, Y5N ONE ×2 (08:59→09:34)
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
[2019-06-22] MEDS: HEPARIN NA (PORCINE) 5,000 UNITS/ML 1ML VIAL SQ SCH ×2 (09:29→22:02)
[2019-06-22] MEDS: ALPRAZolam 1 MG TABLET PO SCH ×2 (09:30→22:03)
[2019-06-22] MEDS: FLU VACCINE QUAD 60 MCG/0.5 ML (MDV 19-20) IM ONE ×2 (09:31→09:39)
[2019-06-22] MEDS ORDERED: CHOLECALCIFEROL (VIT D3) 1,000 UNIT (25 MCG) TABLET PO SCH (10:00)
[2019-06-22] MEDS ORDERED: ROSUVASTATIN CA 10 MG TABLET (FP) PO SCH (10:00)
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
[2019-06-22] MEDS: CITALOPRAM HYDROBROMIDE 10 MG TABLET PO SCH (13:34)
--- NOTE | 2019-06-22 13:50 | EKG ---
Test Reason : Blood Pressure : / mmHG Vent. Rate : 079 BPM Atrial Rate : 079 BPM P-R Int : 116 ms QRS Dur : 070 ms QT Int : 398 ms P-R-T Axes : 069 059 027 degrees QTc Int : 456 ms NORMAL SINUS RHYTHM NONSPECIFIC T WAVE ABNORMALITY ABNORMAL ECG WHEN COMPARED WITH ECG OF 21-JUN-2019 14:17, NON-SPECIFIC CHANGE IN ST SEGMENT IN ANTERIOR LEADS NONSPECIFIC T WAVE ABNORMALITY HAS REPLACED INVERTED T WAVES IN INFERIOR LEADS Confirmed by SAMUEL ESCALANTE MD ([id number]) on 06/22/2019 1:49:47 PM Referred By: KILEY GALVEZ DR Confirmed By:SAMUEL ESCALANTE MD
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
[2019-06-22] MEDS ORDERED: HYDROmorphone HCl 2 MG/ML VIAL IVPUSH PRN (14:00)
[2019-06-22] MEDS ORDERED: HYDROmorphone HCL CARPU-JECT 2 MG/1 ML DISP.SYRIN IVPUSH PRN (14:00)
[2019-06-22] MEDS ORDERED: LACTATED RINGERS SOLUTION 1,000 ML/1,000 ML INFUS.BAG IV SCH ×3 (14:00→20:00)
--- NOTE | 2019-06-22 14:07 | EKG ---
Test Reason : Blood Pressure : / mmHG Vent. Rate : 089 BPM Atrial Rate : 089 BPM P-R Int : 122 ms QRS Dur : 062 ms QT Int : 338 ms P-R-T Axes : 077 073 -15 degrees QTc Int : 411 ms NORMAL SINUS RHYTHM POSSIBLE LEFT ATRIAL ENLARGEMENT T WAVE ABNORMALITY, CONSIDER INFERIOR ISCHEMIA T WAVE ABNORMALITY, CONSIDER ANTERIOR ISCHEMIA ABNORMAL ECG Confirmed by SAMUEL ESCALANTE MD ([id number]) on 06/22/2019 2:07:23 PM Referred By: Confirmed By:SAMUEL ESCALANTE MD
[2019-06-22] MEDS: HYDROmorphone HCl 2 MG/ML VIAL IVPB PRN ×2 (14:14→22:03)
--- NOTE | 2019-06-22 15:42 | ECHO ---
Name: ANNEMARIEKINGA MADDEN Exam:Adult Echocardiogram Study Date: 06/22/2019 02:48 PM Age: 64 yrs Reason For Study: Palpitations MMode/2D Measurements & Calculations IVSd: 0.96 cm Ao root diam: 2.3 cm LVIDd: 3.6 cm LA dimension: 2.6 cm LVIDs: 2.4 cm ACS: 1.5 cm LVPWd: 0.96 cm EDV(Teich): 54.9 ml LVOT diam: 1.9 cm ESV(Teich): 20.6 ml LAV (MOD-bp): 39.3 ml TAPSE: 2.2 cm RV S José Antonio: 18.4 cm/sec Doppler Measurements & Calculations MV E max josé antonio: 89.2 cm/sec Ao V2 max: 141.2 cm/sec MV A max josé antonio: 100.4 cm/sec Ao max P.0 mmHg MV E/A: 0.89 Ao V2 mean: 91.4 cm/sec MV dec time: 0.21 sec Ao mean P.9 mmHg Ao V2 VTI: 27.4 cm CHARY(I,D): 2.1 cm2 CHARY(V,D): 1.8 cm2 LV V1 max P.3 mmHg SV(LVOT): 58.3 ml LV V1 mean P.5 mmHg LV V1 max: 90.7 cm/sec LV V1 mean: 54.2 cm/sec LV V1 VTI: 20.4 cm TR max josé antonio: 223.5 cm/sec PA V2 max: 82.8 cm/sec TR max P.6 mmHg PA max P.7 mmHg PA acc time: 0.13 sec Med Peak E' José Antonio: 6.6 cm/sec PA pr(Accel): 20.4 mmHg Med E/e': 13.4 Lat Peak E' José Antonio: 7.2 cm/sec Lat E/e': 12.4 Pulm Sys José Antonio: 78.1 cm/sec Pulm Ruiz José Antonio: 51.4 cm/sec Pulm S/D: 1.5 Left Ventricle Left ventricular systolic function is normal. Ejection Fraction = 55-60%. The transmitral spectral Do ppler flow pattern is suggestive of impaired LV relaxation. Right Ventricle The right ventricle is normal in size and function. Atria The left atrium is borderline dilated. Right atrial size is normal. Mitral Valve The mitral valve is normal in structure and function. There is no mitral valve stenosis. There is tra ce to mild mitral regurgitation. Tricuspid Valve The tricuspid valve is normal in structure and function. There is mild tricuspid regurgitation. Right ventricular systolic pressure is normal. Aortic Valve The aortic valve is trileaflet. No hemodynamically significant valvular aortic stenosis. No aortic regurgitation is present. Pulmonic Valve The pulmonic valve is not well seen, but is grossly normal. There is no pulmonic valvular stenosis. T here is no pulmonic valvular regurgitation. Great Vessels The aortic root is normal size. Pericardium/Pleura There is no pericardial effusion. Interpretation Summary Left ventricular systolic function is normal. Ejection Fraction = 55-60%. The transmitral spectral Doppler flow pattern is suggestive of impaired LV relaxation. The right ventricle is normal in size and function. The left atrium is borderline dilated. There is trace to mild mitral regurgitation. There is mild tricuspid regurgitation. Right ventricular systolic pressure is normal. The aortic root is normal size. There is no pericardial effusion. MD Jim *Ankush 06/22/2019 03:42 PM
[2019-06-22] MEDS: oxyCODONE HCL 5 MG TABLET PO PRN (21:14)
[2019-06-22] MEDS: PREGABALIN 75 MG CAPSULE PO SCH (22:02)
[2019-06-22] MEDS: PANTOPRAZOLE SODIUM 40 MG VIAL IVPUSH SCH (22:02)
[2019-06-23] MEDS: HYDROmorphone HCl 2 MG/ML VIAL IVPB PRN (06:45)
[2019-06-23 07:52] LABS: BASO % 0.9 % (0-2.0); EOS % 7.7 % (0-4.5); HEMATOCRIT 34.9 % (32.4-45.2); MCH 29.6 pg (25.7-33.7); MCHC 34.5 g/dl (32.0-36.0); MEAN CELL VOLUME 85.9 fl (80-96); MEAN PLT VOLUME 6.2 fl (7.5-11.1); MONO % 9.1 % (3.8-10.2); NEUT % 47.3 % (42.8-82.8); PLATELET COUNT 188 K/MM3 (134-434); RBC 4.07 M/mm3 (3.60-5.2); RDW 12.8 % (11.6-15.6); WHITE BLOOD COUNT 3.7 K/mm3 (4.0-10.0)
[2019-06-23 08:03] LABS: INR 1.13 (0.83-1.09); PROTHROMBIN TIME (PATIENT) 13.3 SEC (9.7-13.0)
[2019-06-23 09:21] LABS: ALBUMIN 3.1 g/dl (3.4-5.0); BILIRUBIN,DIRECT 0.3 mg/dL (0.0-0.2); BILIRUBIN,TOTAL 0.6 mg/dL (0.2-1); BLOOD UREA NITROGEN 4.8 mg/dL (7-18); CALCIUM 8.8 mg/dL (8.5-10.1); CREATININE 0.5 mg/dL (0.55-1.3); POTASSIUM 3.7 mmol/L (3.5-5.1); TOT PROT 5.4 g/dl (6.4-8.2)
[2019-06-23] MEDS ORDERED: PT OWN MED DRAWER 7, Y5N ONE (09:23)
[2019-06-23] MEDS: ALPRAZolam 1 MG TABLET PO SCH ×2 (09:41→22:22)
[2019-06-23] MEDS: PANTOPRAZOLE SODIUM 40 MG VIAL IVPUSH SCH ×2 (09:41→22:22)
[2019-06-23] MEDS: HEPARIN NA (PORCINE) 5,000 UNITS/ML 1ML VIAL SQ SCH ×2 (09:41→22:22)
[2019-06-23] MEDS: CITALOPRAM HYDROBROMIDE 10 MG TABLET PO SCH (09:41)
--- NOTE | 2019-06-23 12:52 | PN ---
Progress Note, Physician Chief Complaint: AWAKE ALERT EVENTS REVIEWED - Current Medication List Current Medications: Active Medications Alprazolam (Xanax) 1 mg PO BID [facility] Last Admin: 06/23/19 09:41 Dose: 1 mg Citalopram Hydrobromide (Celexa -) 30 mg PO DAILY [facility] Last Admin: 06/23/19 09:41 Dose: 30 mg Heparin Sodium (Porcine) (Heparin -) 5,000 unit SQ BID [facility] Last Admin: 06/23/19 09:41 Dose: 5,000 unit Hydromorphone HCl (Dilaudid Vial -) 1 mg IVPB Q8H PRN PRN Reason: PAIN 7-10 Last Admin: 06/23/19 06:45 Dose: 1 mg Lactated Ringer's (Lactated Ringers Solution) 1,000 ml in 1,000 mls @ 175 mls/ hr IV ASDIR [facility] Last Admin: 06/22/19 22:00 Dose: 175 mls/hr Oxycodone HCl (Roxicodone -) 5 mg PO Q6H PRN PRN Reason: PAIN LEVEL 4-6 Last Admin: 06/22/19 21:14 Dose: 5 mg Pantoprazole Sodium (Protonix Iv) 40 mg IVPUSH BID [facility] Last Admin: 06/23/19 09:41 Dose: 40 mg Pregabalin (Lyrica -) 150 mg PO [facility] Stop: 06/28/19 21:59 Last Admin: 06/22/19 22:02 Dose: Not Given - Objective Vital Signs: Vital Signs Temperature 97.6 F 06/23/19 10:00 Pulse Rate 58 L 06/23/19 10:00 Respiratory Rate 20 06/23/19 10:00 Blood Pressure 97/57 L 06/23/19 10:00 O2 Sat by Pulse Oximetry (%) 98 06/23/19 08:13 Constitutional: Yes: Mild Distress Cardiovascular: Yes: Regular Rate and Rhythm Respiratory: Yes: WNL Gastrointestinal: Yes: Soft Genitourinary: Yes: WNL Extremities: Yes: WNL Edema: No Integumentary: Yes: WNL Wound/Incision: Yes: Clean/Dry Neurological: Yes: Other Psychiatric: Yes: Other Labs: CBC, BMP 06/23/19 07:00 06/23/19 07:00 INR, PTT INR 1.13 (0.83-1.09) H 06/23/19 07:00 Problem List - Problems (1) Abnormal EKG Code(s): R94.31 - ABNORMAL ELECTROCARDIOGRAM [ECG] [EKG] (2) Epigastric pain Code(s): R10.13 - EPIGASTRIC PAIN (3) Abdominal pain, chronic, epigastric Code(s): R10.13 - EPIGASTRIC PAIN; G89.29 - OTHER CHRONIC PAIN (4) Anxiety Code(s): F41.9 - ANXIETY DISORDER, UNSPECIFIED (5) COPD (chronic obstructive pulmonary disease) Code(s): J44.9 - CHRONIC OBSTRUCTIVE PULMONARY DISEASE, UNSPECIFIED (6) Chronic pancreatitis Code(s): K86.1 - OTHER CHRONIC PANCREATITIS Qualifiers: Pancreatitis type: unspecified pancreatitis type Qualified Code(s): K86.1 - Other chronic pancreatitis (7) Depression Code(s): F32.9 - MAJOR DEPRESSIVE DISORDER, SINGLE EPISODE, UNSPECIFIED (8) Diabetes mellitus associated with pancreatic disease Code(s): E11.69 - TYPE 2 DIABETES MELLITUS WITH OTHER SPECIFIED COMPLICATION; K86.9 - DISEASE OF PANCREAS, UNSPECIFIED (9) History of partial pancreatectomy Code(s): Z90.411 - ACQUIRED PARTIAL ABSENCE OF PANCREAS Assessment/Plan CT SCAN REVIEWED GI F/U PANCREATIC PSEUDOCYST VS FLUID COLLECTION LIPASE NORMAL SPLEEN VARICES? WILL D/W GI PAIN CONTROL, PAIN MEDIICNE ORDERED OOB TO CHAIR NPO IVF TELE MONITOR NO ALARMS
--- NOTE | 2019-06-23 13:38 | PN.GI ---
GI Progress Note Subjective: GI NOte: CT reveals a possible small pseudocyst but no active inflammation. CRP 0.5. Hb drop reflects dilution given her brisk rehydration. I have told Janeth that this needs to be watched ad if it enarges she may require intervention to drain it. I advised that she followup with this with Dr Worthy at [facility] who does such procedures. NO diarrhea today. - Objective Vital Signs: Vital Signs Temperature 97.6 F 06/23/19 10:00 Pulse Rate 58 L 06/23/19 10:00 Respiratory Rate 06/23/19 10:00 Blood Pressure 97/57 L 06/23/19 10:00 O2 Sat by Pulse Oximetry (%) 98 06/23/19 08:13 Laboratory Tests 06/21/19 06/23/19 06/23/19 15:25 07:00 07:00 WBC 9.5 3.7 L Hgb 12.0 Hct 34.9 Total Bilirubin 0.6 Direct Bilirubin 0.3 H AST 31 ALT 38 Alkaline Phosphatase 63 C-Reactive Protein 0.5 H Total Amylase 68 Lipase 166 Constitutional: Anxious ...Auscultate: Yes: Normoactive Bowel Sounds, Hypoactive Bowel Sounds ...Palpate: Yes: Soft, Other (nontender today) Labs: CBC, BMP 06/23/19 07:00 06/23/19 07:00 INR, PTT INR 1.13 (0.83-1.09) H 06/23/19 07:00 Assessment/Plan Assessment: - Resolved pain, N/V and diarrhea, Possible pseudocyst. - Diarrhea resolved - Personal h/o colon and gastric polyps, diverticulosis, peptic ulcer, IBS Plan: -- Clear liquids. Advance as tolerated -- Decrease Ringer's lactate rehydration -- Stop Dilaudid IVPB -- Pain management consultation for narcotic dependence management -- Janeth will do followup of her possible pseudocyst with Dr Worthy at [facility] Problem List - Problems (1) Chronic pancreatitis Code(s): K86.1 - OTHER CHRONIC PANCREATITIS Qualifiers: Pancreatitis type: unspecified pancreatitis type Qualified Code(s): K86.1 - Other chronic pancreatitis (2) Abdominal pain, chronic, epigastric Code(s): R10.13 - EPIGASTRIC PAIN; G89.29 - OTHER CHRONIC PAIN (3) Anxiety Code(s): F41.9 - ANXIETY DISORDER, UNSPECIFIED (4) Diabetes mellitus associated with pancreatic disease Code(s): E11.69 - TYPE 2 DIABETES MELLITUS WITH OTHER SPECIFIED COMPLICATION; K86.9 - DISEASE OF PANCREAS, UNSPECIFIED (5) Diverticula of colon Code(s): K57.30 - DVRTCLOS OF LG INT W/O PERFORATION OR ABSCESS W/O BLEEDING (6) Endometriosis Code(s): N80.9 - ENDOMETRIOSIS, UNSPECIFIED (7) Hemangioma of liver Code(s): D18.03 - HEMANGIOMA OF INTRA-ABDOMINAL STRUCTURES (8) History of Clostridium difficile colitis Code(s): Z86.19 - PERSONAL HISTORY OF OTHER INFECTIOUS AND PARASITIC DISEASES (9) History of cholecystectomy Code(s): Z90.49 - ACQUIRED ABSENCE OF OTHER SPECIFIED PARTS OF DIGESTIVE TRACT (10) History of partial pancreatectomy Code(s): Z90.411 - ACQUIRED PARTIAL ABSENCE OF PANCREAS (11) History of peptic ulcer disease Code(s): Z87.11 - PERSONAL HISTORY OF PEPTIC ULCER DISEASE (12) Hx of colonoscopy with polypectomy Code(s): Z98.89 - OTHER SPECIFIED POSTPROCEDURAL STATES * DO NOT USE * (13) Irritable bowel syndrome (IBS) Code(s): K58.9 - IRRITABLE BOWEL SYNDROME WITHOUT DIARRHEA Qualifiers: Irritable bowel syndrome type: with diarrhea Qualified Code(s): K58.0 - Irritable bowel syndrome with diarrhea (14) Nausea & vomiting Code(s): R11.2 - NAUSEA WITH VOMITING, UNSPECIFIED (15) Opioid dependence Code(s): F11.20 - OPIOID DEPENDENCE, UNCOMPLICATED (16) Pancreas divisum Code(s): Q45.3 - OTH CONGENITAL MALFORMATIONS OF PANCREAS AND PANCREATIC DUCT (17) Palpitations Code(s): R00.2 - PALPITATIONS (18) Dehydration Code(s): E86.0 - DEHYDRATION
[2019-06-23] MEDS ORDERED: LACTATED RINGERS SOLUTION 1,000 ML/1,000 ML INFUS.BAG IV SCH (13:40)
[2019-06-23] MEDS: oxyCODONE HCL 5 MG TABLET PO PRN ×2 (16:05→22:22)
--- NOTE | 2019-06-23 16:13 | PN ---
Progress Note, Physician Chief Complaint: Palpitations History of Present Illness: This is a 64F with PMH pancreatic divisum s/p 3x surgeries including cholecystectomy, chronic pancreatitis, presents with 3 days of intermittent palpitations, epigastric/abdominal pain, and nausea and diarrhea. Patient was recently admitted to [facility] for similar symptoms which resolved after IV hydration. Nunnelly okay for a few days after discharge but then 3 days ago began having epigastric pain, nausea, non-bloody diarrhea, poor PO intake. She last took hydrocodone for pain about 1 month ago. Started to feel palpitations with a rapid Heart beating in her chest. After getting IVF in ER symptoms improved. ECG NSR with nonspecific ST T changes. was told she has mitral valve prolapse. Telemetry NSR no arrhythmia. Echocardiogram 06/22/2019 Normal LV function Prolonged diastolic relaxation Trace MR Mild TR 06/23/2019 No current symptoms of palpitations. - Current Medication List Current Medications: Active Medications Alprazolam (Xanax) 1 mg PO BID [facility] [place] Last Admin: 06/23/19 09:41 Dose: 1 mg Citalopram Hydrobromide (Celexa -) 30 mg PO DAILY [facility] [place] Last Admin: 06/23/19 09:41 Dose: 30 mg Heparin Sodium (Porcine) (Heparin -) 5,000 unit SQ BID [facility] [place] Last Admin: 06/23/19 09:41 Dose: 5,000 unit Lactated Ringer's (Lactated Ringers Solution) 1,000 ml in 1,000 mls @ 125 mls/ hr IV ASDIR [facility] [place] Oxycodone HCl (Roxicodone -) 5 mg PO Q6H PRN PRN Reason: PAIN LEVEL 4-6 Last Admin: 06/22/19 21:14 Dose: 5 mg Pantoprazole Sodium (Protonix Iv) 40 mg IVPUSH BID [facility] [place] Last Admin: 06/23/19 09:41 Dose: 40 mg Pregabalin (Lyrica -) 150 mg PO HS [facility] [place] Stop: 06/28/19 21:59 Last Admin: 06/22/19 22:02 Dose: Not Given - Objective Vital Signs: Vital Signs Temperature 98 F 06/23/19 14:00 Pulse Rate 55 L 06/23/19 14:00 Respiratory Rate 20 06/23/19 14:00 Blood Pressure 124/70 06/23/19 14:00 O2 Sat by Pulse Oximetry (%) 98 06/23/19 08:13 Constitutional: Yes: No Distress Eyes: Yes: WNL HENT: Yes: WNL Neck: Yes: WNL Cardiovascular: Yes: Regular Rate and Rhythm, S1, S2 Respiratory: Yes: CTA Bilaterally Gastrointestinal: Yes: Soft Extremities: Yes: WNL Neurological: Yes: Alert, Oriented Labs: CBC, BMP 06/23/19 07:00 06/23/19 07:00 INR, PTT INR 1.13 (0.83-1.09) H 06/23/19 07:00 Assessment/Plan 64F with PMH pancreatic divisum s/p 3x surgeries including cholecystectomy, chronic pancreatitis, presents with 3 days of intermittent palpitations, epigastric/abdominal pain, poor PO intake and nausea and diarrhea. Started to feel palpitations with a rapid Heart beating in her chest. After getting IVF in ER symptoms improved. ECG NSR with nonspecific ST T changes. was told she has mitral valve prolapse. Telemetry NSR no arrhythmia. Possibly due to poor intake and intravascular volume depletion. symptoms improved after hydration. no signs of heart failure. ECG changes are non- specific and less likely due to cardiac disease. Monitor on telemetry IV fluid Echocardiogram 06/22/2019 Normal LV function Prolonged diastolic relaxation Trace MR Mild TR 06/23/2019 No current palpitations
[2019-06-23] MEDS: PREGABALIN 75 MG CAPSULE PO SCH (22:23)
[2019-06-24] MEDS: oxyCODONE HCL 5 MG TABLET PO PRN (06:00)
[2019-06-24 06:28] LABS: BASO % 0.9 % (0-2.0); EOS % 6.1 % (0-4.5); HEMOGLOBIN 12.6 GM/dL (10.7-15.3); LYMPH % 33.8 % (8-40); MCH 30.3 pg (25.7-33.7); MCHC 35.1 g/dl (32.0-36.0); MEAN CELL VOLUME 86.2 fl (80-96); MEAN PLT VOLUME 6.4 fl (7.5-11.1); MONO % 9.9 % (3.8-10.2); NEUT % 49.3 % (42.8-82.8); PLATELET COUNT 207 K/MM3 (134-434); RBC 4.17 M/mm3 (3.60-5.2); RDW 12.5 % (11.6-15.6); WHITE BLOOD COUNT 4.4 K/mm3 (4.0-10.0)
[2019-06-24 06:54] LABS: ALBUMIN 3.1 g/dl (3.4-5.0); BILIRUBIN,TOTAL 0.5 mg/dL (0.2-1); CALCIUM 8.6 mg/dL (8.5-10.1); CREATININE 0.5 mg/dL (0.55-1.3); POTASSIUM 3.7 mmol/L (3.5-5.1); TOT PROT 5.6 g/dl (6.4-8.2)
[2019-06-24 06:58] LABS: BLOOD UREA NITROGEN 2.6 mg/dL (7-18)
[2019-06-24] MEDS: PANTOPRAZOLE SODIUM 40 MG VIAL IVPUSH SCH (10:31)
--- NOTE | 2019-06-24 10:31 | DS ---
Physical Examination Vital Signs: Vital Signs Temperature 97.4 F L 06/24/19 01:53 Pulse Rate 62 06/24/19 06:01 Respiratory Rate 20 06/24/19 09:00 Blood Pressure 140/61 06/24/19 06:01 O2 Sat by Pulse Oximetry (%) 99 06/24/19 09:00 Findings/Remarks: AWAKE ALERT DIAGNOSIS PANCREATIC CYST CAN F/U OUTPATIENT PER GI Constitutional: Yes: No Distress Cardiovascular: Yes: Regular Rate and Rhythm Respiratory: Yes: WNL Gastrointestinal: Yes: WNL Labs: CBC, BMP 06/24/19 05:45 06/24/19 05:45 Discharge Summary Problems reviewed: Yes Reason For Visit: CHRONIC PANCREATITIS, EPIGASTRIC PAIN Current Active Problems Abnormal EKG (Acute) Epigastric pain (Acute) Palpitations (Acute) Procedures: Principal: CT SCAN Hospital Course: ADMITTED FOR ABDOMINAL PAIN, WORKUP SHOWS PANCREATIC CYST WILL F/U OUTPATIENT Goals: SEE YOUR GI SPECIALIST AT [facility] FOR PANCREATIC CYST WORKUP Condition: Stable - Instructions Diet, Activity, Other Instructions: FOLLOW UP WITH YOUR PRIMARY DOCTOR IN 1-2 WEEKS Referrals: Joellen Smith MD [Primary Care Provider] - Disposition: HOME - Home Medications Comprehensive Discharge Medication List: Ambulatory Orders Rosuvastatin Calcium 10 mg PO DAILY 12/14/17 Lorazepam [Ativan] 1 mg PO DAILY 06/21/19 Temazepam [Restoril -] 30 mg PO HS 06/21/19
[2019-06-24] MEDS: ALPRAZolam 1 MG TABLET PO SCH (10:32)
[2019-06-24] MEDS: CITALOPRAM HYDROBROMIDE 10 MG TABLET PO SCH (10:32)
[2019-06-24] MEDS: HEPARIN NA (PORCINE) 5,000 UNITS/ML 1ML VIAL SQ SCH (10:33)
[2019-06-24 11:59] VITALS: BP 99/69; PULSE 68; TEMP 97.9
[2019-06-25 22:08] LABS: HEP B CORE AB, TOT Negative (Negative)
== END 2019-06-24 14:39 | disposition home or self-care (01) | DRG 439 ==
LOC: JER 14:08 → JERBED 16:08 → J4W 23:34
PROVIDERS: ADMIT Family Medicine; ATTEND Family Medicine
DX: K86.2 Cyst of pancreas (principal); Q45.3 Other congenital malformations of pancreas and pancreatic duct; R00.2 Palpitations; F41.8 Other specified anxiety disorders; E11.69 Type 2 diabetes mellitus with other specified complication; K58.9 Irritable bowel syndrome, unspecified; R11.2 Nausea with vomiting, unspecified; E86.0 Dehydration; R10.13 Epigastric pain
CPT/HCPCS: 36415; 71046-TC-FY; 74177-TC; 80048; 80053; 80061; 80076; 81003; 82150; 82550; 83516; 83690; 83721; 83735; 83880; 84443; 84484; 85025; 85610; 85730; 86140; 86704; 86706; 86707; 86708; 86709; 86803; 87086; 87340; 93005; 93010; 93306-TC; 99284-25; J0131; J1644; Q2036; Q9967

== ENCOUNTER 2020-01-23 05:01 | Day surgery (SDC) | payer OTHER, MEDICARE ==
[2020-01-23 08:30] VITALS: TEMP 97.8; BMI 18.8
[2020-01-23 10:50] VITALS: BP 123/67; PULSE 57
--- NOTE | 2020-01-24 17:36 | PATH ---
Surgical Pathology Report Patient Name: KINGA MADRIGAL [facility]. Rec. #: [id number] /Age/Gender: 1955 (Age: 64) / F Account: [id number] Location: U-ENDOSCOPY Taken: 01/23/2020 Received: 01/23/2020 Reported: 01/24/2020 Physicians: Bandar Dejesus M.D. Specimen(s) Received A: POLYP RECTUM B: POLYP SIGMOID C: POLYP CECAL Clinical History GI bleeding, weight loss Postoperative diagnosis: Colon polyps Final Diagnosis A. RECTUM, POLYPS, BIOPSY: HYPERPLASTIC POLYP(S). B. SIGMOID COLON, POLYP, BIOPSY: HYPERPLASTIC POLYP. C. CECAL POLYP, BIOPSY: POLYPOID COLONIC MUCOSA WITHOUT SIGNIFICANT PATHOLOGIC FINDINGS. Electronically Signed Argelia Villasenor M.D. Gross Description A. Received in formalin, labeled "polyps rectum" are 3 pantoja, irregular portions of soft tissue measuring 0.2 cm. in greatest dimension. The specimens are submitted in toto in one cassette. B. Received in formalin, labeled "polyp sigmoid" are 4 pantoja, irregular portions of soft tissue measuring 0.2-0.4 cm. in greatest dimension. The specimens are submitted in toto in one cassette. C. Received in formalin, labeled "polyp cecal" are 2 pantoja, irregular portions of soft tissue measuring 0.1 and 0.5 cm. in greatest dimension. The specimens are submitted in toto in one cassette. MLSZ/01/23/2020 sanml/01/23/2020
== END 2020-01-23 10:58 | disposition home or self-care (01) ==
LOC: JASU-ENDO 05:01
PROVIDERS: ATTEND Internal Medicine Gastroenterology
PROC: 0DBN8ZX Excision of Sigmoid Colon, Via Natural or Artificial Opening Endoscopic, Diagnostic (ICD-10-PCS; 2020-01-23)
PROC: 0DBP8ZX Excision of Rectum, Via Natural or Artificial Opening Endoscopic, Diagnostic (ICD-10-PCS; 2020-01-23)
PROC: 0DBH8ZX Excision of Cecum, Via Natural or Artificial Opening Endoscopic, Diagnostic (ICD-10-PCS; principal; 2020-01-23 09:00)
DX: K92.1 Melena (principal); K62.1 Rectal polyp; K64.8 Other hemorrhoids; K63.89 Other specified diseases of intestine; D12.0 Benign neoplasm of cecum; D12.5 Benign neoplasm of sigmoid colon
CPT/HCPCS: 88305-TC

== ENCOUNTER 2020-08-07 11:36 | Emergency (ER) | payer OTHER, MEDICARE ==
[2020-08-07 11:42] VITALS: BMI 20.7
[2020-08-07] MEDS ORDERED: METOCLOPRAMIDE HCL INJECTION 10 MG/2 ML VIAL IVPB ONE (12:46)
[2020-08-07] MEDS ORDERED: LACTATED RINGERS SOLUTION 1000 ML INFUS.BAG IV ONE (13:10)
[2020-08-07] MEDS ORDERED: METOCLOPRAMIDE HCL INJECTION 10 MG/2 ML VIAL ONE (13:12)
[2020-08-07 13:20] LABS: BASO % 0.2 % (0-2.0); EOS % 0.5 % (0-4.5); HEMOGLOBIN 14.8 GM/dL (10.7-15.3); LYMPH % 20.2 % (8-40); MCH 31.2 pg (25.7-33.7); MCHC 34.4 g/dl (32.0-36.0); MEAN CELL VOLUME 90.8 fl (80-96); MONO % 15.7 % (3.8-10.2); NEUT % 63.4 % (42.8-82.8); PLATELET COUNT 200 K/MM3 (134-434); RBC 4.73 M/mm3 (3.60-5.2); RDW 13.6 % (11.6-15.6); WHITE BLOOD COUNT 4.3 K/mm3 (4.0-10.0)
[2020-08-07] MEDS ORDERED: ACETAMINOPHEN 1000 MG/100 ML VIAL (NON FORMULARY) IVPB ONE (13:36)
[2020-08-07 13:53] LABS: ALBUMIN 3.8 g/dl (3.4-5.0); BILIRUBIN,TOTAL 0.4 mg/dL (0.2-1); CREATININE 0.6 mg/dL (0.55-1.3); GLUCOSE,RANDOM 93 mg/dL (74-106); LIPASE 83 U/L (73-393); SGOT/AST 41 U/L (15-37); TOT PROT 7.1 g/dl (6.4-8.2)
[2020-08-07 13:54] LABS: ALK PHOS 79 U/L (45-117); SGPT/ALT 44 U/L (13-61)
[2020-08-07 13:55] LABS: CHLORIDE 102 mmol/L (98-107); POTASSIUM 3.9 mmol/L (3.5-5.1); SODIUM 137 mmol/L (136-145)
[2020-08-07 13:56] LABS: ANION GAP 6 MMOL/L (8-16); CALCIUM 9.9 mg/dL (8.5-10.1); CO2 29 mmol/L (21-32)
[2020-08-07] MEDS ORDERED: ACETAMINOPHEN INJECTION 100 ML IVPB ONE (14:23)
[2020-08-07] MEDS ORDERED: FAMOTIDINE 20 MG/50 ML IVPB 20 MG/50 ML MG IVPB ONE (14:54)
[2020-08-07] MEDS ORDERED: MAG HYDROX/AL HYDROX/SIMETH -MYLANTA- ORAL SUSPENSION PO ONE (14:54)
[2020-08-07] MEDS ORDERED: MAG HYDROX/AL HYDROX/SIMETH 30 ML UNIT-DOSE CUP ONE (15:24)
[2020-08-07 17:24] VITALS: BP 122/73; PULSE 64; TEMP 98.9
== END 2020-08-07 17:23 | disposition home or self-care (01) ==
LOC: JER 11:36
PROC: 3E0333Z Introduction of Anti-inflammatory into Peripheral Vein, Percutaneous Approach (ICD-10-PCS; principal; 2020-08-07)
PROC: 3E033GC Introduction of Other Therapeutic Substance into Peripheral Vein, Percutaneous Approach (ICD-10-PCS; 2020-08-07)
PROC: 3E033GC Introduction of Other Therapeutic Substance into Peripheral Vein, Percutaneous Approach (ICD-10-PCS; 2020-08-07)
DX: R51.9 Headache, unspecified (principal); R10.9 Unspecified abdominal pain; R11.0 Nausea
CPT/HCPCS: 36415; 71045-TC-FY; 80053; 83605; 83690; 84484; 85025; 93005; 93010; 99285-25; C9803; J0131; U0003

== ENCOUNTER 2020-08-19 13:02 | Inpatient (IN) | payer OTHER, MEDICARE ==
[2020-08-19] MEDS ORDERED: MECLIZINE HCL 25 MG TABLET (FP) PO ONE (13:51)
[2020-08-19] MEDS ORDERED: ONDANSETRON *ODT* 4 MG TABLET SL ONE (13:51)
[2020-08-19] MEDS ORDERED: SODIUM CHLORIDE 0.9% 1000 ML INFUS.BAG IV ONE (13:52)
[2020-08-19] MEDS ORDERED: MECLIZINE HCL 25 MG TABLET (FP) ONE (14:30)
[2020-08-19] MEDS ORDERED: ONDANSETRON *ODT* 4 MG TABLET ONE (14:31)
[2020-08-19 15:16] LABS: BASO % 0.7 % (0-2.0); EOS % 1.4 % (0-4.5); HEMATOCRIT 38.7 % (32.4-45.2); HEMOGLOBIN 13.1 GM/dL (10.7-15.3); MCH 30.8 pg (25.7-33.7); MCHC 33.9 g/dl (32.0-36.0); MEAN CELL VOLUME 90.9 fl (80-96); MEAN PLT VOLUME 6.9 fl (7.5-11.1); MONO % 10.9 % (3.8-10.2); PLATELET COUNT 256 K/MM3 (134-434); RBC 4.26 M/mm3 (3.60-5.2); RDW 13.1 % (11.6-15.6); WHITE BLOOD COUNT 5.2 K/mm3 (4.0-10.0)
[2020-08-19] MEDS ORDERED: diazePAM 5 MG TABLET PO ONE (15:28)
[2020-08-19] MEDS ORDERED: diazePAM 5 MG TABLET ONE (15:31)
[2020-08-19 15:43] LABS: CHLORIDE 102 mmol/L (98-107); POTASSIUM 4.1 mmol/L (3.5-5.1); SODIUM 137 mmol/L (136-145)
[2020-08-19 15:45] LABS: CALCIUM 9.6 mg/dL (8.5-10.1)
[2020-08-19 15:46] LABS: ALBUMIN 3.8 g/dl (3.4-5.0); ANION GAP 3 MMOL/L (8-16); BLOOD UREA NITROGEN 16.9 mg/dL (7-18); CO2 32 mmol/L (21-32); GLUCOSE,RANDOM 85 mg/dL (74-106)
[2020-08-19 15:49] LABS: CREATININE 0.6 mg/dL (0.55-1.3); SGOT/AST 37 U/L (15-37); SGPT/ALT 40 U/L (13-61)
[2020-08-19 15:50] LABS: BILIRUBIN,TOTAL 0.6 mg/dL (0.2-1)
[2020-08-19 15:51] LABS: TOT PROT 6.9 g/dl (6.4-8.2)
[2020-08-19 15:52] LABS: ALK PHOS 92 U/L (45-117)
[2020-08-19] MEDS ORDERED: PANTOPRAZOLE 40 MG TABLET ONE (21:14)
[2020-08-19] MEDS: PANTOPRAZOLE 40 MG TABLET PO SCH (21:42)
[2020-08-19] MEDS: INSULIN SLIDING SCALE (NOVOLOG) 1 VIAL SQ SCH (21:42)
[2020-08-20] MEDS ORDERED: MECLIZINE HCL 25 MG TABLET (FP) PO ONE (00:30)
[2020-08-20] MEDS: SODIUM CHLORIDE 1,000 ML IV SCH ×2 (01:03→21:26)
[2020-08-20] MEDS ORDERED: oxyCODONE HCL 5 MG TABLET PO ONE (03:00)
[2020-08-20] MEDS: INSULIN SLIDING SCALE (NOVOLOG) 1 VIAL SQ SCH ×4 (06:12→21:26)
[2020-08-20] MEDS: LIPASE/PROTEASE/AMYLASE 36,000 UNIT CAPSULE PO SCH ×3 (08:15→17:34)
[2020-08-20 08:53] LABS: BASO % 0.5 % (0-2.0); EOS % 2.6 % (0-4.5); HEMATOCRIT 38.6 % (32.4-45.2); HEMOGLOBIN 13.3 GM/dL (10.7-15.3); LYMPH % 26.8 % (8-40); MCH 31.6 pg (25.7-33.7); MCHC 34.5 g/dl (32.0-36.0); MEAN CELL VOLUME 91.5 fl (80-96); MEAN PLT VOLUME 6.9 fl (7.5-11.1); MONO % 11.4 % (3.8-10.2); NEUT % 58.7 % (42.8-82.8); PLATELET COUNT 240 K/MM3 (134-434); RBC 4.22 M/mm3 (3.60-5.2); RDW 13.2 % (11.6-15.6); WHITE BLOOD COUNT 4.1 K/mm3 (4.0-10.0)
[2020-08-20] MEDS ORDERED: PATIENT'S OWN MEDICATION (NON-FORMULARY) (Oxycodone Hcl [Oxycodone Hcl] 10 MG Tablet) PO PRN (09:08)
[2020-08-20 09:17] LABS: POTASSIUM 4.2 mmol/L (3.5-5.1)
[2020-08-20 09:44] LABS: PH,URINE 7.5 (5.0-8.0); URINE APPEARANCE CLEAR; URINE BILIRUBIN NEGATIVE (NEGATIVE); URINE COLOR YELLOW; URINE GLUCOSE (UA) NEGATIVE (NEGATIVE); URINE KETONE NEGATIVE (NEGATIVE); URINE LEUK ESTERASE NEGATIVE (NEGATIVE); URINE NITRITE NEGATIVE (NEGATIVE); URINE PROTEIN NEGATIVE (NEGATIVE)
[2020-08-20] MEDS ORDERED: ALPRAZolam 1 MG TABLET PO SCH (10:00)
[2020-08-20] MEDS ORDERED: ENOXAPARIN NA (PORCINE) 30 MG/0.3 ML DISP.SYRIN SQ SCH (10:00)
[2020-08-20] MEDS ORDERED: PANTOPRAZOLE 40 MG TABLET PO SCH (10:00)
[2020-08-20] MEDS ORDERED: PT OWN MED DRAWER 7, Y5N ONE (10:02)
[2020-08-20 10:09] LABS: ALBUMIN 3.4 g/dl (3.4-5.0); CALCIUM 8.8 mg/dL (8.5-10.1)
[2020-08-20 10:10] LABS: BLOOD UREA NITROGEN 9.1 mg/dL (7-18)
[2020-08-20 10:12] LABS: CREATININE 0.6 mg/dL (0.55-1.3); MAGNESIUM 2.3 mg/dL (1.8-2.4); PHOSPHOROUS 3.4 mg/dL (2.5-4.9)
[2020-08-20 10:14] LABS: BILIRUBIN,TOTAL 0.8 mg/dL (0.2-1)
[2020-08-20 10:15] LABS: TOT PROT 6.5 g/dl (6.4-8.2)
[2020-08-20] MEDS: ENOXAPARIN NA (PORCINE) 40 MG/0.4 ML DISP.SYRIN SQ SCH (12:14)
[2020-08-20] MEDS: PANTOPRAZOLE 40 MG TABLET PO SCH (12:14)
[2020-08-20] MEDS ORDERED: INSULIN (NOVOLOG) ASPART 100 UNITS/ML 10ML VIAL ONE (12:28)
[2020-08-20] MEDS: MECLIZINE HCL 25 MG TABLET (FP) PO PRN ×2 (14:45→21:25)
[2020-08-20] MEDS: CITALOPRAM HYDROBROMIDE 20 MG TABLET PO SCH (14:45)
[2020-08-20] MEDS: ONDANSETRON 4 MG/2 ML VIAL IVPUSH PRN (14:46)
[2020-08-20] MEDS: ROSUVASTATIN CA 10 MG TABLET (FP) PO SCH (21:25)
[2020-08-20] MEDS: ALPRAZolam 1 MG TABLET PO SCH (21:25)
[2020-08-20] MEDS ORDERED: TEMAZEPAM 15 MG CAPSULE PO SCH (22:00)
[2020-08-21] MEDS: PREGABALIN 75 MG CAPSULE PO SCH ×2 (06:48→07:07)
[2020-08-21] MEDS: INSULIN SLIDING SCALE (NOVOLOG) 1 VIAL SQ SCH (07:07)
[2020-08-21] MEDS: CITALOPRAM HYDROBROMIDE 20 MG TABLET PO SCH (08:59)
[2020-08-21] MEDS: ALPRAZolam 1 MG TABLET PO SCH (08:59)
[2020-08-21] MEDS: ENOXAPARIN NA (PORCINE) 40 MG/0.4 ML DISP.SYRIN SQ SCH (09:00)
[2020-08-21] MEDS: MECLIZINE HCL 25 MG TABLET (FP) PO PRN ×2 (09:00→21:57)
[2020-08-21] MEDS: PANTOPRAZOLE 40 MG TABLET PO SCH (09:00)
[2020-08-21] MEDS: ACETAMINOPHEN 325 MG TABLET (FP) PO PRN ×2 (09:00→18:49)
[2020-08-21] MEDS: LIPASE/PROTEASE/AMYLASE 36,000 UNIT CAPSULE PO SCH ×4 (09:04→17:01)
[2020-08-21] MEDS: SODIUM CHLORIDE 1,000 ML IV SCH (11:00)
[2020-08-21] MEDS ORDERED: ALPRAZolam 1 MG TABLET PO PRN (14:16)
[2020-08-21] MEDS: ONDANSETRON 4 MG/2 ML VIAL IVPUSH PRN (17:01)
[2020-08-21] MEDS ORDERED: PT OWN MED DRAWER 7, Y5N ONE (18:22)
[2020-08-21] MEDS: oxyCODONE HCL 5 MG TABLET PO PRN (18:48)
[2020-08-21] MEDS: ROSUVASTATIN CA 10 MG TABLET (FP) PO SCH (21:57)
[2020-08-21] MEDS ORDERED: TEMAZEPAM 15 MG CAPSULE PO SCH (22:00)
[2020-08-22] MEDS: PREGABALIN 75 MG CAPSULE PO SCH (06:18)
[2020-08-22 08:01] LABS: BASO % 0.4 % (0-2.0); EOS % 2.2 % (0-4.5); HEMATOCRIT 36.8 % (32.4-45.2); HEMOGLOBIN 12.8 GM/dL (10.7-15.3); LYMPH % 15.8 % (8-40); MCHC 34.8 g/dl (32.0-36.0); MEAN CELL VOLUME 89.2 fl (80-96); MONO % 9.8 % (3.8-10.2); NEUT % 71.8 % (42.8-82.8); PLATELET COUNT 232 K/MM3 (134-434); RBC 4.12 M/mm3 (3.60-5.2); RDW 13.1 % (11.6-15.6); WHITE BLOOD COUNT 5.7 K/mm3 (4.0-10.0)
[2020-08-22 08:18] LABS: POTASSIUM 3.5 mmol/L (3.5-5.1)
[2020-08-22 08:54] LABS: CALCIUM 8.7 mg/dL (8.5-10.1)
[2020-08-22 08:55] LABS: BLOOD UREA NITROGEN 7.5 mg/dL (7-18)
[2020-08-22 08:59] LABS: CREATININE 0.5 mg/dL (0.55-1.3)
[2020-08-22 09:00] LABS: TOT PROT 5.7 g/dl (6.4-8.2)
[2020-08-22 09:09] LABS: BILIRUBIN,TOTAL 0.4 mg/dL (0.2-1)
[2020-08-22] MEDS: CITALOPRAM HYDROBROMIDE 20 MG TABLET PO SCH (09:58)
[2020-08-22] MEDS: LIPASE/PROTEASE/AMYLASE 36,000 UNIT CAPSULE PO SCH ×2 (09:58→12:42)
[2020-08-22] MEDS: PANTOPRAZOLE 40 MG TABLET PO SCH (09:59)
[2020-08-22] MEDS: ENOXAPARIN NA (PORCINE) 40 MG/0.4 ML DISP.SYRIN SQ SCH (09:59)
[2020-08-22] MEDS: oxyCODONE HCL 5 MG TABLET PO PRN (10:02)
[2020-08-22 12:36] VITALS: BMI 23.0
[2020-08-22] MEDS: MECLIZINE HCL 25 MG TABLET (FP) PO PRN (12:47)
[2020-08-22 13:39] VITALS: BP 131/64; PULSE 76; TEMP 98.2
[2020-08-23] MEDS ORDERED: MULTIVIT-MINERALS ORAL LIQUID PO SCH (10:00)
== END 2020-08-22 15:50 | disposition home or self-care (01) | DRG 149 ==
LOC: JER 13:02 → JERBED 18:25 → J5S 08-20 02:49 → J4W 08-21 15:09
PROVIDERS: ADMIT Internal Medicine; ATTEND Family Medicine
DX: R42 Dizziness and giddiness (principal); K86.1 Other chronic pancreatitis; K86.2 Cyst of pancreas; F11.20 Opioid dependence, uncomplicated; E11.9 Type 2 diabetes mellitus without complications; E78.5 Hyperlipidemia, unspecified; I95.1 Orthostatic hypotension; F32.9 Major depressive disorder, single episode, unspecified; F41.9 Anxiety disorder, unspecified; R19.7 Diarrhea, unspecified; R26.2 Difficulty in walking, not elsewhere classified
CPT/HCPCS: 36415; 70450-TC; 70551-TC; 71045-TC-FY; 76705-TC; 80053; 81003; 82550; 82962; 83036; 83735; 84100; 84484; 84586; 85025; 87045; 87046; 87086; 87177; 87205; 87209; 87324; 87449; 93005; 93010; 97116-GP; 97161-GP; 99285-25; C9803; Q0162; U0003

== ENCOUNTER 2021-01-11 12:03 | Emergency (ER) | payer OTHER, MEDICARE ==
[2021-01-11 12:35] VITALS: BP 117/72; PULSE 67; TEMP 98; BMI 21.7
== END 2021-01-11 13:29 | disposition home or self-care (01) ==
LOC: JERFT 12:03
DX: M25.561 Pain in right knee (principal)
CPT/HCPCS: 99283-25

== ENCOUNTER 2022-03-18 14:18 | Inpatient (IN) | payer OTHER, MEDICARE ==
[2022-03-18] MEDS ORDERED: SODIUM CHLORIDE 1,000 ML IV STA (17:05)
[2022-03-18] MEDS ORDERED: FAMOTIDINE 20 MG/50 ML IVPB 20 MG/50 ML MG IVPB ONE ×2 (17:05→17:29)
[2022-03-18] MEDS ORDERED: MAG HYDROX/AL HYDROX/SIMETH 30 ML UNIT-DOSE CUP PO ONE (17:05)
[2022-03-18] MEDS ORDERED: ACETAMINOPHEN 1000 MG/100 ML BAG IVPB ONE (17:05)
[2022-03-18] MEDS ORDERED: ONDANSETRON 4 MG/2 ML VIAL IVPUSH ONE (17:05)
[2022-03-18] MEDS ORDERED: MAG HYDROX/AL HYDROX/SIMETH 30 ML UNIT-DOSE CUP ONE (17:29)
[2022-03-18] MEDS ORDERED: ONDANSETRON 4 MG/2 ML VIAL ONE (17:29)
[2022-03-18] MEDS ORDERED: ACETAMINOPHEN INJECTION 100 ML IVPB ONE (17:29)
[2022-03-18 17:49] LABS: BASO % 0.4 % (0-2.0); HEMATOCRIT 48.7 % (32.4-45.2); HEMOGLOBIN 16.5 GM/dL (10.7-15.3); LYMPH % 20.6 % (8-40); MCH 30.1 pg (25.7-33.7); MCHC 33.9 g/dl (32.0-36.0); MEAN PLT VOLUME 5.4 fl (7.5-11.1); MONO % 7.3 % (3.8-10.2); NEUT % 70.7 % (42.8-82.8); PLATELET COUNT 282 10^3/uL (134-434); RBC 5.48 M/mm3 (3.60-5.2); RDW 14.9 % (11.6-15.6); WHITE BLOOD COUNT 7.4 K/mm3 (4.0-10.0)
[2022-03-18 17:55] LABS: INR 1.09 (0.83-1.09); PROTHROMBIN TIME (PATIENT) 12.6 SEC (9.7-13.0)
[2022-03-18 17:57] LABS: ACTIVATED PTT 38.5 SECONDS (25.2-36.5)
[2022-03-18 18:17] LABS: BLOOD UREA NITROGEN 12.6 mg/dL (7-18)
[2022-03-18 18:21] LABS: CREATININE 0.8 mg/dL (0.55-1.3)
[2022-03-18 18:22] LABS: BILIRUBIN,TOTAL 1.1 mg/dL (0.2-1); TOT PROT 7.7 g/dl (6.4-8.2)
[2022-03-18] MEDS ORDERED: LACTATED RINGERS SOLUTION 1000 ML INFUS.BAG IV ONE (18:26)
[2022-03-18] MEDS ORDERED: HYDROmorphone HCL CARPU-JECT 2 MG/1 ML DISP.SYRIN IVPB ONE (19:41)
[2022-03-18] MEDS ORDERED: HYDROmorphone HCl 2 MG/ML VIAL ONE ×2 (19:50→23:40)
[2022-03-18] MEDS ORDERED: HYDROmorphone HCL CARPU-JECT 2 MG/1 ML DISP.SYRIN IVPUSH ONE (23:39)
[2022-03-19] MEDS ORDERED: ONDANSETRON 4 MG/2 ML VIAL IVPUSH PRN (01:18)
[2022-03-19 01:26] LABS: PH,URINE 6.5 (5.0-8.0); URINE APPEARANCE CLEAR; URINE BILIRUBIN NEGATIVE (NEGATIVE); URINE COLOR YELLOW; URINE GLUCOSE (UA) NEGATIVE (NEGATIVE); URINE KETONE NEGATIVE (NEGATIVE); URINE LEUK ESTERASE NEGATIVE (NEGATIVE); URINE NITRITE NEGATIVE (NEGATIVE); URINE PROTEIN NEGATIVE (NEGATIVE)
[2022-03-19] MEDS: DEXTROSE 5%-NORMAL SALINE 1,000 ML IV SCH ×2 (03:19→17:56)
[2022-03-19] MEDS: HYDROmorphone HCl 2 MG/ML VIAL IVPUSH PRN ×2 (03:19→07:38)
[2022-03-19 04:10] VITALS: RESP 20; BMI 23.2
[2022-03-19] MEDS ORDERED: TRIMETHOBENZAMIDE HCL 200MG/2ML INJ IM PRN (05:05)
[2022-03-19] MEDS: INSULIN SLIDING SCALE (NOVOLOG) 1 VIAL SQ SCH ×4 (06:21→22:20)
[2022-03-19] MEDS ORDERED: ACETAMINOPHEN 1000 MG/100 ML BAG IVPB PRN (08:58)
[2022-03-19] MEDS ORDERED: HYDROmorphone HCl 2 MG/ML VIAL IVPUSH PRN (08:59)
[2022-03-19] MEDS ORDERED: HYDROmorphone HCl 2 MG/ML VIAL IVPB PRN (09:04)
[2022-03-19 09:36] LABS: BASO % 0.3 % (0-2.0); EOS % 1.1 % (0-4.5); HEMATOCRIT 37.9 % (32.4-45.2); HEMOGLOBIN 12.9 GM/dL (10.7-15.3); LYMPH % 25.2 % (8-40); MCH 30.5 pg (25.7-33.7); MEAN CELL VOLUME 89.9 fl (80-96); MONO % 8.6 % (3.8-10.2); NEUT % 64.8 % (42.8-82.8); PLATELET COUNT 202 10^3/uL (134-434); RBC 4.21 M/mm3 (3.60-5.2); RDW 14.5 % (11.6-15.6); WHITE BLOOD COUNT 5.3 K/mm3 (4.0-10.0)
[2022-03-19 09:37] LABS: MEAN PLT VOLUME 5.5 fl (7.5-11.1)
[2022-03-19 09:51] LABS: CHLORIDE 114 mmol/L (98-107); SODIUM 144 mmol/L (136-145)
[2022-03-19 10:01] LABS: ANION GAP 5 MMOL/L (8-16); CO2 25 mmol/L (21-32); GLUCOSE,RANDOM 111 mg/dL (74-106); MAGNESIUM 2.2 mg/dL (1.8-2.4)
[2022-03-19 10:02] LABS: BLOOD UREA NITROGEN 10.1 mg/dL (7-18)
[2022-03-19 10:04] LABS: SGPT/ALT 64 U/L (13-61)
[2022-03-19 10:05] LABS: CREATININE 0.6 mg/dL (0.55-1.3); PHOSPHOROUS 2.2 mg/dL (2.5-4.9); SGOT/AST 38 U/L (15-37)
[2022-03-19 10:06] LABS: BILIRUBIN,TOTAL 0.8 mg/dL (0.2-1)
[2022-03-19 10:07] LABS: ALK PHOS 60 U/L (45-117)
[2022-03-19 10:11] LABS: CALCIUM 7.6 mg/dL (8.5-10.1); TOT PROT 5.5 g/dl (6.4-8.2)
[2022-03-19] MEDS: HYDROmorphone HCl 2 MG/ML VIAL IVPB PRN ×3 (10:38→22:20)
[2022-03-19] MEDS: HEPARIN NA (PORCINE) 5,000 UNITS/ML 1ML VIAL SQ SCH ×2 (14:26→22:20)
[2022-03-19] MEDS: LIPASE/PROTEASE/AMYLASE 36,000 UNIT CAPSULE PO SCH (17:52)
[2022-03-20] MEDS ORDERED: ACETAMINOPHEN 325 MG TABLET (FP) PO PRN (01:10)
[2022-03-20] MEDS: HEPARIN NA (PORCINE) 5,000 UNITS/ML 1ML VIAL SQ SCH (06:26)
[2022-03-20] MEDS: INSULIN SLIDING SCALE (NOVOLOG) 1 VIAL SQ SCH ×2 (06:26→11:19)
[2022-03-20] MEDS: HYDROmorphone HCl 2 MG/ML VIAL IVPB PRN (07:20)
[2022-03-20] MEDS: LIPASE/PROTEASE/AMYLASE 36,000 UNIT CAPSULE PO SCH ×2 (09:32→12:15)
[2022-03-20] MEDS: DEXTROSE 5%-NORMAL SALINE 1,000 ML IV SCH (09:36)
[2022-03-20 09:39] VITALS: BP 120/77; PULSE 79; TEMP 98.3
[2022-03-20] MEDS ORDERED: CEFTRIAXONE 1 GM in DEXTROSE 5%-WATER - 50 ML IVPB SCH (10:00)
== END 2022-03-20 13:05 | disposition left against medical advice (07) | DRG 392 ==
LOC: JER 14:18 → JERBED 22:14 → J8W 03-19 02:49
PROVIDERS: ADMIT Internal Medicine
DX: K52.9 Noninfective gastroenteritis and colitis, unspecified (principal); K86.1 Other chronic pancreatitis; E78.5 Hyperlipidemia, unspecified; J44.9 Chronic obstructive pulmonary disease, unspecified; E11.9 Type 2 diabetes mellitus without complications
CPT/HCPCS: 36415; 71045-TC-FY; 74177-TC; 80053; 81003; 82962; 83690; 83735; 84100; 84484; 85025; 85610; 85730; 86140; 87086; 87186; 93005; 93010; 99285-25; C9803-CS; J1644; Q9967; U0003; U0005

== ENCOUNTER 2023-12-27 13:16 | Emergency (ER) | payer OTHER, MEDICARE ==
[2023-12-27 13:20] VITALS: RESP 16; BMI 20.7
[2023-12-27] MEDS ORDERED: ACETAMINOPHEN INJECTION 100 ML IVPB ONE (15:09)
[2023-12-27 15:13] LABS: BASO % 0.1 % (0-2.0); EOS % 0.7 % (0-4.5); HEMATOCRIT 47.3 % (32.4-45.2); HEMOGLOBIN 15.9 GM/dL (10.7-15.3); LYMPH % 12.5 % (8-40); MCH 29.1 pg (25.7-33.7); MCHC 33.7 g/dl (32.0-36.0); MEAN CELL VOLUME 86.2 fl (80-96); MEAN PLT VOLUME 5.2 fl (7.5-11.1); MONO % 8.6 % (3.8-10.2); NEUT % 78.1 % (42.8-82.8); PLATELET COUNT 347 10^3/uL (134-434); RBC 5.49 M/mm3 (3.60-5.2); RDW 13.7 % (11.6-15.6); WHITE BLOOD COUNT 10.5 K/mm3 (4.0-10.0)
[2023-12-27] MEDS: ACETAMINOPHEN 1000 MG/100 ML BAG IVPB ONE (15:13)
[2023-12-27 15:19] LABS: PROTHROMBIN TIME (PATIENT) 11.5 SEC (9.7-13.0)
[2023-12-27 15:21] LABS: ACTIVATED PTT 32.1 SECONDS (25.2-36.5)
[2023-12-27 15:37] LABS: POTASSIUM 5.8 mmol/L (3.5-5.1)
[2023-12-27 15:39] LABS: CALCIUM 9.3 mg/dL (8.5-10.1)
[2023-12-27 15:40] LABS: ALBUMIN 4.1 g/dl (3.4-5.0); BLOOD UREA NITROGEN 15.9 mg/dL (7-18)
[2023-12-27 15:43] LABS: CREATININE 0.8 mg/dL (0.55-1.3)
[2023-12-27 15:45] LABS: BILIRUBIN,TOTAL 1.4 mg/dL (0.2-1); TOT PROT 8.2 g/dl (6.4-8.2)
[2023-12-27] MEDS: LACTATED RINGERS SOLUTION 1000 ML INFUS.BAG IV ONE (16:02)
[2023-12-27 17:04] VITALS: BP 134/60; PULSE 68; TEMP 98.7
[2023-12-27] MEDS ORDERED: HYDROmorphone HCL CARPU-JECT 2 MG/1 ML DISP.SYRIN ONE (17:09)
[2023-12-27] MEDS: HYDROmorphone HCl 2 MG/ML VIAL IVPUSH ONE (17:26)
== END 2023-12-27 17:54 | disposition home or self-care (01) ==
LOC: JER 13:16
PROC: 3E033NZ Introduction of Analgesics, Hypnotics, Sedatives into Peripheral Vein, Percutaneous Approach (ICD-10-PCS; principal; 2023-12-27)
PROC: 3E033NZ Introduction of Analgesics, Hypnotics, Sedatives into Peripheral Vein, Percutaneous Approach (ICD-10-PCS; 2023-12-27)
DX: M25.562 Pain in left knee (principal); M25.551 Pain in right hip; R68.83 Chills (without fever); R53.1 Weakness; R79.9 Abnormal finding of blood chemistry, unspecified; W19.XXXA Unspecified fall, initial encounter; Z20.822 Contact with and (suspected) exposure to COVID-19
CPT/HCPCS: 0241U-QW; 36415; 70450-TC; 71045-TC-FY; 72170-TC-FY; 73502-TC-LT-FY; 73552-TC-LT-FY; 80053; 84443; 85025; 85610; 85730; 93005; 93010; 99285-25; J0131

== ENCOUNTER 2024-02-07 16:53 | Observation (INO) | payer OTHER, MEDICARE ==
[2024-02-07] MEDS: SODIUM CHLORIDE 1,000 ML IV SCH (18:24)
[2024-02-07 18:32] LABS: BASO % 0.4 % (0-2.0); EOS % 0.6 % (0-4.5); HEMATOCRIT 35.5 % (32.4-45.2); HEMOGLOBIN 11.9 GM/dL (10.7-15.3); LYMPH % 27.4 % (8-40); MCH 29.2 pg (25.7-33.7); MCHC 33.4 g/dl (32.0-36.0); MEAN CELL VOLUME 87.4 fl (80-96); MONO % 6.5 % (3.8-10.2); NEUT % 65.1 % (42.8-82.8); PLATELET COUNT 358 10^3/uL (134-434); RBC 4.07 M/mm3 (3.60-5.2); RDW 14.7 % (11.6-15.6)
[2024-02-07 18:33] LABS: MEAN PLT VOLUME 5.7 fl (7.5-11.1)
[2024-02-07 18:41] LABS: INR 0.97 (0.83-1.09); PROTHROMBIN TIME (PATIENT) 11.2 SEC (9.7-13.0)
[2024-02-07 18:44] LABS: ACTIVATED PTT 31.8 SECONDS (25.2-36.5)
[2024-02-07] MEDS ORDERED: HYDROmorphone HCL CARPU-JECT 2 MG/1 ML DISP.SYRIN ONE ×2 (19:18→19:47)
[2024-02-07] MEDS: HYDROmorphone HCl 2 MG/ML VIAL IVPUSH ONE ×2 (19:27→19:53)
[2024-02-07 19:57] LABS: PH,URINE 6.5 (5.0-8.0); URINE APPEARANCE CLEAR; URINE BILIRUBIN NEGATIVE (NEGATIVE); URINE COLOR YELLOW; URINE GLUCOSE (UA) NEGATIVE (NEGATIVE); URINE KETONE NEGATIVE (NEGATIVE); URINE LEUK ESTERASE NEGATIVE (NEGATIVE); URINE NITRITE NEGATIVE (NEGATIVE); URINE PROTEIN NEGATIVE (NEGATIVE); URINE UROBILINOGEN 0.2 mg/dL (0.2-1.0)
[2024-02-08 00:58] LABS: POTASSIUM 3.8 mmol/L (3.5-5.1)
[2024-02-08 01:00] LABS: ALBUMIN 3.5 g/dl (3.4-5.0); BLOOD UREA NITROGEN 12.4 mg/dL (7-18); CALCIUM 9.1 mg/dL (8.5-10.1)
[2024-02-08 01:03] LABS: CREATININE 0.5 mg/dL (0.55-1.3)
[2024-02-08 01:05] LABS: BILIRUBIN,TOTAL 0.4 mg/dL (0.2-1)
[2024-02-08 03:05] VITALS: RESP 20
[2024-02-08 04:14] VITALS: BMI 24.1
[2024-02-08] MEDS: oxyCODONE HCL 5 MG TABLET PO PRN ×2 (05:40→12:19)
[2024-02-08] MEDS: INSULIN ASPART SLIDING SCALE (NOVOLOG) 1 VIAL SQ SCH (06:18)
[2024-02-08 07:16] LABS: BASO % 0.5 % (0-2.0); EOS % 1.2 % (0-4.5); HEMATOCRIT 30.8 % (32.4-45.2); HEMOGLOBIN 10.4 GM/dL (10.7-15.3); LYMPH % 27.8 % (8-40); MCH 29.6 pg (25.7-33.7); MCHC 33.7 g/dl (32.0-36.0); MEAN CELL VOLUME 87.9 fl (80-96); MONO % 8.2 % (3.8-10.2); NEUT % 62.3 % (42.8-82.8); PLATELET COUNT 290 10^3/uL (134-434); RDW 14.6 % (11.6-15.6); WHITE BLOOD COUNT 6.3 K/mm3 (4.0-10.0)
[2024-02-08 07:24] LABS: MEAN PLT VOLUME 5.4 fl (7.5-11.1)
[2024-02-08] MEDS ORDERED: ASPIRIN 81 MG CHEWABLE TABLETS PO ONE (07:28)
[2024-02-08 07:43] LABS: ALBUMIN 3.3 g/dl (3.4-5.0); BLOOD UREA NITROGEN 11.6 mg/dL (7-18); CALCIUM 8.8 mg/dL (8.5-10.1); MAGNESIUM 2.5 mg/dL (1.8-2.4)
[2024-02-08 07:46] LABS: CREATININE 0.5 mg/dL (0.55-1.3)
[2024-02-08 07:47] LABS: BILIRUBIN,TOTAL 0.5 mg/dL (0.2-1); TOT PROT 5.8 g/dl (6.4-8.2)
[2024-02-08] MEDS ORDERED: ENOXAPARIN NA (PORCINE) 40 MG/0.4 ML DISP.SYRIN SQ SCH ×2 (10:00)
[2024-02-08] MEDS: FAMOTIDINE 20 MG TABLET PO SCH (10:43)
[2024-02-08] MEDS: BACLOFEN 10 MG TABLET (FP) PO SCH (10:43)
[2024-02-08] MEDS: CITALOPRAM HYDROBROMIDE 10 MG TABLET PO SCH (10:44)
[2024-02-08] MEDS: ACETAMINOPHEN 325 MG TABLET (FP) PO PRN (12:19)
[2024-02-08] MEDS: LIPASE/PROTEASE/AMYLASE 36,000 UNIT CAPSULE PO SCH (12:20)
[2024-02-08] MEDS: ALPRAZolam 1 MG TABLET PO SCH (12:26)
[2024-02-08 13:54] VITALS: BP 117/58; PULSE 91; TEMP 98.2
[2024-02-08] MEDS ORDERED: ROSUVASTATIN CA 10 MG TABLET PO SCH (22:00)
[2024-02-08] MEDS ORDERED: TEMAZEPAM 15 MG CAPSULE PO SCH (22:00)
== END 2024-02-08 17:30 | disposition home or self-care (01) ==
LOC: JER 16:53 → JERBED 21:30 → J7W 02-08 03:43
PROVIDERS: ADMIT Internal Medicine; ATTEND Internal Medicine
PROC: 3E033NZ Introduction of Analgesics, Hypnotics, Sedatives into Peripheral Vein, Percutaneous Approach (ICD-10-PCS; principal; 2024-02-07)
PROC: 3E0337Z Introduction of Electrolytic and Water Balance Substance into Peripheral Vein, Percutaneous Approach (ICD-10-PCS; 2024-02-07)
DX: R20.0 Anesthesia of skin (principal); R47.81 Slurred speech; Z98.890 Other specified postprocedural states; E78.5 Hyperlipidemia, unspecified; F41.8 Other specified anxiety disorders; K27.9 Peptic ulcer, site unspecified, unspecified as acute or chronic, without hemorrhage or perforation; E11.9 Type 2 diabetes mellitus without complications; K86.1 Other chronic pancreatitis; R42 Dizziness and giddiness; Z29.89 Encounter for other specified prophylactic measures; K92.1 Melena; K76.9 Liver disease, unspecified; Z88.8 Allergy status to other drugs, medicaments and biological substances; Z88.5 Allergy status to narcotic agent
CPT/HCPCS: 36415; 70450-TC; 70496-TC; 70498-TC; 71045-TC-FY; 72125-TC; 72131-TC; 72141-TC; 72148-TC; 80053; 81003; 82962; 83036; 83615; 83735; 83880; 84100; 84484; 85025; 85610; 85730; 86140; 86850; 86900; 86901; 87635; 93005; 93010; 96361; 96374; 96376; 97116-GP; 97162-GP; 99285-25; G0378